=== PATIENT | male | born 1955 | race Caucasian/White ===

== ENCOUNTER → 2018-08-31 14:16 | Outpatient (CLI) | payer OTHER, SELFPAY ==
[2016-07-26 13:10] VITALS: BMI 29.0
--- NOTE | 2018-08-31 14:21 | RAD_ITS ---
STUDY: X-RAY - LUMBAR SPINE REASON FOR EXAM: Male, 62 years old. Pain TECHNIQUE: 5 view(s) of the lumbar spine were obtained. COMPARISON: None FINDINGS: Diffuse degenerative disc and facet disease. No compression deformities. Alignment is normal. Foramina are patent. Arterial calcifications. RAD/L/S Spine Min 4 Views IMPRESSION: Diffuse degenerative disc and facet disease. Foramina are patent. Electronically Signed: Sylvester Schofield MD at 14:46 EST Tel , Service support ,
--- OUTSIDE RECORDS SUMMARY | 2018-12-03 06:42 | XMS RPT_ITS | Continuity of Care Document ---
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 Objective Objective/Function: ALL GOALS MET - Goals Goal 1:: DECREASE C/O LBP Goal Progress: Goal Met Goal 2:: DECREASE C/O LEFT LE SX'S Goal Progres s: Goal Met Goal 3:: IMPROVE BENDING, LIFTING, PUSHING, PULLING, AND WORK FUNCTION Goal Progress: Goal Met Goal 4:: INSTRUCT IN PROPHYLAXIS Goal Progress: Goal Met - Plan Plan: FOCUS ON CORE STRE NGTH AND POSTURE/BODY MECHANICS. MODALITIES NEEDED. PLEASE GIVE STAND BY ASSIST NEEDED FOR BALANCE CHALLENGE EX'S FOR SAFETY. - D/C Information If there are questions or concerns regarding thi s patient's physical therapy, please feel free to call me at [phone]. Thank you for the referral of this patient. Sincerely, Jade Cooney <Electronically signed by Jade Cooney PT, Aubree ert. MDT> 10/24/15 1028 CC: Criss LunaCrispin Betsybrittny Calvert DO DIANA Signed 04-Oct-2015 EKG ([id number]) Comments: ekg showed normal sinus rhythym, normal axis, no acute st/t wave changes Result: [MEASUREMENTS ANALYSIS] Date of Test: 10/04/2015 14:20:52; Heart Rate: 69; SD Interval: 164; QRS: 106; QT Interval: 384; Corrected QT Interval (QTc): 399; P Wave [place]: 41; QRS Wave [place]: 33; T Wave [place] : 22; Blood Pressure: 128/72 [ECG DIAGNOSTIC STATEMENTS] Date of Test: 10/04/2015 14:20:52; Summary: Sinus Rhythm WITHIN NORMAL LIMITS 26-Sep-2015 Inital Evaluation - PT Result: Comments: See Note; NOTES: [facility] [address] [place], [place] [address] Fax REHABILITATION SE [facility] INITIAL EVALUATION MR#: [id number] Acct: [id number] Name: GONZÁLEZ PETTTI Rep #: [id number] : 1955 59 From: Jade Cooney Referring Dr.: Criss Luna Status: REG RCR Insurance: [facility] Date: Patient's Visit Information GONZÁLEZ PETTIT is a 59 year old M, referred to Physical Therapy by Criss Luna,, with a diagnosis of SCIATICA. 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 OFF WORK YESTERDAY AND TODAY FOR THIS. HOPES TO G O BACK TOMORROW. Disability: NO. Present symptoms: LEFT BACK, BUTTOCK, THIGH, AND KNEE. Present since: LAST FRIDAY. Pain Scale: 5-9/10. Currently: WORSENING. Commenced as a result of: NO APPARENT RE ASON. Symptoms at onset: LEFT HIP. Worse: BENDING, SITTING, LIFTING, PUSHING, PULLING, TYING HIS SHOES. Better: STANDING, LYING DOWN, WALKING, PAIN PILLS (MELOXICAM) AND TORODOL SHOT YESTERDAY. HE ALSO STARTED A STEROID DOSE ALONZO TODAY. Disturbed sleep: NO. Previous history: CHRONIC LPP. Previous treatment: CHIROPRACTOR, MASSAGE, SOME PT. Coughing/sneezing/straining: NEGATIVE. Gait: OK NOW BUT UNABL E TO TAKE A FULL STRIDE UNTIL TODAY. LEFT LEG FEELS WEAK AT TIMES. Difficulty initiating urinatin: NO. Accidents: NO. Unexplained weight loss: NO. Imaging: NO. PMH: 2011 TUMOR REMOVED FROM BLADDER CAROLYNE T WAS CANCEROUS. - Objective Sitting Posture: POOR. Standing Posture: POOR. Lordosis: REDUCED. Lateral shift: NO. Active Correction of posture: NO EFFECT. Motor deficit: BILATERAL LE STRENGHT 5/5 W ITH MMT EXCEPT HIP FLEXION 4/5 AND BILATERAL QUADS 4/5. HE HAS BILATERAL KNEE PAIN WITH KNEE ROM AND STRENGHT TESTING. Sensory deficit: NO. ROM deficit: TIGHT BILATERAL HAMSTRINGS AND GASTROC SOLEUS COMPLEX'S. Dural Signs: POSITIVE BILATERAL LE'S LEFT GREATER THAN RIGHT. Lumbar mvmt loss: flex - NIL. ext - MAURO. R SG - MIN. L SG - MIN. Core strength: POOR. Palpation: TENDER AT L45 REGION - Goals Goal 1:: DECREASE C/O LBP Goal Time Frame: 4-6 Weeks Goal 2:: DECREASE C/O LEFT LE SX'S Goal Time Frame: 4-6 Weeks Goal 3:: IMPROVE BENDING, LIFTING, PUSHING, PULLING, AND WORK FUNCTION Goal Time Frame: 4-6 Weeks Goal 4:: INSTRUCT IN PROPHYLAXIS Goal Time Frame: 4-6 Weeks - Rehabilitation Potential Rehabilitation Potential: Good - Anticipated Interventions Patient/Client Instruction: Ed ucate patient on: Condition, Plan of Care, Risk Factors, Benefits of Fitness Program For the Purpose of:: To improve self management Therapeutic Exercise to Include: Strength training, Body mechanics , Postural training, Dynamic Lumbar Stabilization, Scapular Strength/Stabilization For the Purpose of:: To improve ability of physical actions for home/community/work/leisure TENS: Yes Cryotherapy ( ice pack, ice massage): Yes Thermo therapy (hot pack): Yes Ultrasound (thermal/non thermal): Yes For the Purpose of:: To decrease pain, To decrease swelling/inflammation Thank you for the opport unity to evaluate your patient. For Medicare and Medicare HMO plans, please review the plan of care and approve it. It will need to be FAXED BACK to us at [phone] for Medicare purposes. Karine e let me know if there are questions or concerns regarding this plan of care. Physician Signature: Date: <Electronically signed by Jade Cooney > 09/26/15 1149 CC: Criss Calvert DO DIANA Signed For Medicare only, by signing this I certify the plan of care. Physicians Signature Date 27-Jan-2014 Chest without Contrast Result: Comments: See Note; NOTES: [facility] Imaging Services [address] [place] [address] CAT Scan Report MR#: [id number] Acct: [id number] Name: GONZÁLEZ PETTIT Rep #: [id number] : 1955 M 58 From: Dilip Rutledge MD PCP: Betsy Calvert DO Status: REG CLI Study: Chest without Contrast Date of Exam: 01/27/14 Exam# [id number] Ordering Dr: Betsy Calvert DO STUDY: CT CHEST WITHOUT CONTRAST REASON FOR EXAM: Male, 58 years old. Followup for lung nodule. The patient has a history of bladder cancer. RADIATION DOSAGE (If Supplied By Facility): CTDIvol = ( 23.07 ) mG y, DLP = ( 721.24 ) mGycm TECHNIQUE: High resolution transaxial imaging was performed without the administration of intravenous contrast material. Multiplanar coronal and sagittal images were refor matted. COMPARISON: Comparison is made with prior study dated June 16, 2013. FINDINGS: There is evidence of elevation of the right hemidiaphragm. Persistent scarring at the right lung base. Tiny pulmonary nodules are once again seen. There is a stable 8 mm nodule in the peripheral aspect of the left lower lobe. Is also evidence of a persistent 1 cm nodul e in the left lower lobe. Stable left pleural effusion with underlying atelectasis. Normal heart and pericardium. There are multiple small lymph nodes within the mediastinum, which are normal in s ize and morphology most compatible with reactive lymph hyperplasia. Normal hilar regions. Normal unenhanced pulmonary arteries. Normal aorta arch and descending thoracic aorta. There are multi-level degenerative changes of the thoracic spine. Moderate sized hiatal hernia. IMPRESSION: Stable examination. Electronically Signed: Dilip Rutledge MD 201 12/18/14 at 15:16 EDT Tel [phone], Service support [phone], CC: Btesy Calvert DO Tobacco Baler: Signed 16-Jun-2013 Chest without Contrast Result: Comments: See Note; NOTES: [facility] Imaging Services [address] [place] [address] CAT Scan Report MR#: [id number] Acct: [id number] Name: GONZÁLEZ PETTIT Rep #: [id number] : 1955 M 57 From: Dilip Rutledge MD PCP: Betsy Calvert DO Status: REG CLI Study: Chest without Contrast Date of Exam: 06/16/13 Exam# [id number] Ordering Dr: Betsy Calvert DO STUDY: CT CHEST WITHOUT CONTRAST REASON FOR EXAM: Male, 57 years old. Followup for lung nodule. RADIATION DOSAGE (If Supplied By Facility): CTDIvol = ( 20.94 ) mGy, DLP = ( 760.50 ) mGycm TECHNIQUE: High r esolution transaxial imaging was performed without the administration of intravenous contrast material. Multiplanar coronal and sagittal images were reformatted. COMPARISON: Comparison is made with prior examination dated September 01, 2012. FINDINGS: Once again, there is elevation of the right hemidiaphragm. Mild scarring at the right lung base. The previ ously seen tiny pulmonary nodules are once again visualized are these are unchanged. No new abnormality is present. Stable small left pleural effusion with underlying atelectasis. There are calcifi cations of the coronary arteries. There are multiple small lymph nodes within the mediastinum, which are normal in size and morphology most compatible with reactive lymph hyperplasia. The largest me asures 2 cm and is in the aortopulmonary window. Normal hilar regions. Normal unenhanced pulmonary arteries. Normal aorta arch and descending thoracic aorta. Once again, there is evidence of healed bilateral rib fractures. There is no demonstrated abnormality of the visualized upper abdomen. IMPRESSION: Stable examination. Signed: Michaela Alvarez June 16, 2013 at 9:49:54 AM EDT [phone] Electronically Signed GP/GP If you are the referring physician and would like to consult with the radiologist who provided this interpretation, please contact Dilip Rutledge M.D. at [phone]. If this radiologist is unavailable, you will be directed to another radiologist to assist. If you are a patient with a question regarding thi s report, please contact your referring physician directly. Professional Interpretation Provided By: [employer], Phone , These documents contain legally protected an d confidential health information intended only for the use of the individual or entity named above. If you are not the intended recipient, you are hereby notified that any disclosure, copying, distr ibution, or other use of these documents is strictly prohibited. If you have received this information in error, please notify the sender immediately and arrange for the return or destruction of thes e documents. CC: Betsy Calvert DO Tobacco Baler: Signed 16-Jun-2013 Chest without Contrast Result: Comments: See Note; NOTES: [facility] Imaging Services [address] [place] [id number] CAT Scan Report MR#: [id number] Acct: [id number] Name: GONZÁLEZ PETTIT Rep #: [id number] : 1955 M 57 From: Dilip Rutledge MD PCP: Betsy Calvert DO Status: REG CLI Study: Chest without Contrast Date of Exam: 06/16/13 Exam# [id number] Ordering Dr: Betsy Calvert DO STUDY: CT CHEST WITHOUT CONTRAST REASON FOR EXAM: Male, 57 years old. Followup for lung nodule. RADIATION DOSAGE (If Supplied By Facility): CTDIvol = ( 20.94 ) mGy, DLP = ( 760.50 ) mGycm TECHNIQUE: High r esolution transaxial imaging was performed without the administration of intravenous contrast material. Multiplanar coronal and sagittal images were reformatted. COMPARISON: Comparison is made with prior examination dated September 01, 2012. FINDINGS: Once again, there is elevation of the right hemidiaphragm. Mild scarring at the right lung base. The previ ously seen tiny pulmonary nodules are once again visualized are these are unchanged. No new abnormality is present. Stable small left pleural effusion with underlying atelectasis. There are calcifi cations of the coronary arteries. There are multiple small lymph nodes within the mediastinum, which are normal in size and morphology most compatible with reactive lymph hyperplasia. The largest me asures 2 cm and is in the aortopulmonary window. Normal hilar regions. Normal unenhanced pulmonary arteries. Normal aorta arch and descending thoracic aorta. Once again, there is evidence of healed bilateral rib fractures. There is no demonstrated abnormality of the visualized upper abdomen. IMPRESSION: Stable examination. Signed: Michaela Alvarez June 16, 2013 at 9:49:54 AM EDT [phone] Electronically Signed GP/GP If you are the referring physician and would like to consult with the radiologist who provided this interpretation, please contact Dilip Rutledge M.D. at [phone]. If this radiologist is unavailable, you will be directed to another radiologist to assist. If you are a patient with a question regarding thi s report, please contact your referring physician directly. Professional Interpretation Provided By: [employer], Phone , These documents contain legally protected an d confidential health information intended only for the use of the individual or entity named above. If you are not the intended recipient, you are hereby notified that any disclosure, copying, distr ibution, or other use of these documents is strictly prohibited. If you have received this information in error, please notify the sender immediately and arrange for the return or destruction of thes e documents. CC: Betsy Calvert DO Tobacco Baler: Signed Immunization Name Dates Details Influenza (3 years and up) on: 18-Aug-2006 Influenza (3 years and up) on: 22-Aug-2006 Influenza (3 years and up) on: 07-Jul-2007 Comments: given in left deltoid, 0.5cc, lot#[id number], exp. ..08 WF Influenza (3 years and up) on: 15-Jul-2008 Comments: Lot #[id number]-right deltoidDose0.5mlgiven by Aurelia Kraft LPN Influenza (3 years and up) on: 16-Jun-2009 Family History Unknown Family Member Name Dates Details Father Comments: In good health Status: Active Mother Comments: from air embolus during surgery Status: Active Social History Name Dates Details Non Drinker/No Alcohol Use Status: Active Non Smoker/No Tobacco Use Comments: 04/30/11 Status: Active Tobacco use: Never smoker. Comments: 10/09/11 Status: Active Tobacco use: Never smoker. Status: Inactive Tobacco use: Never smoker. Status: Inactive Tobacco use: Never smoker. Status: Inactive Tobacco use: Never smoker. Status: Inactive Smoking Status Name Dates Details Never smoker Vital Signs Date Test Result Details :41 Temperature 98.1 f Comments: Method: Temporal Pulse 91 /min Comments: Pattern: Regular Respiration Rate 17 /min Comments: Pattern: Unlabored O2 SAT 97 % Comments: Room air BP Systolic 158 mm[Hg] Comments: Patient Position: Sitting; Cuff Location: Left Arm; Cuff Size: Standard BP Diastolic 82 mm[Hg] Comments: Patient Position: Sitting; Cuff Location: Left Arm; Cuff Size: Standard Weight 219.125 lb Height 68.75 in Body Mass Index Calculated 32.59 kg/m2 Body Surface Area Calculated 2.14 m2 :05 Temperature 97.6 f Pulse 79 /min Comments: Pattern: Regular Respiration Rate 16 /min Comments: Pattern: Unlabored O2 SAT 94 % Comments: Room air BP Systolic 148 mm[Hg] Comments: Patient Position: Sitting; Cuff Location: Left Arm; Cuff Size: Standard BP Diastolic 86 mm[Hg] Comments: Patient Position: Sitting; Cuff Location: Left Arm; Cuff Size: Standard Weight 219.125 lb Height 68.75 in Body Mass Index Calculated 32.59 kg/m2 Body Surface Area Calculated 2.14 m2 :18 Pulse 70 /min Comments: Pattern: Regular Respiration Rate 18 /min Comments: Pattern: Unlabored O2 SAT 96 % Comments: Room air BP Systolic 132 mm[Hg] Comments: Patient Position: Sitting; Cuff Location: Left Arm; Cuff Size: Standard BP Diastolic 80 mm[Hg] Comments: Patient Position: Sitting; Cuff Location: Left Arm; Cuff Size: Standard Weight 219.125 lb Height 68.75 in Body Mass Index Calculated 32.59 kg/m2 Body Surface Area Calculated 2.14 m2 :58 Pulse 74 /min Comments: Pattern: Regular Respiration Rate 18 /min Comments: Pattern: Unlabored O2 SAT 96 % Comments: Room air BP Systolic 162 mm[Hg] Comments: Patient Position: Sitting; Cuff Location: Left Arm; Cuff Size: Large BP Diastolic 102 mm[Hg] Comments: Patient Position: Sitting; Cuff Location: Left Arm; Cuff Size: Large Weight 219.125 lb Height 68.75 in Body Mass Index Calculated 32.59 kg/m2 Body Surface Area Calculated 2.14 m2 :55 BP Systolic 132 mm[Hg] Comments: Patient Position: Sitting; Cuff Location: Left Arm; Cuff Size: Standard BP Diastolic 84 mm[Hg] Comments: Patient Position: Sitting; Cuff Location: Left Arm; Cuff Size: Standard :59 Pulse 57 /min Comments: Pattern: Regular Respiration Rate 18 /min Comments: Pattern: Unlabored O2 SAT 93 % Comments: Room air BP Systolic 140 mm[Hg] Comments: Patient Position: Sitting; Cuff Location: Left Arm; Cuff Size: Large BP Diastolic 80 mm[Hg] Comments: Patient Position: Sitting; Cuff Location: Left Arm; Cuff Size: Large Weight 218.125 lb Height 68.75 in Body Mass Index Calculated 32.45 kg/m2 Body Surface Area Calculated 2.14 m2 :43 BP Systolic 158 mm[Hg] Comments: Patient Position: Sitting; Cuff Location: Left Arm; Cuff Size: Standard BP Diastolic 80 mm[Hg] Comments: Patient Position: Sitting; Cuff Location: Left Arm; Cuff Size: Standard Weight 208.375 lb Height 68.75 in Body Mass Index Calculated 31 kg/m2 Body Surface Area Calculated 2.1 m2 :13 Pulse 64 /min Comments: Pattern: Regular Respiration Rate 18 /min Comments: Pattern: Unlabored O2 SAT 92 % Comments: Room air BP Systolic 128 mm[Hg] Comments: Patient Position: Sitting; Cuff Location: Left Arm; Cuff Size: Large BP Diastolic 70 mm[Hg] Comments: Patient Position: Sitting; Cuff Location: Left Arm; Cuff Size: Large Weight 208.375 lb Height 68.75 in Body Mass Index Calculated 31 kg/m2 Body Surface Area Calculated 2.1 m2 :40 Pulse 85 /min Comments: Pattern: Regular Respiration Rate 18 /min Comments: Pattern: Unlabored O2 SAT 95 % Comments: Room air BP Systolic 128 mm[Hg] Comments: Patient Position: Sitting; Cuff Location: Left Arm; Cuff Size: Large BP Diastolic 70 mm[Hg] Comments: Patient Position: Sitting; Cuff Location: Left Arm; Cuff Size: Large Weight 210.125 lb Height 68.75 in Body Mass Index Calculated 31.26 kg/m2 Body Surface Area Calculated 2.1 m2 :40 Pulse 84 /min Comments: Pattern: Regular Respiration Rate 18 /min Comments: Pattern: Unlabored O2 SAT 94 % Comments: Room air BP Systolic 144 mm[Hg] Comments: Patient Position: Sitting; Cuff Location: Left Arm; Cuff Size: Large BP Diastolic 82 mm[Hg] Comments: Patient Position: Sitting; Cuff Location: Left Arm; Cuff Size: Large Weight 210.125 lb Height 68.75 in Body Mass Index Calculated 31.26 kg/m2 Body Surface Area Calculated 2.1 m2 :17 Pulse 72 /min Comments: Pattern: Regular Respiration Rate 18 /min Comments: Pattern: Unlabored O2 SAT 93 % Comments: Room air BP Systolic 124 mm[Hg] Comments: Patient Position: Sitting; Cuff Location: Left Arm; Cuff Size: Large BP Diastolic 82 mm[Hg] Comments: Patient Position: Sitting; Cuff Location: Left Arm; Cuff Size: Large Weight 209.375 lb Height 68.75 in Body Mass Index Calculated 31.14 kg/m2 Body Surface Area Calculated 2.1 m2 :38 Pulse 68 /min Comments: Pattern: Regular Respiration Rate 18 /min Comments: Pattern: Unlabored O2 SAT 98 % Comments: Room air BP Systolic 128 mm[Hg] Comments: Patient Position: Sitting; Cuff Location: Left Arm; Cuff Size: Large BP Diastolic 78 mm[Hg] Comments: Patient Position: Sitting; Cuff Location: Left Arm; Cuff Size: Large Weight 210 lb Height 68.75 in Body Mass Index Calculated 31.24 kg/m2 Body Surface Area Calculated 2.1 m2 :27 Temperature 97.4 f Pulse 65 /min Comments: Pattern: Regular Respiration Rate 18 /min Comments: Pattern: Unlabored O2 SAT 95 % Comments: Room air BP Systolic 122 mm[Hg] Comments: Patient Position: Sitting; Cuff Location: Left Arm; Cuff Size: Large BP Diastolic 80 mm[Hg] Comments: Patient Position: Sitting; Cuff Location: Left Arm; Cuff Size: Large Weight 211.25 lb Height 68.75 in Body Mass Index Calculated 31.42 kg/m2 Body Surface Area Calculated 2.11 m2 :27 Temperature 98.1 f Comments: Method: Tympanic Pulse 79 /min Comments: Pattern: Regular Respiration Rate 18 /min Comments: Pattern: Unlabored O2 SAT 96 % Comments: Room air BP Systolic 120 mm[Hg] Comments: Patient Position: Sitting; Cuff Location: Left Arm; Cuff Size: Standard BP Diastolic 78 mm[Hg] Comments: Patient Position: Sitting; Cuff Location: Left Arm; Cuff Size: Standard Weight 211.125 lb Height 68.75 in Body Mass Index Calculated 31.4 kg/m2 Body Surface Area Calculated 2.11 m2 :52 Temperature 98.2 f Pulse 55 /min Comments: Pattern: Regular Respiration Rate 17 /min Comments: Pattern: Unlabored O2 SAT 96 % Comments: Room air BP Systolic 126 mm[Hg] Comments: Patient Position: Sitting; Cuff Location: Left Arm; Cuff Size: Standard BP Diastolic 84 mm[Hg] Comments: Patient Position: Sitting; Cuff Location: Left Arm; Cuff Size: Standard Weight 211.125 lb Height 68.75 in Body Mass Index Calculated 31.4 kg/m2 Body Surface Area Calculated 2.11 m2 :24 Temperature 97.4 f Pulse 71 /min Comments: Pattern: Regular Respiration Rate 16 /min Comments: Pattern: Unlabored O2 SAT 97 % Comments: Room air BP Systolic 120 mm[Hg] Comments: Patient Position: Sitting; Cuff Location: Left Arm; Cuff Size: Standard BP Diastolic 82 mm[Hg] Comments: Patient Position: Sitting; Cuff Location: Left Arm; Cuff Size: Standard Weight 211.125 lb Height 68.75 in Body Mass Index Calculated 31.4 kg/m2 Body Surface Area Calculated 2.11 m2 :33 Temperature 97.1 f Comments: Method: Temporal Pulse 72 /min Comments: Pattern: Regular Respiration Rate 16 /min Comments: Pattern: Unlabored BP Systolic 128 mm[Hg] Comments: Patient Position: Sitting; Cuff Location: Left Arm; Cuff Size: Standard BP Diastolic 72 mm[Hg] Comments: Patient Position: Sitting; Cuff Location: Left Arm; Cuff Size: Standard Weight 211.125 lb Height 68.75 in Body Mass Index Calculated 31.4 kg/m2 Body Surface Area Calculated 2.11 m2 :36 Temperature 98.2 f Comments: Method: Temporal Pulse 71 /min Comments: Pattern: Regular Respiration Rate 17 /min Comments: Pattern: Unlabored O2 SAT 96 % Comments: Room air BP Systolic 140 mm[Hg] Comments: Patient Position: Sitting; Cuff Location: Left Arm; Cuff Size: Standard BP Diastolic 84 mm[Hg] Comments: Patient Position: Sitting; Cuff Location: Left Arm; Cuff Size: Standard Weight 212.125 lb Height 68.75 in Body Mass Index Calculated 31.55 kg/m2 Body Surface Area Calculated 2.11 m2 :17 Temperature 98.2 f Pulse 87 /min Comments: Pattern: Regular Respiration Rate 16 /min Comments: Pattern: Unlabored O2 SAT 97 % Comments: Room air BP Systolic 142 mm[Hg] Comments: Patient Position: Sitting; Cuff Location: Left Arm; Cuff Size: Standard BP Diastolic 82 mm[Hg] Comments: Patient Position: Sitting; Cuff Location: Left Arm; Cuff Size: Standard Weight 212.125 lb Height 68.75 in Body Mass Index Calculated 31.55 kg/m2 Body Surface Area Calculated 2.11 m2 :13 Temperature 97.5 f Pulse 68 /min Comments: Pattern: Regular Respiration Rate 16 /min Comments: Pattern: Unlabored BP Systolic 118 mm[Hg] Comments: Patient Position: Sitting; Cuff Location: Left Arm; Cuff Size: Large BP Diastolic 82 mm[Hg] Comments: Patient Position: Sitting; Cuff Location: Left Arm; Cuff Size: Large Weight 215 lb Height 68.75 in Body Mass Index Calculated 31.98 kg/m2 Body Surface Area Calculated 2.12 m2 :19 Temperature 98.7 f Comments: Method: Oral Pulse 90 /min Comments: Pattern: Regular Respiration Rate 18 /min O2 SAT 96 % Comments: Room air BP Systolic 122 mm[Hg] Comments: Patient Position: Sitting; Cuff Location: Left Arm; Cuff Size: Standard BP Diastolic 80 mm[Hg] Comments: Patient Position: Sitting; Cuff Location: Left Arm; Cuff Size: Standard Weight 212 lb Height 68.75 in Body Mass Index Calculated 31.53 kg/m2 Body Surface Area Calculated 2.11 m2 :19 Temperature 97.7 f Pulse 60 /min Comments: Pattern: Regular Respiration Rate 16 /min Comments: Pattern: Unlabored BP Systolic 114 mm[Hg] Comments: Patient Position: Sitting; Cuff Location: Left Arm; Cuff Size: Large BP Diastolic 82 mm[Hg] Comments: Patient Position: Sitting; Cuff Location: Left Arm; Cuff Size: Large Weight 212 lb Height 68.75 in Body Mass Index Calculated 31.53 kg/m2 Body Surface Area Calculated 2.11 m2 :08 Temperature 98 f Comments: Method: Oral Pulse 84 /min Comments: Pattern: Regular Respiration Rate 17 /min O2 SAT 98 % Comments: Room air BP Systolic 150 mm[Hg] Comments: Patient Position: Sitting; Cuff Location: Left Arm; Cuff Size: Standard BP Diastolic 82 mm[Hg] Comments: Patient Position: Sitting; Cuff Location: Left Arm; Cuff Size: Standard Weight 218.1875 lb Height 68.75 in Body Mass Index Calculated 32.46 kg/m2 Body Surface Area Calculated 2.14 m2 :20 Temperature 97.2 f Comments: Method: Temporal Pulse 80 /min Comments: Pattern: Regular Respiration Rate 17 /min Comments: Pattern: Unlabored O2 SAT 94 % Comments: Room air BP Systolic 118 mm[Hg] Comments: Patient Position: Sitting; Cuff Location: Left Arm; Cuff Size: Standard BP Diastolic 74 mm[Hg] Comments: Patient Position: Sitting; Cuff Location: Left Arm; Cuff Size: Standard Weight 218.1875 lb Height 68.75 in Body Mass Index Calculated 32.46 kg/m2 Body Surface Area Calculated 2.14 m2 :40 Temperature 98.3 f Comments: Method: Oral Pulse 72 /min Comments: Pattern: Regular Respiration Rate 18 /min Comments: Pattern: Unlabored O2 SAT 96 % Comments: Room air BP Systolic 110 mm[Hg] Comments: Patient Position: Sitting; Cuff Location: Left Arm; Cuff Size: Standard BP Diastolic 72 mm[Hg] Comments: Patient Position: Sitting; Cuff Location: Left Arm; Cuff Size: Standard Weight 218.1875 lb Height 68.75 in Body Mass Index Calculated 32.46 kg/m2 Body Surface Area Calculated 2.14 m2 :18 Temperature 96.7 f Comments: Method: Oral Pulse 59 /min Comments: Pattern: Regular Respiration Rate 18 /min Comments: Pattern: Unlabored O2 SAT 98 % Comments: Room air BP Systolic 128 mm[Hg] Comments: Patient Position: Sitting; Cuff Location: Left Arm; Cuff Size: Standard BP Diastolic 72 mm[Hg] Comments: Patient Position: Sitting; Cuff Location: Left Arm; Cuff Size: Standard Weight 213.1875 lb Height 68.75 in Body Mass Index Calculated 31.71 kg/m2 Body Surface Area Calculated 2.12 m2 :05 Temperature 97.9 f Comments: Method: Oral Pulse 60 /min Comments: Pattern: Regular Respiration Rate 18 /min O2 SAT 97 % Comments: Room air BP Systolic 120 mm[Hg] Comments: Patient Position: Sitting; Cuff Location: Left Arm; Cuff Size: Standard BP Diastolic 78 mm[Hg] Comments: Patient Position: Sitting; Cuff Location: Left Arm; Cuff Size: Standard Weight 213 lb Height 68.75 in Body Mass Index Calculated 31.68 kg/m2 Body Surface Area Calculated 2.12 m2 :11 Temperature 97.8 f Comments: Method: Oral Pulse 70 /min Comments: Pattern: Regular Respiration Rate 18 /min Comments: Pattern: Unlabored BP Systolic 116 mm[Hg] Comments: Patient Position: Sitting; Cuff Location: Left Arm; Cuff Size: Standard BP Diastolic 76 mm[Hg] Comments: Patient Position: Sitting; Cuff Location: Left Arm; Cuff Size: Standard Weight 213 lb Height 68.75 in Body Mass Index Calculated 31.68 kg/m2 Body Surface Area Calculated 2.12 m2 :20 Temperature 97.7 f Pulse 64 /min Comments: Pattern: Regular Respiration Rate 16 /min Comments: Pattern: Unlabored BP Systolic 114 mm[Hg] Comments: Patient Position: Sitting; Cuff Location: Left Arm; Cuff Size: Large BP Diastolic 84 mm[Hg] Comments: Patient Position: Sitting; Cuff Location: Left Arm; Cuff Size: Large Weight 213 lb Height 68.75 in Body Mass Index Calculated 31.68 kg/m2 Body Surface Area Calculated 2.12 m2 :17 Temperature 97.4 f Pulse 64 /min Comments: Pattern: Regular Respiration Rate 18 /min Comments: Pattern: Unlabored BP Systolic 126 mm[Hg] Comments: Patient Position: Sitting; Cuff Location: Left Arm; Cuff Size: Large BP Diastolic 74 mm[Hg] Comments: Patient Position: Sitting; Cuff Location: Left Arm; Cuff Size: Large Weight 213 lb Height 68.75 in Body Mass Index Calculated 31.68 kg/m2 Body Surface Area Calculated 2.12 m2 :48 Temperature 97.6 f Comments: Method: Oral Pulse 60 /min Comments: Pattern: Regular Respiration Rate 18 /min BP Systolic 108 mm[Hg] Comments: Patient Position: Sitting; Cuff Location: Left Arm; Cuff Size: Standard BP Diastolic 70 mm[Hg] Comments: Patient Position: Sitting; Cuff Location: Left Arm; Cuff Size: Standard Weight 211 lb Height 68.75 in Body Mass Index Calculated 31.39 kg/m2 Body Surface Area Calculated 2.11 m2 :54 Temperature 97.3 f Pulse 58 /min Comments: Pattern: Regular Respiration Rate 18 /min Comments: Pattern: Unlabored BP Systolic 106 mm[Hg] Comments: Patient Position: Sitting; Cuff Location: Left Arm; Cuff Size: Large BP Diastolic 72 mm[Hg] Comments: Patient Position: Sitting; Cuff Location: Left Arm; Cuff Size: Large Weight 211 lb Height 68.75 in Body Mass Index Calculated 31.39 kg/m2 Body Surface Area Calculated 2.11 m2 :10 Temperature 97.9 f Comments: Method: Oral Pulse 60 /min Comments: Pattern: Regular Respiration Rate 18 /min O2 SAT 97 % Comments: Room air BP Systolic 118 mm[Hg] Comments: Patient Position: Sitting; Cuff Location: Left Arm; Cuff Size: Standard BP Diastolic 80 mm[Hg] Comments: Patient Position: Sitting; Cuff Location: Left Arm; Cuff Size: Standard Weight 209 lb Height 68.75 in Body Mass Index Calculated 31.09 kg/m2 Body Surface Area Calculated 2.1 m2 :14 Temperature 99 f Pulse 64 /min Comments: Pattern: Regular Respiration Rate 16 /min Comments: Pattern: Unlabored BP Systolic 126 mm[Hg] Comments: Patient Position: Sitting; Cuff Location: Left Arm; Cuff Size: Large BP Diastolic 82 mm[Hg] Comments: Patient Position: Sitting; Cuff Location: Left Arm; Cuff Size: Large Weight 209 lb Height 68.75 in Body Mass Index Calculated 31.09 kg/m2 Body Surface Area Calculated 2.1 m2 :23 Comments: no meds yet today Temperature 100.6 f Comments: Method: Oral Pulse 90 /min Comments: Pattern: Regular O2 SAT 96 % Comments: Room air BP Systolic 140 mm[Hg] Comments: Patient Position: Sitting; Cuff Location: Left Arm; Cuff Size: Standard BP Diastolic 84 mm[Hg] Comments: Patient Position: Sitting; Cuff Location: Left Arm; Cuff Size: Standard Weight 210 lb Height 68.75 in Body Mass Index Calculated 31.24 kg/m2 Body Surface Area Calculated 2.1 m2 :09 Temperature 98.1 f Pulse 72 /min Comments: Pattern: Regular Respiration Rate 16 /min Comments: Pattern: Unlabored BP Systolic 120 mm[Hg] Comments: Patient Position: Sitting; Cuff Location: Left Arm; Cuff Size: Large BP Diastolic 72 mm[Hg] Comments: Patient Position: Sitting; Cuff Location: Left Arm; Cuff Size: Large Weight 210 lb Height 68.75 in Body Mass Index Calculated 31.24 kg/m2 Body Surface Area Calculated 2.1 m2 :08 Temperature 98.2 f Comments: Method: Oral Pulse 60 /min Comments: Pattern: Regular Respiration Rate 20 /min Comments: Pattern: Unlabored BP Systolic 120 mm[Hg] Comments: Patient Position: Sitting; Cuff Location: Left Arm; Cuff Size: Large BP Diastolic 80 mm[Hg] Comments: Patient Position: Sitting; Cuff Location: Left Arm; Cuff Size: Large Weight 207 lb Height 68.75 in Body Mass Index Calculated 30.79 kg/m2 Body Surface Area Calculated 2.09 m2 :56 Temperature 98.3 f Comments: Method: Oral Pulse 68 /min Comments: Pattern: Regular Respiration Rate 18 /min Comments: Pattern: Unlabored BP Systolic 110 mm[Hg] Comments: Patient Position: Sitting; Cuff Location: Left Arm; Cuff Size: Large BP Diastolic 72 mm[Hg] Comments: Patient Position: Sitting; Cuff Location: Left Arm; Cuff Size: Large Weight 201 lb Height 68.75 in Body Mass Index Calculated 29.9 kg/m2 Body Surface Area Calculated 2.06 m2 :19 Temperature 96.7 f Pulse 58 /min Comments: Pattern: Regular Respiration Rate 18 /min Comments: Pattern: Unlabored BP Systolic 110 mm[Hg] Comments: Patient Position: Sitting; Cuff Location: Left Arm; Cuff Size: Large BP Diastolic 80 mm[Hg] Comments: Patient Position: Sitting; Cuff Location: Left Arm; Cuff Size: Large Weight 208 lb Height 68.75 in Body Mass Index Calculated 30.94 kg/m2 Body Surface Area Calculated 2.1 m2 :36 Temperature 98.2 f Comments: Method: Oral Pulse 78 /min Comments: Pattern: Regular Respiration Rate 16 /min Comments: Pattern: Unlabored O2 SAT 96 % Comments: Room air BP Systolic 138 mm[Hg] Comments: Patient Position: Sitting; Cuff Location: Left Arm; Cuff Size: Standard BP Diastolic 74 mm[Hg] Comments: Patient Position: Sitting; Cuff Location: Left Arm; Cuff Size: Standard Weight 208 lb Height 68.75 in Body Mass Index Calculated 30.94 kg/m2 Body Surface Area Calculated 2.1 m2 :06 Temperature 98.7 f Comments: Method: Oral Pulse 90 /min Comments: Pattern: Regular Respiration Rate 18 /min Comments: Pattern: Unlabored BP Systolic 128 mm[Hg] Comments: Patient Position: Sitting; Cuff Location: Left Arm; Cuff Size: Large BP Diastolic 62 mm[Hg] Comments: Patient Position: Sitting; Cuff Location: Left Arm; Cuff Size: Large Weight 208 lb Height 68.75 in Body Mass Index Calculated 30.94 kg/m2 Body Surface Area Calculated 2.1 m2 :05 Temperature 97.5 f Comments: Method: Oral Pulse 70 /min Comments: Pattern: Regular Respiration Rate 16 /min Comments: Pattern: Unlabored BP Systolic 132 mm[Hg] Comments: Patient Position: Sitting; Cuff Location: Left Arm; Cuff Size: Standard BP Diastolic 82 mm[Hg] Comments: Patient Position: Sitting; Cuff Location: Left Arm; Cuff Size: Standard Weight 210 lb Height 68.75 in Body Mass Index Calculated 31.24 kg/m2 Body Surface Area Calculated 2.1 m2 :35 Temperature 98 f Pulse 76 /min Comments: Pattern: Regular Respiration Rate 16 /min Comments: Pattern: Unlabored BP Systolic 120 mm[Hg] Comments: Patient Position: Sitting; Cuff Location: Left Arm; Cuff Size: Standard BP Diastolic 86 mm[Hg] Comments: Patient Position: Sitting; Cuff Location: Left Arm; Cuff Size: Standard Weight 210 lb Height 68.75 in Body Mass Index Calculated 31.24 kg/m2 Body Surface Area Calculated 2.1 m2 :30 Temperature 98.1 f Comments: Method: Oral Pulse 70 /min Comments: Pattern: Regular Respiration Rate 16 /min Comments: Pattern: Unlabored BP Systolic 122 mm[Hg] Comments: Patient Position: Sitting; Cuff Location: Left Arm; Cuff Size: Standard BP Diastolic 80 mm[Hg] Comments: Patient Position: Sitting; Cuff Location: Left Arm; Cuff Size: Standard Weight 208 lb Height 68.75 in Body Mass Index Calculated 30.94 kg/m2 Body Surface Area Calculated 2.1 m2 :16 Temperature 97.8 f Comments: Method: Oral Pulse 62 /min Comments: Pattern: Regular Respiration Rate 16 /min Comments: Pattern: Unlabored O2 SAT 96 % Comments: Room air BP Systolic 128 mm[Hg] Comments: Patient Position: Sitting; Cuff Location: Left Arm; Cuff Size: Standard BP Diastolic 80 mm[Hg] Comments: Patient Position: Sitting; Cuff Location: Left Arm; Cuff Size: Standard Weight 208 lb Height 68.75 in Body Mass Index Calculated 30.94 kg/m2 Body Surface Area Calculated 2.1 m2 :02 Temperature 98 f Comments: Method: Oral Pulse 78 /min Comments: Pattern: Regular Respiration Rate 16 /min BP Systolic 124 mm[Hg] Comments: Patient Position: Sitting; Cuff Location: Left Arm; Cuff Size: Standard BP Diastolic 84 mm[Hg] Comments: Patient Position: Sitting; Cuff Location: Left Arm; Cuff Size: Standard Weight 208 lb Height 68.75 in Body Mass Index Calculated 30.94 kg/m2 Body Surface Area Calculated 2.1 m2 :18 Temperature 98.5 f Comments: Method: Oral Pulse 78 /min Comments: Pattern: Regular Respiration Rate 17 /min Comments: Pattern: Unlabored BP Systolic 132 mm[Hg] Comments: Patient Position: Sitting; Cuff Location: Left Arm; Cuff Size: Standard BP Diastolic 82 mm[Hg] Comments: Patient Position: Sitting; Cuff Location: Left Arm; Cuff Size: Standard Weight 208 lb Height 68.75 in Body Mass Index Calculated 30.94 kg/m2 Body Surface Area Calculated 2.1 m2 :04 Temperature 99 f Comments: Method: Oral Pulse 72 /min Comments: Pattern: Regular Respiration Rate 16 /min BP Systolic 136 mm[Hg] Comments: Patient Position: Sitting; Cuff Location: Left Arm; Cuff Size: Standard BP Diastolic 78 mm[Hg] Comments: Patient Position: Sitting; Cuff Location: Left Arm; Cuff Size: Standard Weight 208 lb Height 68.75 in Body Mass Index Calculated 30.94 kg/m2 Body Surface Area Calculated 2.1 m2 :08 Temperature 99 f Pulse 80 /min Comments: Pattern: Regular Respiration Rate 18 /min Comments: Pattern: Unlabored BP Systolic 114 mm[Hg] Comments: Patient Position: Sitting; Cuff Location: Left Arm; Cuff Size: Large BP Diastolic 76 mm[Hg] Comments: Patient Position: Sitting; Cuff Location: Left Arm; Cuff Size: Large Weight 208 lb Height 68.75 in Body Mass Index Calculated 30.94 kg/m2 Body Surface Area Calculated 2.1 m2 :29 Temperature 97.8 f Comments: Method: Oral Pulse 82 /min Comments: Pattern: Regular Respiration Rate 16 /min Comments: Pattern: Unlabored BP Systolic 128 mm[Hg] Comments: Patient Position: Sitting; Cuff Location: Left Arm; Cuff Size: Standard BP Diastolic 84 mm[Hg] Comments: Patient Position: Sitting; Cuff Location: Left Arm; Cuff Size: Standard Weight 214 lb :45 Temperature 97.7 f Comments: Method: Oral Pulse 84 /min Comments: Pattern: Regular Respiration Rate 17 /min Comments: Pattern: Unlabored BP Systolic 136 mm[Hg] Comments: Patient Position: Sitting; Cuff Location: Left Arm; Cuff Size: Standard BP Diastolic 82 mm[Hg] Comments: Patient Position: Sitting; Cuff Location: Left Arm; Cuff Size: Standard Weight 214 lb :14 Temperature 97.8 f Pulse 80 /min Comments: Pattern: Regular Respiration Rate 18 /min Comments: Pattern: Unlabored BP Systolic 118 mm[Hg] Comments: Patient Position: Sitting; Cuff Location: Left Arm; Cuff Size: Standard BP Diastolic 82 mm[Hg] Comments: Patient Position: Sitting; Cuff Location: Left Arm; Cuff Size: Standard Weight 214 lb :15 Temperature 97.2 f Comments: Method: Oral Pulse 78 /min Comments: Pattern: Regular Respiration Rate 16 /min Comments: Pattern: Unlabored BP Systolic 142 mm[Hg] Comments: Patient Position: Sitting; Cuff Location: Left Arm; Cuff Size: Standard BP Diastolic 82 mm[Hg] Comments: Patient Position: Sitting; Cuff Location: Left Arm; Cuff Size: Standard Weight 219 lb :53 Pulse 80 /min Comments: Pattern: Regular Respiration Rate 16 /min Comments: Pattern: Unlabored BP Systolic 110 mm[Hg] Comments: Patient Position: Sitting; Cuff Location: Left Arm; Cuff Size: Large BP Diastolic 58 mm[Hg] Comments: Patient Position: Sitting; Cuff Location: Left Arm; Cuff Size: Large :40 Temperature 96.8 f Comments: Method: Oral Pulse 80 /min Comments: Pattern: Regular Respiration Rate 17 /min Comments: Pattern: Unlabored BP Systolic 140 mm[Hg] Comments: Patient Position: Sitting; Cuff Location: Left Arm; Cuff Size: Large BP Diastolic 76 mm[Hg] Comments: Patient Position: Sitting; Cuff Location: Left Arm; Cuff Size: Large :24 Temperature 96.7 f Pulse 64 /min Comments: Pattern: Regular Respiration Rate 18 /min Comments: Pattern: Unlabored BP Systolic 124 mm[Hg] Comments: Patient Position: Sitting; Cuff Location: Left Arm; Cuff Size: Standard BP Diastolic 80 mm[Hg] Comments: Patient Position: Sitting; Cuff Location: Left Arm; Cuff Size: Standard Weight 219 lb :53 Temperature 98.1 f Pulse 68 /min Comments: Pattern: Regular Respiration Rate 18 /min Comments: Pattern: Unlabored BP Systolic 128 mm[Hg] Comments: Patient Position: Sitting; Cuff Location: Left Arm; Cuff Size: Large BP Diastolic 78 mm[Hg] Comments: Patient Position: Sitting; Cuff Location: Left Arm; Cuff Size: Large Weight 219 lb :43 Temperature 98.8 f Comments: Method: Oral Pulse 72 /min Comments: Pattern: Regular Respiration Rate 16 /min Comments: Pattern: Unlabored BP Systolic 134 mm[Hg] Comments: Patient Position: Supine; Cuff Location: Left Arm; Cuff Size: Standard BP Diastolic 78 mm[Hg] Comments: Patient Position: Supine; Cuff Location: Left Arm; Cuff Size: Standard Weight 219.375 lb Height 71 in Body Mass Index Calculated 30.6 kg/m2 Body Surface Area Calculated 2.19 m2 Head Circumference 0.00 cm :01 Temperature 96.6 f Comments: Method: Oral Pulse 74 /min Comments: Pattern: Regular Respiration Rate 19 /min Comments: Pattern: Unlabored BP Systolic 120 mm[Hg] Comments: Patient Position: Sitting; Cuff Location: Left Arm; Cuff Size: Standard BP Diastolic 72 mm[Hg] Comments: Patient Position: Sitting; Cuff Location: Left Arm; Cuff Size: Standard Weight 221.25 lb Height 0 in Head Circumference 0.00 cm :06 Temperature 99 f Comments: Method: Oral Pulse 74 /min Comments: Pattern: Regular Respiration Rate 18 /min Comments: Pattern: Unlabored BP Systolic 122 mm[Hg] Comments: Patient Position: Sitting; Cuff Location: Left Arm; Cuff Size: Large BP Diastolic 74 mm[Hg] Comments: Patient Position: Sitting; Cuff Location: Left Arm; Cuff Size: Large Weight 221.25 lb Height 0 in Head Circumference 0.00 cm :15 Temperature 98.6 f Comments: Method: Undefined Pulse 72 /min Comments: Pattern: Regular Respiration Rate 18 /min Comments: Pattern: Undefined BP Systolic 138 mm[Hg] Comments: Patient Position: Sitting; Cuff Location: Right Arm; Cuff Size: Large BP Diastolic 84 mm[Hg] Comments: Patient Position: Sitting; Cuff Location: Right Arm; Cuff Size: Large Weight 219 lb Height 0 in Head Circumference 0.00 cm :57 O2 SAT 92 % Comments: 2L O2 Weight 0 lb Height 0 in Head Circumference 0.00 cm :14 Pulse 88 /min Comments: Pattern: Regular Respiration Rate 20 /min Comments: Pattern: Unlabored O2 SAT 87 % Comments: Room air BP Systolic 118 mm[Hg] Comments: Patient Position: Sitting; Cuff Location: Left Arm; Cuff Size: Large BP Diastolic 82 mm[Hg] Comments: Patient Position: Sitting; Cuff Location: Left Arm; Cuff Size: Large Weight 232 lb Height 0 in Head Circumference 0.00 cm :29 Temperature 98.6 f Comments: Method: Undefined Pulse 58 /min Comments: Pattern: Regular Respiration Rate 16 /min Comments: Pattern: Undefined BP Systolic 118 mm[Hg] Comments: Patient Position: Sitting; Cuff Location: Right Arm; Cuff Size: Large BP Diastolic 78 mm[Hg] Comments: Patient Position: Sitting; Cuff Location: Right Arm; Cuff Size: Large Weight 232 lb Height 0 in Head Circumference 0.00 cm :38 Temperature 98.5 f Comments: Method: Undefined Pulse 52 /min Comments: Pattern: Regular Respiration Rate 18 /min Comments: Pattern: Undefined BP Systolic 130 mm[Hg] Comments: Patient Position: Sitting; Cuff Location: Right Arm; Cuff Size: Standard BP Diastolic 90 mm[Hg] Comments: Patient Position: Sitting; Cuff Location: Right Arm; Cuff Size: Standard Weight 232 lb Height 0 in Head Circumference 0.00 cm :43 Temperature 99 f Comments: Method: Undefined Pulse 80 /min Comments: Pattern: Regular Respiration Rate 16 /min Comments: Pattern: Undefined BP Systolic 118 mm[Hg] Comments: Patient Position: Sitting; Cuff Location: Right Arm; Cuff Size: Large BP Diastolic 70 mm[Hg] Comments: Patient Position: Sitting; Cuff Location: Right Arm; Cuff Size: Large Weight 222 lb Height 0 in Head Circumference 0.00 cm :37 Temperature 98.7 f Comments: Method: Oral Pulse 64 /min Comments: Pattern: Regular Respiration Rate 18 /min Comments: Pattern: Unlabored BP Systolic 146 mm[Hg] Comments: Patient Position: Sitting; Cuff Location: Right Arm; Cuff Size: Standard BP Diastolic 90 mm[Hg] Comments: Patient Position: Sitting; Cuff Location: Right Arm; Cuff Size: Standard Weight 223 lb Height 0 in Head Circumference 0.00 cm :49 Temperature 98.1 f Comments: Method: Oral Pulse 76 /min Comments: Pattern: Regular Respiration Rate 16 /min Comments: Pattern: Unlabored BP Systolic 140 mm[Hg] Comments: Patient Position: Sitting; Cuff Location: Right Arm; Cuff Size: Large BP Diastolic 90 mm[Hg] Comments: Patient Position: Sitting; Cuff Location: Right Arm; Cuff Size: Large Weight 222 lb Height 0 in Head Circumference 0.00 cm :53 Temperature 97.9 f Comments: Method: Oral Pulse 76 /min Comments: Pattern: Regular Respiration Rate 16 /min Comments: Pattern: Unlabored BP Systolic 124 mm[Hg] Comments: Patient Position: Sitting; Cuff Location: Right Arm; Cuff Size: Standard BP Diastolic 74 mm[Hg] Comments: Patient Position: Sitting; Cuff Location: Right Arm; Cuff Size: Standard Weight 0 lb Height 0 in Head Circumference 0.00 cm :09 Temperature 99.3 f Comments: Method: Oral Pulse 64 /min Comments: Pattern: Regular Respiration Rate 20 /min Comments: Pattern: Unlabored BP Systolic 140 mm[Hg] Comments: Patient Position: Sitting; Cuff Location: Right Arm; Cuff Size: Standard BP Diastolic 86 mm[Hg] Comments: Patient Position: Sitting; Cuff Location: Right Arm; Cuff Size: Standard Weight 225 lb Height 0 in Head Circumference 0.00 cm :15 Temperature 99 f Comments: Method: Oral Pulse 76 /min Comments: Pattern: Regular Respiration Rate 20 /min Comments: Pattern: Unlabored BP Systolic 116 mm[Hg] Comments: Patient Position: Sitting; Cuff Location: Left Arm; Cuff Size: Large BP Diastolic 86 mm[Hg] Comments: Patient Position: Sitting; Cuff Location: Left Arm; Cuff Size: Large Weight 224 lb Height 70.25 in Body Mass Index Calculated 31.91 kg/m2 Body Surface Area Calculated 2.2 m2 Head Circumference 0.00 cm :41 Temperature 98.8 f Comments: Method: Oral Pulse 68 /min Comments: Pattern: Regular Respiration Rate 16 /min Comments: Pattern: Unlabored BP Systolic 128 mm[Hg] Comments: Patient Position: Sitting; Cuff Location: Left Arm; Cuff Size: Large BP Diastolic 88 mm[Hg] Comments: Patient Position: Sitting; Cuff Location: Left Arm; Cuff Size: Large Weight 223.1875 lb Height 70.25 in Body Mass Index Calculated 31.8 kg/m2 Body Surface Area Calculated 2.19 m2 Head Circumference 0.00 cm Results Date Description Value Details :05 LIPID PANEL ([id number]) Comments: PATIENT WAS FASTINGPERFORMED BY: [facility] [id number] [facility] [id number] LDL/HDL Ratio 1.5 {ratio_units} (Normal) Range: 0.0-3.6 Comments: LDL/HDL Ratio Men Women 1/2 Avg.Risk 1.0 1.5 Av g.Risk 3.6 3.2 2X Avg.Risk 6.2 5.0 3X Avg.Risk 8.0 6.1 LDL Cholesterol Calc 92 mg/dL (Normal) Range: 0-99 VLDL Cholesterol Miguel 22 mg/dL (Normal) Range: 5-40 HDL Cholesterol 60 mg/dL (Normal) Triglycerides 110 mg/dL (Normal) Range: 0-149 Cholesterol, Total 174 mg/dL (Normal) Range: 100-199 [id number] MICROALBUMIN: CREATININE RATIO Comments: PATIENT WAS FASTINGPERFORMED BY: [facility] [id number] ([id number]) AND ([id number]) Microalb/Creat Ratio 12.4 {mg/g_creat} (Normal) Range: 0.0-30.0 Microalbumin, Urine 13.0 ug/mL (Normal) Creatinine, Urine 105.2 mg/dL (Normal) [id number] CBC, PLATELETS & MANUAL DIFF Comments: PATIENT WAS FA[facility]INGPERFORMED BY: [facility] [id number] ([id number]) Immature Grans (Abs) 0.0 {x10E3/uL} (Normal) Range: 0.0-0.1 Immature Granulocytes 0 % (Normal) Baso (Absolute) 0.0 {x10E3/uL} (Normal) Range: 0.0-0.2 Eos (Absolute) 0.2 {x10E3/uL} (Normal) Range: 0.0-0.4 Monocytes(Absolute) 0.5 {x10E3/uL} (Normal) Range: 0.1-0.9 Lymphs (Absolute) 1.7 {x10E3/uL} (Normal) Range: 0.7-3.1 Neutrophils (Absolute) 4.6 {x10E3/uL} (Normal) Range: 1.4-7.0 Basos 0 % (Normal) Eos 3 % (Normal) Monocytes 8 % (Normal) Lymphs 24 % (Normal) Neutrophils 65 % (Normal) Platelets 239 {x10E3/uL} (Normal) Range: 150-379 RDW 14.5 % (Normal) Range: 12.3-15.4 MCHC 33.3 g/dL (Normal) Range: 31.5-35.7 MCH 30.4 pg (Normal) Range: 26.6-33.0 MCV 91 fL (Normal) Range: 79-97 Hematocrit 46.5 % (Normal) Range: 37.5-51.0 Hemoglobin 15.5 g/dL (Normal) Range: 12.6-17.7 RBC 5.10 {x10E6/uL} (Normal) Range: 4.14-5.80 WBC 7.0 {x10E3/uL} (Normal) Range: 3.4-10.8 :05 METABOLIC PANEL, COMPREHENSIVE Comments: PATIENT WAS FASTINGPERFORMED BY: [id number] [facility] [id number] ([id number]) ALT (SGPT) 29 [iU]/L (Normal) Range: 0-44 AST (SGOT) 23 [iU]/L (Normal) Range: 0-40 Alkaline Phosphatase, S 70 [iU]/L (Normal) Range: 39-117 Bilirubin, Total 0.6 mg/dL (Normal) Range: 0.0-1.2 A/G Ratio 1.4 (Normal) Range: 1.2-2.2 Globulin, Total 2.9 g/dL (Normal) Range: 1.5-4.5 Albumin, Serum 4.1 g/dL (Normal) Range: 3.6-4.8 Protein, Total, Serum 7.0 g/dL (Normal) Range: 6.0-8.5 Calcium, Serum 9.3 mg/dL (Normal) Range: 8.6-10.2 Carbon Dioxide, Total 24 mmol/L (Normal) Range: 18-29 Chloride, Serum 99 mmol/L (Normal) Range: 96-106 Potassium, Serum 4.6 mmol/L (Normal) Range: 3.5-5.2 Sodium, Serum 142 mmol/L (Normal) Range: 134-144 BUN/Creatinine Ratio 18 (Normal) Range: 10-24 eGFR If Africn Am 75 mL/min/1.73 (Normal) eGFR If NonAfricn Am 65 mL/min/1.73 (Normal) Creatinine, Serum 1.19 mg/dL (Normal) Range: 0.76-1.27 BUN 21 mg/dL (Normal) Range: 8-27 Glucose, Serum 84 mg/dL (Normal) Range: 65-99 [id number] Cytology, Body Fluid / CSF Comments: Specimen Source: [facility] [id number] [place], [place], [id number] CYTOLOGY,BF/CSF SEE PATHOLOGY REPORT Comments: Specimen submitted to Anatomical Pathology Department [facility]. (Normal) [id number] CYTOSPIN ON FLUID See Note (Normal) Comments: [facility] [id number] [place], [address] Comments: Patient: GONZÁLEZ PETTIT : 1955 (61/M) Acct Num: [id number] Phys: Antwan BALTAZAR,Heath Matta Unit Num: [id number] Loc: LAB[facility] Specimen: [id number] Received: 03/11/17 - 810 Spec Ty pe: CYSPIN FL TISSUES TISSUES: CYTOLOGY GROSS Received is 80 ml of dark gold cloudy fluid labeled with the patient's name and and designated per the requisition as urine. Submi tted for cytology preparation. 03/11/17 TC:5 CPT: 03937 CYTOLOGY STUDY Slides are reviewed. DIAGNOSIS CYTOLOGY Urine for cytology (cytospin): Negative for malignant cells. Cr ystalline debris present. 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 THE SURGICALMARGIN IS INKED BLUE. THE SPECIMEN IS B ISECTED. IT IS SUBMITTEDENTIRELY IN CASSETTE(S) A1. THERE ARE 2 PIECES TOTAL. ALSO RECEIVED IS1 SHAVE BIOPSY OF JOSHI SKIN MEASURING 0.6 X 0.2 X 0.1 CM. THESURGICAL MARGIN IS INKED BLACK. THE SPECIMEN I S SUBMITTED INTACT. ITIS SUBMITTED ENTIRELY IN CASSETTE(S) A2./XJWXJW/XJWPathologist provided ICD-10:C44.310CPT .050931 35-Olo-863704:13 NATO CULTURE-OTHER (84074) Comments: PATIENT NOT FASTINGPERFORMED BY: [facility] Uqroze0863 [facility] [id number] Information: THROAT SRC:TH Result 1 RRF (Normal) Comments: Routine respiratory you Upper Respiratory Culture Final report (Normal) 05-Bke-150643:21 Rapid Strep Test, Office (12516) Rapid Strep Test, Positive (Normal) Office [id number]: CYTOSPIN ON FLUID See Note (Normal) Comments: [facility] Rtydxpvjti4873 [facility]. 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 C ase has been reviewed in consultation with Dr. Wright who concurs with the abovediagnosis. IDC:[id number] CYTOLOGY GROSS Received is 60 ml of clear yellow fluid labeled with the patient's name and and designated per the requisition as urine. Submitted for cytology preparation. 07/09/16 TC:5 CPT: 77830 CYTOLOGY STUDY Slides are reviewed. DIAGNOSIS CYTOLOGY Urine for cytology (cyto spin): Rare atypical cells present. AM:berna 07/10/16 HEADER OPERATION: Not noted PRE-OP DIAGNOSIS: History bladder CA TISSUE SUBMITTED: Urine for cytology Signed Jamaal [facility] 07/12/16 <signature on file> : [facility] Comments: Specimen Source: URINE 15 (Normal) Comments: Specimen submitted to Anatomical Pathology Department fortesting. 88-Hbe-28756:0 CYSPIN (Normal) Comments: Patient: GONZÁLEZ PETTIT : 1955 (58/M)Acct Num: [id number] Phys: Heath Fernandes MD Num: [id number] Loc: LABSPECSpecimen: [id number] Received: 07/26/1441Spec Type: CYSPIN F 0 LTISSUESTISSUES:CULTURE RESULTSNo results available.CYTOLOGY GROSSReceived is 75 ml of yellow clear fluid designated urine. Submitted forcytology preparation. / ERIC:catie 07/26/14 TC:5CPT: 84600RRUSWM GY STUDYThe specimen primarily contains acute inflammatory cells and proteinaceousdebris. Clinical correlation is suggested.DIAGNOSIS CYTOLOGYUrine for cytology (cytospin):Negative for malignant cells. AM:catie 07/27/14HEADEROPERATION: Not notedPRE-OPERATIVE DIAGNOSIS: 188.9 Malignant neoplasm of bladderTISSUE SUBMITTED: Urine cytologySigned Jamaal [facility] 07/27/14<signature on file> 71-Rim-770518:52 Throat Culture (38288) Comments: PATIENT NOT FASTINGPERFORMED BY: [employer] Kibyhe4452 [facility] [id number] Information: SRC:THRT [id number] Result 1 BETAGC (Abnormal) Comments: Beta hemolytic Streptococcus, group CScant growthPenicillin and ampicillin are drugs of choice for treatment ofbeta- hemolytic streptococcal infections. Susceptibility testing ofpenicillins and other bet a-lactam agents approved by the FDA fortreatment of beta-hemolytic streptococcal infections need not beperformed routinely because nonsusceptible isolates are extremelyrare in any beta-hemolytic strepto coccus and have not been reportedfor Streptococcus pyogenes (group A). (CLSI 2011)Routine respiratory floraHeavy growth Upper Respiratory Culture Final report (Abnormal) 71-Qco-651455:52 Influenza A&B Viral Comments: PATIENT NOT FASTINGPERFORMED BY: [employer] Mmvbjm9513 [facility] [id number] Information: SRC:NOS [id number] Culture (22854) Viral Culture,Rapid,Influenza FLUABN (Normal) Comments: Negative:No Influenza A or B detected. :20 Rapid Flu (26673 x 2) Influenza A Ag n (Normal) :20 Rapid Strep Test, Office (67187) Rapid Strep Test, Office Negative (Normal) :42 CBC WITH MANUAL DIFF Comments: PATIENT WAS FASTINGPERFORMED BY: [facility] Awxmne9582 [facility] [id number] Information: [id number] (33648) Immature Grans (Abs) 0.0 {x10E3/uL} (Normal) Range: 0.0-0.1 Immature Granulocytes 0 % (Normal) Baso (Absolute) 0.0 {x10E3/uL} (Normal) Range: 0.0-0.2 Eos (Absolute) 0.3 {x10E3/uL} (Normal) Range: 0.0-0.4 Monocytes(Absolute) 0.7 {x10E3/uL} (Normal) Range: 0.1-0.9 Lymphs (Absolute) 1.3 {x10E3/uL} (Normal) Range: 0.7-3.1 Neutrophils (Absolute) 4.5 {x10E3/uL} (Normal) Range: 1.4-7.0 Basos 0 % (Normal) Eos 4 % (Normal) Monocytes 10 % (Normal) Lymphs 20 % (Normal) Neutrophils 66 % (Normal) Platelets 206 {x10E3/uL} (Normal) Range: 150-379 RDW 14.5 % (Normal) Range: 12.3-15.4 MCHC 33.6 g/dL (Normal) Range: 31.5-35.7 MCH 30.4 pg (Normal) Range: 26.6-33.0 MCV 90 fL (Normal) Range: 79-97 Hematocrit 45.5 % (Normal) Range: 37.5-51.0 Hemoglobin 15.3 g/dL (Normal) Range: 12.6-17.7 RBC 5.04 {x10E6/uL} (Normal) Range: 4.14-5.80 WBC 6.8 {x10E3/uL} (Normal) Range: 3.4-10.8 :42 PSA (PROSTATE SPECIFIC Comments: PATIENT WAS FASTINGPERFORMED BY: [facility] [id number] ANTIGEN) (V76.44) Prostate Specific Ag, 2.6 ng/mL (Normal) Range: 0.0-4.0 Serum Comments: [employer] ECLIA methodology. .According to the [employer], Serum PSA shoulddecrease and remain at undetectable levels after radicalprostatectomy. The AUA defines biochemical recurrence as an initialPSA value 0.2 ng/mL or greater followed by a subsequent confirmatoryPSA value 0.2 ng/mL or greater.Values obtained with d ifferent assay methods or kits cannot be usedinterchangeably. Results cannot be interpreted as absolute evidenceof the presence or absence of malignant disease. :42 METABOLIC PANEL, COMPREHENSIVE Comments: PATIENT WAS FASTINGPERFORMED BY: [employer]6370 [facility] [id number] (85151) ALT (SGPT) 16 [iU]/L (Normal) Range: 0-44 AST (SGOT) 14 [iU]/L (Normal) Range: 0-40 Alkaline Phosphatase, S 86 [iU]/L (Normal) Range: 39-117 Bilirubin, Total 0.7 mg/dL (Normal) Range: 0.0-1.2 A/G Ratio 1.6 (Normal) Range: 1.1-2.5 Globulin, Total 2.7 g/dL (Normal) Range: 1.5-4.5 Albumin, Serum 4.4 g/dL (Normal) Range: 3.5-5.5 Protein, Total, Serum 7.1 g/dL (Normal) Range: 6.0-8.5 Calcium, Serum 9.3 mg/dL (Normal) Range: 8.7-10.2 Carbon Dioxide, Total 26 mmol/L (Normal) Range: 18-29 Chloride, Serum 97 mmol/L (Normal) Range: 97-108 Potassium, Serum 4.7 mmol/L (Normal) Range: 3.5-5.2 Sodium, Serum 138 mmol/L (Normal) Range: 134-144 BUN/Creatinine Ratio 13 (Normal) Range: 9-20 eGFR If Africn Am 75 mL/min/1.73 (Normal) eGFR If NonAfricn Am 64 mL/min/1.73 (Normal) Creatinine, Serum 1.22 mg/dL (Normal) Range: 0.76-1.27 BUN 16 mg/dL (Normal) Range: 6-24 Glucose, Serum 87 mg/dL (Normal) Range: 65-99 16-Aug-20149:42 LIPID PANEL (66551) Comments: PATIENT WAS FASTINGPERFORMED BY: [facility]CoH[facility]stown [facility] CenterBuraqj4607 [facility] [id number]; apt today LDL/HDL Ratio 2.4 {ratio_units} (Normal) Range: 0.0-3.6 Comments: LDL/HDL Ratio Men Women 1/2 Avg.Risk 1.0 1.5 Av g.Risk 3.6 3.2 2X Avg.Risk 6.2 5.0 3X Avg.Risk 8.0 6.1 LDL Cholesterol Calc 114 mg/dL (Abnormal) Range: 0-99 VLDL Cholesterol Miguel 21 mg/dL (Normal) Range: 5-40 HDL Cholesterol 47 mg/dL (Normal) Comments: According to ATP-III Guidelines, HDL-C >59 mg/dL is considered anegative risk factor for CHD. Triglycerides 105 mg/dL (Normal) Range: 0-149 Cholesterol, Total 182 mg/dL (Normal) Range: 100-199 :42 CBC WITH MANUAL DIFF Comments: PATIENT NOT FASTINGPERFORMED BY: [facility]CoHackettstown Medical CenterZijlpi1911 [facility] [id number] Information: [id number] (06579) Immature Grans (Abs) 0.0 {x10E3/uL} (Normal) Range: 0.0-0.1 Immature Granulocytes 0 % (Normal) Range: 0-2 Baso (Absolute) 0.0 {x10E3/uL} (Normal) Range: 0.0-0.2 Eos (Absolute) 0.3 {x10E3/uL} (Normal) Range: 0.0-0.4 Monocytes(Absolute) 0.4 {x10E3/uL} (Normal) Range: 0.1-0.9 Lymphs (Absolute) 1.4 {x10E3/uL} (Normal) Range: 0.7-3.1 Neutrophils (Absolute) 3.9 {x10E3/uL} (Normal) Range: 1.4-7.0 Basos 1 % (Normal) Range: 0-3 Eos 5 % (Normal) Range: 0-5 Monocytes 7 % (Normal) Range: 4-12 Lymphs 24 % (Normal) Range: 14-46 Neutrophils 63 % (Normal) Range: 40-74 Platelets 240 {x10E3/uL} (Normal) Range: 155-379 RDW 14.6 % (Normal) Range: 12.3-15.4 MCHC 33.4 g/dL (Normal) Range: 31.5-35.7 MCH 30.5 pg (Normal) Range: 26.6-33.0 MCV 91 fL (Normal) Range: 79-97 Hematocrit 45.8 % (Normal) Range: 37.5-51.0 Hemoglobin 15.3 g/dL (Normal) Range: 12.6-17.7 RBC 5.01 {x10E6/uL} (Normal) Range: 4.14-5.80 WBC 6.1 {x10E3/uL} (Normal) Range: 3.4-10.8 :42 METABOLIC PANEL, COMPREHENSIVE Comments: PATIENT NOT FASTINGPERFORMED BY: SRIRAM [employer] Pyofyk2765 [facility] [id number] (74303) ALT (SGPT) 24 [iU]/L (Normal) Range: 0-44 AST (SGOT) 22 [iU]/L (Normal) Range: 0-40 Alkaline Phosphatase, S 77 [iU]/L (Normal) Range: 39-117 Bilirubin, Total 0.6 mg/dL (Normal) Range: 0.0-1.2 A/G Ratio 1.5 (Normal) Range: 1.1-2.5 Albumin, Serum 4.3 g/dL (Normal) Range: 3.5-5.5 Globulin, Total 2.9 g/dL (Normal) Range: 1.5-4.5 Protein, Total, Serum 7.2 g/dL (Normal) Range: 6.0-8.5 Calcium, Serum 9.4 mg/dL (Normal) Range: 8.7-10.2 Carbon Dioxide, Total 27 mmol/L (Normal) Range: 19-28 Chloride, Serum 102 mmol/L (Normal) Range: 97-108 Potassium, Serum 4.7 mmol/L (Normal) Range: 3.5-5.2 Sodium, Serum 140 mmol/L (Normal) Range: 134-144 BUN/Creatinine Ratio 16 (Normal) Range: 9-20 eGFR If Africn Am 77 mL/min/1.73 (Normal) eGFR If NonAfricn Am 66 mL/min/1.73 (Normal) Creatinine, Serum 1.19 mg/dL (Normal) Range: 0.76-1.27 BUN 19 mg/dL (Normal) Range: 6-24 Glucose, Serum 83 mg/dL (Normal) Range: 65-99 :42 LIPID PANEL (59813) Comments: PATIENT NOT FASTINGPERFORMED BY: [employer] Raeqfd4922 [facility] [id number]; non- urgent...will review at 04-05-14 appt LDL/HDL Ratio 2.1 {ratio_units} (Normal) Range: 0.0-3.6 LDL Cholesterol Calc 114 mg/dL (Abnormal) Range: 0-99 VLDL Cholesterol Miguel 21 mg/dL (Normal) Range: 5-40 HDL Cholesterol 55 mg/dL (Normal) Comments: According to ATP-III Guidelines, HDL-C >59 mg/dL is considered anegative risk factor for CHD. Cholesterol, Total 190 mg/dL (Normal) Range: 100-199 Triglycerides 104 mg/dL (Normal) Range: 0-149 55-Ujg-743059:38 Prostate-Specific Ag, Serum Comments: PATIENT NOT FASTINGPERFORMED BY: Visualnest70 [facility] [id number] BY: EidoSearch[address] [id number] Prostate Specific Ag, 2.3 ng/mL (Normal) Range: 0.0-4.0 Serum Comments: [employer] ABIA methodology. .According to the [employer], Serum PSA shoulddecrease and remain at undetectable levels after radicalprostatectomy. The AUA defines biochemical recurrence as an initialPSA value 0.2 ng/mL or greater followed by a subsequent confirmatoryPSA value 0.2 ng/mL or greater.Values obtained with d ifferent assay methods or kits cannot be usedinterchangeably. Results cannot be interpreted as absolute evidenceof the presence or absence of malignant disease. :38 Testosterone, Free/Tot Comments: PATIENT NOT FASTINGPERFORMED BY: Visualnest[address] [place] [address] [id number] BY: EidoSearch[address] [id number] Equilib % Free Testosterone 1.66 % (Normal) Range: 1.50-4.20 Testosterone,Free 5.79 ng/dL (Normal) Range: 5.00-21.00 Testosterone, Serum 349 ng/dL (Normal) Range: 348-1197 42-Dnx-952246:13 Urinalysis, Office (17563) UA - BILIRUBIN Negative (Normal) UA - BLOOD Non Hemolyzed Trace (Normal) UA - GLUCOSE Negative (Normal) UA - KETONES Negative mg/dL (Normal) UA - LEUKOCYTE ESTERASE Negative (Normal) UA - NITRITE Negative (Normal) UA - PH 7.0 (Normal) UA - PROTEIN Negative mg/dL (Normal) UA - SPECIFIC GRAVITY 1.020 (Normal) URINE UROBILINGN DONALDO TIMED Normal mg/dL (Normal) :38 CBC WITH MANUAL DIFF Comments: PATIENT WAS FASTINGPERFORMED BY: SRIRAM EidoSearchHackettstown Medical CenterEaoibb2651 [facility] [id number] Information: [id number] (07898) Immature Grans (Abs) 0.0 {x10E3/uL} (Normal) Range: 0.0-0.1 Immature Granulocytes 0 % (Normal) Range: 0-2 Baso (Absolute) 0.0 {x10E3/uL} (Normal) Range: 0.0-0.2 Eos (Absolute) 0.3 {x10E3/uL} (Normal) Range: 0.0-0.4 Lymphs (Absolute) 1.3 {x10E3/uL} (Normal) Range: 0.7-3.1 Monocytes(Absolute) 0.6 {x10E3/uL} (Normal) Range: 0.1-0.9 Neutrophils (Absolute) 4.2 {x10E3/uL} (Normal) Range: 1.4-7.0 Basos 1 % (Normal) Range: 0-3 Eos 4 % (Normal) Range: 0-5 Monocytes 10 % (Normal) Range: 4-12 Lymphs 20 % (Normal) Range: 14-46 Neutrophils 65 % (Normal) Range: 40-74 Platelets 237 {x10E3/uL} (Normal) Range: 155-379 RDW 14.2 % (Normal) Range: 12.3-15.4 MCHC 34.1 g/dL (Normal) Range: 31.5-35.7 MCH 30.3 pg (Normal) Range: 26.6-33.0 MCV 89 fL (Normal) Range: 79-97 Hematocrit 46.0 % (Normal) Range: 37.5-51.0 Hemoglobin 15.7 g/dL (Normal) Range: 12.6-17.7 RBC 5.18 {x10E6/uL} (Normal) Range: 4.14-5.80 WBC 6.5 {x10E3/uL} (Normal) Range: 3.4-10.8 :38 METABOLIC PANEL, COMPREHENSIVE Comments: PATIENT WAS FASTINGPERFORMED BY: EidoSearchHackettstown Medical CenterCxbyud2754 [facility] [id number] (47608) ALT (SGPT) 21 [iU]/L (Normal) Range: 0-44 AST (SGOT) 23 [iU]/L (Normal) Range: 0-40 Alkaline Phosphatase, S 73 [iU]/L (Normal) Range: 39-117 Bilirubin, Total 0.7 mg/dL (Normal) Range: 0.0-1.2 A/G Ratio 1.5 (Normal) Range: 1.1-2.5 Globulin, Total 2.8 g/dL (Normal) Range: 1.5-4.5 Albumin, Serum 4.2 g/dL (Normal) Range: 3.5-5.5 Protein, Total, Serum 7.0 g/dL (Normal) Range: 6.0-8.5 Calcium, Serum 9.2 mg/dL (Normal) Range: 8.7-10.2 Carbon Dioxide, Total 25 mmol/L (Normal) Range: 19-28 Chloride, Serum 104 mmol/L (Normal) Range: 97-108 Potassium, Serum 4.3 mmol/L (Normal) Range: 3.5-5.2 Sodium, Serum 141 mmol/L (Normal) Range: 134-144 BUN/Creatinine Ratio 16 (Normal) Range: 9-20 eGFR If Africn Am 78 mL/min/1.73 (Normal) eGFR If NonAfricn Am 68 mL/min/1.73 (Normal) Creatinine, Serum 1.18 mg/dL (Normal) Range: 0.76-1.27 BUN 19 mg/dL (Normal) Range: 6-24 Glucose, Serum 90 mg/dL (Normal) Range: 65-99 20-Aug-20138:38 LIPID PANEL (03910) Comments: PATIENT WAS FASTINGPERFORMED BY: SRIRAM [facility] Sdtaef6392 [facility] [id number] LDL/HDL Ratio 2.2 {ratio_units} (Normal) Range: 0.0-3.6 LDL Cholesterol Calc 123 mg/dL (Abnormal) Range: 0-99 HDL Cholesterol 55 mg/dL (Normal) Comments: According to ATP-III Guidelines, HDL-C >59 mg/dL is considered anegative risk factor for CHD. VLDL Cholesterol Miguel 15 mg/dL (Normal) Range: 5-40 Cholesterol, Total 193 mg/dL (Normal) Range: 100-199 Triglycerides 75 mg/dL (Normal) Range: 0-149 :55 Lipid Panel (25175) Comments: PATIENT WAS FASTINGPERFORMED BY: [employer] Spinelin6370 [facility] [id number] BY: EidoSearch[address] [id number] LDL/HDL Ratio 2.7 {ratio_units} (Normal) Range: 0.0-3.6 HDL Cholesterol 52 mg/dL (Normal) Comments: According to ATP-III Guidelines, HDL-C >59 mg/dL is considered anegative risk factor for CHD. LDL Cholesterol Calc 139 mg/dL (Abnormal) Range: 0-99 Triglycerides 100 mg/dL (Normal) Range: 0-149 VLDL Cholesterol Miguel 20 mg/dL (Normal) Range: 5-40 Cholesterol, Total 211 mg/dL (Abnormal) Range: 100-199 :55 Metabolic Panel, Comments: PATIENT WAS FASTINGPERFORMED BY: Coworks6370 [facility] [id number] BY: EidoSearch[address] [id number] Comprehensive (89631) Alkaline Phosphatase, S 75 [iU]/L (Normal) Range: 44-102 ALT (SGPT) 17 [iU]/L (Normal) Range: 0-44 AST (SGOT) 17 [iU]/L (Normal) Range: 0-40 Bilirubin, Total 0.6 mg/dL (Normal) Range: 0.0-1.2 A/G Ratio 1.7 (Normal) Range: 1.1-2.5 Globulin, Total 2.6 g/dL (Normal) Range: 1.5-4.5 Albumin, Serum 4.3 g/dL (Normal) Range: 3.5-5.5 Protein, Total, Serum 6.9 g/dL (Normal) Range: 6.0-8.5 Calcium, Serum 8.9 mg/dL (Normal) Range: 8.7-10.2 Carbon Dioxide, Total 23 mmol/L (Normal) Range: 19-28 Chloride, Serum 103 mmol/L (Normal) Range: 97-108 Potassium, Serum 4.2 mmol/L (Normal) Range: 3.5-5.2 Sodium, Serum 138 mmol/L (Normal) Range: 134-144 BUN/Creatinine Ratio 18 (Normal) Range: 9-20 eGFR If Africn Am 77 mL/min/1.73 (Normal) Creatinine, Serum 1.19 mg/dL (Normal) Range: 0.76-1.27 eGFR If NonAfricn Am 67 mL/min/1.73 (Normal) BUN 21 mg/dL (Normal) Range: 6-24 Glucose, Serum 97 mg/dL (Normal) Range: 65-99 83-Zqu-93947:55 CBC with manual diff Comments: PATIENT WAS FASTINGPERFORMED BY: CB [facility] Asvfav0521 [facility] [id number] BY: BN [facility] Upwjxkfsto6495 [facility] [id number] Inf ormation: ADD [id number] AND DRAW FEE 99 8284 (66415) Immature Grans (Abs) 0.0 {x10E3/uL} (Normal) Range: 0.0-0.1 Immature Granulocytes 0 % (Normal) Range: 0-2 Baso (Absolute) 0.1 {x10E3/uL} (Normal) Range: 0.0-0.2 Eos (Absolute) 0.2 {x10E3/uL} (Normal) Range: 0.0-0.4 Monocytes(Absolute) 0.5 {x10E3/uL} (Normal) Range: 0.1-0.9 Lymphs (Absolute) 1.3 {x10E3/uL} (Normal) Range: 0.7-3.1 Neutrophils (Absolute) 4.1 {x10E3/uL} (Normal) Range: 1.4-7.0 Basos 1 % (Normal) Range: 0-3 Eos 4 % (Normal) Range: 0-5 Monocytes 8 % (Normal) Range: 4-12 Lymphs 21 % (Normal) Range: 14-46 Neutrophils 66 % (Normal) Range: 40-74 Platelets 227 {x10E3/uL} (Normal) Range: 155-379 RDW 14.6 % (Normal) Range: 12.3-15.4 MCHC 34.1 g/dL (Normal) Range: 31.5-35.7 MCH 31.0 pg (Normal) Range: 26.6-33.0 MCV 91 fL (Normal) Range: 79-97 Hematocrit 45.5 % (Normal) Range: 37.5-51.0 Hemoglobin 15.5 g/dL (Normal) Range: 12.6-17.7 RBC 5.00 {x10E6/uL} (Normal) Range: 4.14-5.80 WBC 6.1 {x10E3/uL} (Normal) Range: 3.4-10.8 :55 TESTOSTERONE FREE (31304) Comments: PATIENT WAS FASTINGPERFORMED BY: CB [facility] Clznwm9506 [facility] [id number] BY: BN [facility] Ueohpkcqac6897 [facility] [id number] Free Testosterone(Direct) 8.4 pg/mL (Normal) Range: 7.2-24.0 :27 CBCMD ANC 4.8 3/uL (Normal) Range: 2.0-7.7 IG# 0.010 3/ul (Abnormal) Range: 0.0-0.0 IG% 0.10 % (Abnormal) Range: 0.0-0.0 B% 0.3 % (Normal) Range: 0-1 E% 2.6 % (Normal) Range: 0-5 M% 8.8 % (Normal) Range: 0-10 L% 18.8 % (Abnormal) Range: 19-41 N% 69.4 % (Normal) Range: 47-70 MPV 9.3 fL (Normal) Range: 6.2-12.0 PLT 201 K/mm3 (Normal) Range: 150-450 RDWSD 47.0 fL (Abnormal) Range: 35.1-43.9 RDWCV 13.9 % (Normal) Range: 11.6-14.6 MCHC 33.1 g/dL (Normal) Range: 32-36 MCH 30.5 pg (Normal) Range: 27.0-32.0 MCV 92.3 fL (Normal) Range: 80-94 HCT 44.1 % (Normal) Range: 40-54 HGB 14.6 g/dL (Normal) Range: 13.0-16.5 RBC 4.78 {M/mm3} (Normal) Range: 4.6-6.2 WBC 6.9 {k/mm3} (Normal) Range: 4.4-11.0 :27 CMP GAP 5 (Normal) Range: 5-15 CO2 30.0 mmol/L (Normal) Range: 21.0-32.0 CL 104 mmol/L (Normal) Range: 98-107 K 4.2 mmol/L (Normal) Range: 3.5-5.1 NA 139 mmol/L (Normal) Range: 136-145 BIT 0.50 mg/dL (Normal) Range: 0.00-1.00 ALT 23 U/L (Normal) Range: 12-78 ALK 63 U/L (Normal) Range: 50-136 AST 15 U/L (Normal) Range: 15-37 CA 9.2 mg/dL (Normal) Range: 8.5-10.1 AG 0.9 {RATIO} (Normal) Range: 0.9-2.4 GLOB 3.9 g/dL (Normal) Range: 2.7-4.2 ALB 3.6 g/dL (Normal) Range: 3.4-5.0 TPROT 7.5 g/dL (Normal) Range: 6.4-8.2 BC 15.5 {RATIO} (Normal) Range: 10-20 GFRAA 88 mL/min (Normal) GFR 73 mL/min (Normal) CREAT 1.1 mg/dL (Normal) Range: 0.8-1.3 BUN 17 mg/dL (Normal) Range: 7-18 GLU 88 mg/dL (Normal) Range: 70-110 :27 LIPID VLDL 14 mg/dL (Normal) Range: 5-40 LDL 100 mg/dL (Normal) Range: 0-130 HDL 46 mg/dL (Normal) Comments: Reference Range HDL <40 mg/dL Low HDL Cholesterol HDL >or= 60 mg/dL High HDL Cholesterol TRIG 71 mg/dL (Normal) Comments: Serum Triglycerides Reference Interval Normal <150 mg/dL Borderline high 150 - 199 mg/dL High 200 - 499 mg/dL Very High > or = 500 mg/dL CHOL 160 mg/dL (Normal) Comments: <200 mg/dL Desirable 200-240 mg/dL Borderline >240 mg/dL High Risk :27 PSA 2.75 ng/mL (Normal) Range: 0.00-4.00 : TSH 1.89 {uIU/mL} (Normal) Range: 0.358-3.74 :27 [facility] UMUC 0 SEEN {/hpf} (Normal) UBAC 1+ {/hpf} (Normal) UEPIS 0-5 SEEN {/hpf} (Normal) Range: 0-5 URBC 0 SEEN {/hpf} (Normal) Range: 0-5 UWBC 0-5 SEEN {/hpf} (Normal) Range: 0-5 LEXII Negative /ul (Normal) UOB Negative /ul (Normal) ALPHONSO Negative (Normal) UROBU Normal mg/dL (Normal) uPROTU Negative mg/dL (Normal) TOM 7 (Normal) Range: 5.0 - 8.0 SGU 1.015 (Normal) Range: 1.002-1.030 KETU Negative mg/dL (Normal) BILIU Negative mg/dL (Normal) GLUR Normal mg/dL (Normal) UCLAR Clear (Normal) UCOL Yellow (Normal) :52 CHEST WITHOUT CONTRAST Radiology Report See Note (Normal) Comments: PROCEDURE: CT CHEST WITHOUT CONTRAST REASON FOR EXAM: Male, 56 years old. Follow-up of pulmonary nodule. RADIATION DOSAGE (If Supplied By Facility): CTDIvol = ( 20 ) mGy, DLP =(779 ) m Gycm TECHNIQ UE: High resolution transaxial imaging was performed without theadministration of intravenous contrast material. Multiplanar coronal andsagittal images were reformatted. COMPARISON: Comparison is m gabino with prior study dated October 18, 2011. FINDINGS: There is elevation of the right hemidiaphragm. The previously seen rightlower lobe infiltrate has cleared. There is there is evidence of a smalll eft pleural effusion although this has improved since prior study.Thereis a mild degree of scarring and possible compressive atelectasis at theleft lung base. There is a stable 8mm nodule in the periph eral aspect ofthe left lower lobe on image number 75. Is also evidence of a [id number] nodule in the left lower lobe on image number 82. Normal heart and pericardium. Normal mediastinum. Normal hil ar regions. Normal unenhanced pulmonaryarteries. 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 Note is once again mad e of bilateral healed rib fractures. Moderate-sized hiatal hernia. IMPRESSION:Stable noncalcified nodules in the left lower lobe.The right pleural effusion in the right basilar infiltrate have cleared.A small left pleural effusion persist with underlying atelectasis. Signed:Dilip Rutledge M.D.September 01, 2012 at 2:59:05 PM [id number] Signed GP/GP If you are the referring physic adela and would like to consult with theradiologist who provided this interpretation, please contact Chuck Yo at [phone]. If this radiologist is unavailable, youwill be directed to [facility] ther radiologist to assist. If you are a patient with a question regarding this report, pleasecontactyour referring physician directly. Professional Interpretation Provided By: [employer], Phone , These documents contain legally protected and confidential healthinformation intended only for the use of the individual or entity namedabove. If you are not the intended recip ient, you are hereby notifiedthatany disclosure, copying, distribution, or other use of these documents isstrictly prohibited. If you have received this information in error,pleasenotify the sender imme diately and arrange for the return or destructionofthese documents. Dictated on 09/01/12 0758 by Arthur Rutledge MDranscribed on 09/01/12 151 by ITS IMPORTSign by Dilip Rutledge MD on 09/01 1512 Sign by: Dilip Rutledge MD [id number]:55 Rapid Flu (16760 x 2) Influenza A Ag negative (Normal) [id number] CBCMD RBCM NORM C+C {NORMAL} (Normal) PE ADEQUATE (Normal) BAS 1 % (Normal) Range: 0-1 EOS 4 % (Normal) Range: 0-5 MON 9 % (Normal) Range: 0-10 LYMPH 19 % (Normal) Range: 19-41 PMN 67 % (Normal) Range: 47-70 TISHA 100 (Normal) ANC 3.6 3/uL (Normal) Range: 2.0-7.7 PLT 232 K/mm3 (Normal) Range: 150-450 RDW 14.8 % (Abnormal) Range: 11.6-14.6 MCHC 34.1 g/dL (Normal) Range: 32-36 MCH 31.1 pg (Normal) Range: 27.0-32.0 MCV 91.3 fL (Normal) Range: 80-94 HCT 43.2 % (Normal) Range: 40-54 HGB 14.7 g/dL (Normal) Range: 14.0-18.0 RBC 4.73 {M/mm3} (Normal) Range: 4.6-6.2 WBC 5.6 K/mm3 (Normal) Range: 4.4-11.0 :11 CMP GAP 4 (Abnormal) Range: 5-15 CO2 32.0 mmol/L (Normal) Range: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 0-5 Comments: Result: 0-5 SEEN UROBILI 0.2 EU/dl (Normal) Range: 0.2 - 1.0 WBC 0 SEEN {/hpf} (Normal) Range: 0-5 :22 PFLIP CHOL 182 mg/dL (Normal) Comments: <200 mg/dL Desirable 200-240 mg/dL Borderline >240 mg/dL High Risk HDL 41 mg/dL (Normal) Comments: Reference Range HDL <40 mg/dL Low HDL Cholesterol HDL >or= 60 mg/dL High HDL Cholesterol LDL 115 mg/dL (Normal) Range: 0-130 TRIG 132 mg/dL (Normal) Comments: Serum Triglycerides Reference Interval Normal <150 mg/dL Borderline high 150 - 199 mg/dL High 200 - 499 mg/dL Very High > or = 500 mg/dL VLDL 26 mg/dL (Normal) Range: 5-40 :22 TSH 2.27 {uIU/mL} (Normal) Range: 0.34-4.82 Plan of Care Name Dates Details Instructions Elevated blood pressure reading : Follow up if no improvement or if symptoms worsen Indication: Elevated blood pressure reading Low back pain : Low Back Pain Exercises *: low back Indication: Low back pain Low back pain : Low Back Pain: Brief Version *: low back pain Indication: Low back pain Nonsmoker : Eprescribed prescriptions (G8553) Indication: Nonsmoker Tick bite : Follow up if no improvement or if symptoms worsen Indication: Tick bite Tick bite : Insect Bites and Stings: tick bite Indication: Tick bite Tick bite : Eprescribed prescriptions (G8553) Indication: Tick bite Nonsmoker : Follow up if no improvement or if symptoms worsen Indication: Nonsmoker Acute conjunctivitis (Renamed from Conjunctivitis, acute) : *Conjunctivitis Education Indication: Acute conjunctivitis (Renamed from Conjunctivitis, acute) Itchy, watery, and red eye : Eprescribed prescriptions (G8553) Indication: Itchy, watery, and red eye Dysthymic disorder : Continue Current Prescription(s) Indication: Dysthymic disorder Dysthymic disorder : Reviewed Form Carpenter Letter Indication: Dysthymic disorder Nonsmoker : Eprescribed prescriptions (G8553) Indication: Nonsmoker Essential hypertension : BP MONITORING - SELF Indication: Essential hypertension Essential hypertension : Diet, Exercise, and Wt loss Indication: Essential hypertension Essential hypertension : HTN/CAD Red Flags Indication: Essential hypertension Coronary artery disease, non-occlusive : Reviewed Lab Indication: Coronary artery disease, non-occlusive Inflamed skin tag : Skin Tags Indication: Inflamed skin tag Skin lesion : Shave Biopsy with Epi Indication: Skin lesion Nonsmoker : Eprescribed prescriptions (G8553) Indication: Nonsmoker Pharyngitis, unspecified etiology : Follow up - Make appt after diagnostic tests Indication: Pharyngitis, unspecified etiology Pharyngitis, unspecified etiology : Sore throat: diagnosis and treatment Indication: Pharyngitis, unspecified etiology Wheeze : *URI Symptoms Indication: Wheeze Wheeze : *Antibiotic Usage Education - Male Indication: Wheeze Essential hypertension : Follow up in 6 months Indication: Essential hypertension Other hyperlipidemia : Cholesterol mgmt Indication: Other hyperlipidemia Essential hypertension : Diet, Exercise, and Wt loss Indication: Essential hypertension Essential hypertension : HTN/CAD Red Flags Indication: Essential hypertension Bladder cancer : Reviewed Form Carpenter Letter Indication: Bladder cancer Nonsmoker : Eprescribed prescriptions (G8553) Indication: Nonsmoker Nonsmoker : *URI Treatment Indication: Nonsmoker Nonsmoker : *URI Symptoms Indication: Nonsmoker Nonsmoker : *Antibiotic Usage Education - Male Indication: Nonsmoker Cough : Eprescribed prescriptions (G8553) Indication: Cough Allergic rhinitis due to other allergen : Follow up if no improvement or if symptoms worsen Indication: Allergic rhinitis due to other allergen Allergic rhinitis due to other allergen : Eprescribed prescriptions (G8553) Indication: Allergic rhinitis due to other allergen Allergic rhinitis due to other allergen : Follow up if no improvement or if symptoms worsen Indication: Allergic rhinitis due to other allergen Allergic rhinitis due to other allergen : Allergy proofing Indication: Allergic rhinitis due to other allergen Allergic rhinitis due to other allergen : Allergy control Indication: Allergic rhinitis due to other allergen Allergic rhinitis due to other allergen : *URI Symptoms Indication: Allergic rhinitis due to other allergen Cough : Eprescribed prescriptions (G8553) Indication: Cough Essential hypertension : Flu (Influenza) *: flu Indication: Essential hypertension Essential hypertension : Eprescribed prescriptions (G8553) Indication: Essential hypertension SCIATICA : Eprescribed prescriptions (G8553) Indication: SCIATICA Congestion of nasal sinus : Follow up if no improvement or if symptoms worsen Indication: Congestion of nasal sinus Other hyperlipidemia : Eprescribed prescriptions (G8553) Indication: Other hyperlipidemia Wheeze : Follow up if no improvement or if symptoms worsen Indication: Wheeze Cough : Eprescribed prescriptions (G8553) Indication: Cough Cough : Cough Medicines, Nonprescription: drug Indication: Cough Viral infection, unspecified : Eprescribed prescriptions (G8553) Indication: Viral infection, unspecified Essential hypertension : Blood Pressure: hypertension Indication: Essential hypertension Essential hypertension : Eprescribed prescriptions (G8553) Indication: Essential hypertension Cough : Follow up if no improvement or if symptoms worsen Indication: Cough Sinusitis : Sinusitis *: sinus infection Indication: Sinusitis Other hyperlipidemia : High Cholesterol (Hypercholesterolemia) *: blood Indication: Other hyperlipidemia Combined arterial insufficiency and corporo-venous occlusive erectile dysfunction : Follow up if no improvement or if symptoms worsen Indication: Combined arterial insufficiency and corporo-venous occlusive erectile dysfunction ALLERGIC RHINITIS DUE TO OTHER ALLERGEN : Allergy proofing Indication: ALLERGIC RHINITIS DUE TO OTHER ALLERGEN ALLERGIC RHINITIS DUE TO OTHER ALLERGEN : Allergy control Indication: ALLERGIC RHINITIS DUE TO OTHER ALLERGEN ALLERGIC RHINITIS DUE TO OTHER ALLERGEN : *URI Symptoms Indication: ALLERGIC RHINITIS DUE TO OTHER ALLERGEN Combined arterial insufficiency and corporo-venous occlusive erectile dysfunction : Erectile Dysfunction: erectile dysfunction Indication: Combined arterial insufficiency and corporo-venous occlusive erectile dysfunction Essential hypertension : High Blood Pressure (Essential Hypertension) *: blood pressure Indication: Essential hypertension Cough : *Antibiotic Usage Education - Male Indication: Cough Cough : Cough: coughing Indication: Cough Acute sinusitis : *Antibiotic Usage Education - Male Indication: Acute sinusitis Knee pain : Follow up in 2 weeks Indication: Knee pain Bronchitis : *URI Treatment Indication: Bronchitis Bronchitis : *URI Symptoms Indication: Bronchitis Bronchitis : *Antibiotic Usage Education - Female Indication: Bronchitis Need for prophylactic vaccination and inoculation against influenza : Follow up in 2 weeks Indication: Need for prophylactic vaccination and inoculation against influenza Viral infection, unspecified : *URI Symptoms Indication: Viral infection, unspecified Viral infection, unspecified : *URI Treatment Indication: Viral infection, unspecified Anxiety : depression/anxiety treatment Indication: Anxiety Anxiety : *Antidepressant Usage Indication: Anxiety Anxiety : FOLLOW UP IN 1 WEEK Indication: Anxiety Anxiety : depression/anxiety treatment Indication: Anxiety Anxiety : *Antidepressant Usage Indication: Anxiety Diarrhea : *Abd Pain Red Flags Indication: Diarrhea Diarrhea : Diarrhea Education Indication: Diarrhea Viral infection, unspecified : *URI Symptoms Indication: Viral infection, unspecified Viral infection, unspecified : *URI Treatment Indication: Viral infection, unspecified Low back pain : FOLLOW UP IN 1 MONTH Indication: Low back pain Combined arterial insufficiency and corporo-venous occlusive erectile dysfunction : erection medication education Indication: Combined arterial insufficiency and corporo-venous occlusive erectile dysfunction Essential hypertension : Diet and Exercise Indication: Essential hypertension Other hyperlipidemia : Diet and Exercise Indication: Other hyperlipidemia Depression : FOLLOW UP IN 6 WEEKS Indication: Depression Depression : Antidepressant Usage Indication: Depression FOLLOW UP IN 6 WEEKS Other hyperlipidemia : FOLLOW UP IN 6 WEEKS Indication: Other hyperlipidemia Planned Observations PSA (PROSTATE SPECIFIC ANTIGEN) (V76.44)Indication: Screening for prostate cancer On: 0-Zsa-304576:03 Request TSH (97178)Indication: Other hyperlipidemia On: :58 Request URINALYSIS, W/ MICRO (91144)Indication: Essential hypertension On: 8-Wls-485947:58 Request MICROALBUMIN: CREATININE RATIO (30391) AND (24122)Indication: Essential hypertension On: :58 Request METABOLIC PANEL, COMPREHENSIVE (91032)Indication: Essential hypertension On: :58 Request CBC W/AUTO DIFF WBC (18184)Indication: Essential hypertension On: :58 Request LIPID PANEL (84602)Indication: Other hyperlipidemia On: :58 Request URINALYSIS, W/ MICRO (02799)Indication: Essential hypertension On: :56 Request CBC W/AUTO DIFF WBC (22992)Indication: Essential hypertension On: :56 Request METABOLIC PANEL, COMPREHENSIVE (92377)Indication: Other hyperlipidemia On: :56 Request LIPID PANEL (39994)Indication: Other hyperlipidemia On: :56 Request PSA (PROSTATE SPECIFIC ANTIGEN) (V76.44)Indication: Screening for prostate cancer On: :56 Request METABOLIC PANEL, COMPREHENSIVE (45458)Indication: Essential hypertension On: :56 Request LIPID PANEL (29800)Indication: Other hyperlipidemia On: :56 Request CBC WITH MANUAL DIFF ([id number])Indication: Essential hypertension On: : Request METABOLIC PANEL, COMPREHENSIVE (63119)Indication: Essential hypertension On: : Request LIPID PANEL (90005)Indication: Other hyperlipidemia On: : Request TESTOSTERONE ,TOT/FREE 92402 (52785)Indication: Combined arterial insufficiency and corporo-venous occlusive erectile dysfunction On: :13 Request PSA, TOTAL - DIAGNOSTIC (37998)Indication: Combined arterial insufficiency and corporo- venous occlusive erectile dysfunction On: 07-Abr-470998:13 Request LIPID PANEL (00555)Indication: Other hyperlipidemia On: :31 Request METABOLIC PANEL, COMPREHENSIVE (03543)Indication: Essential hypertension On: :31 Request TESTOSTERONE FREE (49389)Indication: Combined arterial insufficiency and corporo- venous occlusive erectile dysfunction On: :29 Request PSA (PROSTATE SPECIFIC ANTIGEN) (V76.44)Indication: Screening for prostate cancer On: 1-Vcv-798339:31 Request TSH ([id number])Indication: Dysthymic disorder On: :31 Request URINALYSIS, W/ MICRO (84536)Indication: Essential hypertension On: 3-Qde-986659:30 Request CBC WITH MANUAL DIFF (46514)Indication: Essential hypertension On: 5-Fwn-136506:30 Request METABOLIC PANEL, COMPREHENSIVE (58162)Indication: Essential hypertension On: 7-Ikn-804175:30 Request LIPID PANEL (15106)Indication: Other hyperlipidemia On: :27 Request PSA (PROSTATE SPECIFIC ANTIGEN) (V76.44)Indication: Screening for prostate cancer On: 3-Ebz-271884:54 Request CBC WITH MANUAL DIFF ([id number])Indication: Essential hypertension On: 3-Rkf-699632:52 Request METABOLIC PANEL, COMPREHENSIVE (71355)Indication: Essential hypertension On: 2-Aac-621179:52 Request LIPID PANEL (04756)Indication: Other hyperlipidemia On: 1-Wvv-361823:52 Request URINALYSIS, W/ MICRO (78515)Indication: Essential hypertension On: 83-Kfh-283283:04 Request CBC WITH MANUAL DIFF (56011)Indication: Essential hypertension On: :58 Request METABOLIC PANEL, COMPREHENSIVE (06585)Indication: Essential hypertension On: :58 Request LIPID PANEL (09388)Indication: Other hyperlipidemia On: :58 Request METABOLIC PANEL, COMPREHENSIVE (37180)Indication: Essential hypertension On: :45 Request LIPID PANEL (06151)Indication: Other hyperlipidemia On: :45 Request PSA (PROSTATE SPECIFIC ANTIGEN) (71930)Indication: Essential hypertension On: :33 Request URINE NATO CULTURE-IDENTIFICATN (08141)Indication: Essential hypertension On: :33 Request CBC with manual diff (94405)Indication: Essential hypertension On: :33 Request Metabolic Panel, Comprehensive (62397)Indication: Essential hypertension On: :32 Request Lipid Panel (95913)Indication: Essential hypertension On: 2-Snq-879893:32 Request URINALYSIS, W/ MICRO (54828)Indication: Essential hypertension On: 40-Wpk-272425:46 Request LIPID PANEL (11184)Indication: Hyperglyceridemia On: :45 Request CBC WITH MANUAL DIFF (27395)Indication: Essential hypertension On: 86-Qfi-208126:45 Request METABOLIC PANEL, COMPREHENSIVE (35491)Indication: Essential hypertension On: 17-Kfy-731731:45 Request OVA & PARASITE DIR SMEAR ([id number])Indication: Diarrhea On: :35 Request OCCULT BLOOD FECES SCREEN (32340)Indication: Diarrhea On: :35 Request LEUKOCYTE COUNT, FECAL (48656)Indication: Diarrhea On: :35 Request C-DIFFICILE, STOOL (48808)Indication: Diarrhea On: :35 Request NATO CULTURE-STOOL (63686)Indication: Diarrhea On: 4-Oct-14929:35 Request METABOLIC PANEL, COMPREHENSIVE (55654)Indication: Essential hypertension On: :44 Request HEPATIC FUNCTION PANEL (68675)Indication: Other hyperlipidemia On: :44 Request LIPID PANEL (74160)Indication: Other hyperlipidemia On: :44 Request LIPID PANEL (69341)Indication: Other hyperlipidemia On: :39 Request TSH (65954)Indication: Depression On: :39 Request CBC WITH MANUAL DIFF (19974)Indication: Renal insufficiency syndrome On: :39 Request TESTOSTERONE FREE ([id number])Indication: Combined arterial insufficiency and corporo- venous occlusive erectile dysfunction On: 75-Bxk-258795:33 Request PSA (PROSTATE SPECIFIC ANTIGEN) (V76.44)Indication: Screening for prostate cancer On: 96-Sau-517353:33 Request METABOLIC PANEL, COMPREHENSIVE (90581)Indication: Renal insufficiency syndrome On: 12-Uun-919696:31 Request HEPATIC FUNCTION PANEL (45958)Indication: Other hyperlipidemia On: 4-Dib-503480:33 Request PSA (PROSTATE SPECIFIC ANTIGEN) (V76.44)Indication: Screening for prostate cancer On: 2-Dqq-229794:35 Request URINALYSIS W/O MICRO (59605)Indication: Essential hypertension On: 2-Xdk-570295:33 Request TSH (48713)Indication: Essential hypertension On: 9-Tes-419963:33 Request CBC WITH MANUAL DIFF ([id number])Indication: Essential hypertension On: 9-Ngc-100244:33 Request METABOLIC PANEL, COMPREHENSIVE (63340)Indication: Essential hypertension On: 6-Uoy-265988:33 Request LIPID PANEL (50102)Indication: Other hyperlipidemia On: 0-Vgu-760490:32 Request HEPATIC FUNCTION PANEL (48453)Indication: Other hyperlipidemia On: 3-Nht-888796:06 Request LIPID PANEL ([id number])Indication: Other hyperlipidemia On: 1-Cui-835558:06 Request LIPID PANEL ([id number])Indication: Hyperglyceridemia On: 57-Eus-248269:16 Request URINALYSIS W/O MICRO (11735)Indication: Essential hypertension On: 17-Pxo-993678:15 Request TSH (08587)Indication: Essential hypertension On: 92-Auq-482585:15 Request METABOLIC PANEL, COMPREHENSIVE (71970)Indication: Essential hypertension On: 74-Lqi-916861:15 Request CBC WITH MANUAL DIFF (87948)Indication: Essential hypertension On: 89-Htg-299438:15 Request HEPATIC FUNCTION PANEL (07487)Indication: Other hyperlipidemia On: 90-Bes-527940:15 Request LIPID PANEL (65352)Indication: Other hyperlipidemia On: 57-Uiq-868223:15 Request PSA (PROSTATE SPECIFIC ANTIGEN) (78807)Indication: Shoulder pain On: :56 Request LIPID PANEL (48377)Indication: Other hyperlipidemia On: :55 Request URINALYSIS W/O MICRO (79990)Indication: Essential hypertension On: :55 Request TSH (56040)Indication: Essential hypertension On: :55 Request METABOLIC PANEL, COMPREHENSIVE (39452)Indication: Essential hypertension On: :55 Request CBC WITH MANUAL DIFF (04646)Indication: Essential hypertension On: :55 Request METABOLIC PANEL, COMPREHENSIVE (87447) On: 5-Mda-688534:30 Request Planned Procedures Flu Vaccine (Quadrivalent) 29041Qj: On: 31-Aug-2018 Intent Shiela Trejo Comments: Flulaval Quad [id number] 22261.5mlL dltd, IMMLIBBY Tavares signed Toradol Injection, 30 mg On: 31-Aug-2018 Intent (J1885)By: Shiela Trejo Comments: toradol 30mg injection lot:[id number]:03/2020L GMpt tolerated wellMSNATY CHAU Radiology - Lumbar SpineBy: On: 31-Aug-2018 Intent Shiela Trejo COMP EYE EXAMINATION, ESTAB PATIENT On: 03-Nov-2017 Intent (34814)By: Criss Luna CNP Flu Vaccine (Quadrivalent) 83314In: On: 03-Sep-2017 Intent Eladia Corley DO, DO, Comments: Lot:[id number]:12/2017Dose:0.5mLRoute:IMSite:L DltdGiven By:RUSS signed Eladia CT SINUS W CON (35040)By: Barney On: 27-Nov-2016 Intent Eladia PAZ DO, Eladia SPECIMEN HNDLNG/TRNSPRT, OFFC > LAB On: 27-Nov-2016 Intent (62387)By: Eladia Corley DO, DO, Kathleen Aerosol Treatment (45643)By: Barney On: 31-Oct-2016 Eladia Garza DO, DO, Kathleen Comments: albulterol 0.83%more a/e- feels better Flu Vaccine (Quadrivalent) 17522Tf: On: 15-Aug-2016 Intent Eladia Corley DO, DO, Comments: FLUlot: [id number]:01/29site:Lt deltoidroute:IMdose:.5mlDEMICK, MA Eladia ELECTROCARDIOGRAM, COMPLETE (ECG) On: 15-Aug-2016 Intent (46221)By: Eladia Corley DO Comments: nsr no acute chg Eladia Corley DO Aerosol Treatment (01495)By: Cheryl On: 01-Mar-2016 Intent Criss HUTCHINS Aerosol Treatment (26735)By: Elinor On: 23-Feb-2016 Intent Stormy ALFONSO Flu Vaccine (Quadrivalent) 18813Sx: On: 04-Oct-2015 Intent Betsy Calvert DO Comments: Lot:[id number]:03/14/16Dose:0.5mLRoute:IMSite:L DltdGiven By:RUSS signed Toradol Injection, 30 mg On: 25-Sep-2015 Intent (J1885)By: Criss Luna CNP Comments: lot: [id number]: 11/13/16site/route: RGM/IMamt: 1mLVIS signed when applicableUnion [place], [facility] On: 18-Jul-2014 Intent VACCINE (G0008)By: Criss Luna CNP Flu Vaccine (Quadrivalent) 74005Wa: On: 18-Jul-2014 Intent Criss Luna CNP Comments: lot:[id number]:dose:0.5mLRoute: IMlocation: L armgiven by: roland Aerosol Treatment (60363)By: Cheryl On: 18-Jul-2014 Intent Criss HUTCHINS Spirometry (94667)By: Enrike PAZ, On: 07-Dec-2013 Intent Betsy Joseph Comments: attempted effort 3 times not great test but looks like small airway slight down CT - ChestBy: Betsy Calvert DO A On: 07-Dec-2013 Intent Nuclear Stress Test/Stress On: 20-Aug-2013 Intent SPECT/TreadmillBy: Angie Calvert DOa A EKG (92788)By: Claudette Ley On: 20-Aug-2013 Intent Comments: ekg showed normal sinus rhythym, normal axis, no acute st/t wave changes FLU VAC, SPLIT, >3 YEARS, INTRAMUSC On: 20-Aug-2013 Intent (47520)By: Claudette Ley Comments: Lot #:[id number] date:mount given:0.5mlRoute: IMSite given: L dltdVIS and ABN signedGiven by: cristiano Eprescribed prescriptions On: 20-Aug-2013 Intent (G8553)By: Claudette LeyIZ ADMNIN, 1 VAC, SNGL/COMBO On: 20-Aug-2013 Intent ([id number])By: Claudette Ley CT - ChestBy: Betsy Calvert DO On: 04-Jun-2013 Intent Eprescribed prescriptions On: 04-Jun-2013 Intent (G8553)By: Claudette Ley Eprescribed prescriptions On: 13-Jan-2013 Intent (G8553)By: Criss Luna CNP EKG (88539)By: Claudette Ley On: 22-Dec-2012 Intent Comments: ekg showed normal sinus rhythym, normal axis, no acute st/t wave changes CT - ChestBy: Angie Calvert DOa A On: 22-Dec-2012 Intent Comments: february Eprescribed prescriptions On: 22-Dec-2012 Intent (G8553)By: Claudette Ley IMMUNIZ ADMNIN, 1 VAC, SNGL/COMBO On: 17-Aug-2012 Intent (11605)By: Betsy Calvert DO Comments: Lot #[id number]/5/14Site-left deltoidDose- 0.5mlgiven by: Lane Jones LPN PNEUM VAC ADLT/IMUMNOSPR, SBC/INTRM On: 17-Aug-2012 Intent (24803)By: Betsy Calvert DO CT - ChestBy: Betsy Calvert DO On: 17-Aug-2012 Intent Eprescribed prescriptions On: 17-Aug-2012 Intent (G8553)By: Claudette Ley Eprescribed prescriptions On: 06-Jul-2012 Intent (G8553)By: Shiela Campos LPN Eprescribed prescriptions On: 04-Dec-2011 Intent (G8553)By: Betsy Calvert DO Toradol Injection, 30 mg On: 27-Nov-2011 Intent (J1885)By: Criss Luna CNP Comments: Lot #[id number]-right hipDose- 30mg/mlgiven by: Lane Jones LPN Radiology - Knee - RightBy: Cheryl On: 27-Nov-2011 Criss Garza CNP Radiology - Knee - Right - Weight On: 27-Nov-2011 Intent BearingBy: Criss Luna CNP Pulse Oximetry (54065)By: Enrike PAZ, On: 21-Oct-2011 Intent Betsy Joseph Comments: 95 EKG (04853)By: Betsy Calvert DO On: 21-Oct-2011 Intent Comments: ekg showed normal sinus rhythym, normal axis, no acute st/t wave changes poor r wave progression Echo CompleteBy: Betsy Calvert DO A On: 21-Oct-[address] - Chest (IV Contrast Needed)By: On: 17-Oct-2011 Intent Eladia Corley DO Barney Eladia PAZ Toradol Injection, 30 mg On: 11-Jun-2011 Intent (J1885)By: Criss Luna CNP Comments: Lot #[id number] hip, IMDose prefilledgiven by:Cristiano FLU VAC, SPLIT, >3 YEARS, INTRAMUSC On: 11-Jun-2011 Intent (46974)By: Criss Luna CNP Comments: Lot #[id number]/12Site-L arm, IMDose prefilledgiven by:Cristiano IMMUNIZ ADMNIN, 1 VAC, SNGL/COMBO On: 11-Jun-2011 Intent (72063)By: Cheryl HUTCHINSCriss EKG (26766)By: Claudette Ley On: 30-Apr-2011 Intent Comments: ekg showed normal sinus rhythym, normal axis, no acute st/t wave changes TDAP VACCINE >7 IM (69790)By: Cheryl On: 27-Jul-2010 Intent LISETCriss FLU VAC, SPLIT, >3 YEARS, INTRAMUSC On: 13-Jul-2010 Intent (04934)By: Claudette Ley Comments: Lot #:[id number] date:mount given:0.5mlRoute: IMSite given:left deltGiven by: MICHOACANO Sheehan IMMUNIZ ADMNIN, 1 VAC, SNGL/COMBO On: 13-Jul-2010 Intent (71290)By: Claudette Ley Aerosol Treatment (95412)By: Cheryl On: 18-Jun-2010 Intent Criss HUTCHINS Bio Z (93073)By: Cheryl HUTCHINS Criss Francisco On: 18-Jul-2009 Intent EKGBy: Cheryl Criss HUTCHINS On: 18-Jul-2009 Intent FLU VAC, SPLIT, >3 YEARS, INTRAMUSC On: 16-Jun-2009 Intent ([id number])By: Kiesha Garcia RN IMMUNIZ ADMNIN, 1 VAC, SNGL/COMBO On: 16-Jun-2009 Intent (59512)By: Kiesha Garcia RN Radiology - ChestBy: Fast DO, Betsy On: 18-Nov-2008 Intent A Comments: mati and lat Holter Monitor 24 hrsBy: Fast DO, On: 15-Jul-2008 Intent Betsy A Comments: 1 month Nuclear Stress Test/Stress On: 15-Jul-2008 Intent SPECT/TreadmillBy: Fast DO, Betsy A FLU VAC, SPLIT, >3 YEARS, INTRAMUSC On: 15-Jul-2008 Intent (36838)By: Claudette Ley Comments: Lot #[id number]-right deltoidDose0.5mlgiven by Aurelia Kraft LPN IMMUNIZ ADMNIN, 1 VAC, SNGL/COMBO On: 15-Jul-2008 Intent ([id number])By: Claudette Ley Holter Monitor 24 hrsBy: Fast DO, On: 17-Nov-2007 Intent Betsy A Holter Monitor 24 hrsBy: Fast DO, On: 26-Oct-2007 Intent Betsy A Echo CompleteBy: Fast DO, Betsy A On: 26-Oct-2007 Intent EKG (77301)By: Claudette Ley On: 26-Oct-2007 Intent Comments: ekg showed normal sinus rhythym, normal axis, no acute st/t wave changes with premature ventricular contraction FLU VAC, SPLIT, >3 YEARS, INTRAMUSC On: 07-Jul-2007 Intent (85791)By: Criss Luna CNP Comments: given in left deltoid, 0.5cc, lot#[id number], exp. 6.30.08 WF FLU VAC, SPLIT, >3 YEARS, INTRAMUSC On: 22-Aug-2006 Intent ([id number])By: SHABBIR Mendoza IMMUNIZ ADMNIN, 1 VAC, SNGL/COMBO On: 22-Aug-2006 Intent (47611)By: SHABBIR Mendoza Flu Vaccine, Split IM (99698)By: On: 18-Aug-2006 Intent Fast DO, Betsy A EKG (08961)By: Claudette Ley On: 18-Aug-2006 Intent Comments: ekg showed normal sinus rhythym, normal axis, no acute st/t wave changes Planned Medications INJECTION, KETOROLAC TROMETHAMINE, PER 15 MG Ordered: 11-Jun-2011 Pending Criss Luna CNP INJECTION, KETOROLAC TROMETHAMINE, PER 15 MG Ordered: 27-Nov-2011 Pending Criss Luna CNP INJECTION, KETOROLAC TROMETHAMINE, PER 15 MG Ordered: 25-Sep-2015 Pending Ciesa LISET Genoveva INJECTION, KETOROLAC TROMETHAMINE, PER 15 MG Ordered: 31-Aug-2018 Pending Shiela Trejo Instructions Name Dates Details Nonsmoker : How to access health information online Indication: Nonsmoker Nonsmoker : How to access health information online - Detail Indication: Nonsmoker Elevated blood pressure reading : Patient Instructions Indication: Elevated blood pressure reading Tick bite : How to access health information online Indication: Tick bite Tick bite : How to access health information online - Detail Indication: Tick bite Tick bite : Patient Instructions Indication: Tick bite Itchy, watery, and red eye : How to access health information online Indication: Itchy, watery, and red eye Itchy, watery, and red eye : How to access health information online - Detail Indication: Itchy, watery, and red eye Itchy, watery, and red eye : Patient Instructions Indication: Itchy, watery, and red eye Nonsmoker : How to access health information online Indication: Nonsmoker Nonsmoker : How to access health information online - Detail Indication: Nonsmoker Nonsmoker : Patient Instructions Indication: Nonsmoker Nonsmoker : How to access health information online Indication: Nonsmoker Nonsmoker : How to access health information online - Detail Indication: Nonsmoker Nonsmoker : Patient Instructions Indication: Nonsmoker Nonsmoker : How to access health information online Indication: Nonsmoker Nonsmoker : How to access health information online - Detail Indication: Nonsmoker Nonsmoker : Patient Instructions Indication: Nonsmoker Nonsmoker : How to access health information online Indication: Nonsmoker Nonsmoker : How to access health information online - Detail Indication: Nonsmoker Nonsmoker : Patient Instructions Indication: Nonsmoker Nonsmoker : How to access health information online Indication: Nonsmoker Nonsmoker : How to access health information online - Detail Indication: Nonsmoker Nonsmoker : Patient Instructions Indication: Nonsmoker Nonsmoker : How to access health information online Indication: Nonsmoker Nonsmoker : How to access health information online - Detail Indication: Nonsmoker Nonsmoker : Patient Instructions Indication: Nonsmoker Nonsmoker : How to access health information online Indication: Nonsmoker Nonsmoker : How to access health information online - Detail Indication: Nonsmoker Nonsmoker : Patient Instructions Indication: Nonsmoker Nonsmoker : How to access health information online Indication: Nonsmoker Nonsmoker : How to access health information online - Detail Indication: Nonsmoker Nonsmoker : Patient Instructions Indication: Nonsmoker Cough : How to access health information online - Detail Indication: Cough Cough : How to access health information online - Detail Indication: Cough Cough : How to access health information online - Detail Indication: Cough Cough : Patient Instructions Indication: Cough Allergic rhinitis due to other allergen : How to access health information online Indication: Allergic rhinitis due to other allergen Allergic rhinitis due to other allergen : How to access health information online - Detail Indication: Allergic rhinitis due to other allergen Allergic rhinitis due to other allergen : Patient Instructions Indication: Allergic rhinitis due to other allergen Cough : How to access health information online Indication: Cough Cough : How to access health information online - Detail Indication: Cough Cough : Patient Instructions Indication: Cough Essential hypertension : How to access health information online Indication: Essential hypertension Essential hypertension : How to access health information online - Detail Indication: Essential hypertension Essential hypertension : Patient Instructions Indication: Essential hypertension SCIATICA : How to access health information online Indication: SCIATICA SCIATICA : How to access health information online - Detail Indication: SCIATICA SCIATICA : Patient Instructions Indication: SCIATICA Ganglion of wrist : Patient Instructions Indication: Ganglion of wrist Other hyperlipidemia : Patient Instructions Indication: Other hyperlipidemia Cough : Patient Instructions Indication: Cough Cough : How to access health information online Indication: Cough Viral infection, unspecified : How to access health information online Indication: Viral infection, unspecified Viral infection, unspecified : How to access health information online Indication: Viral infection, unspecified Viral infection, unspecified : How to access health information online - Detail Indication: Viral infection, unspecified Viral infection, unspecified : Patient Instructions Indication: Viral infection, unspecified Essential hypertension : How to access health information online Indication: Essential hypertension Essential hypertension : How to access health information online - Detail Indication: Essential hypertension Essential hypertension : Patient Instructions Indication: Essential hypertension Other hyperlipidemia : Patient Instructions Indication: Other hyperlipidemia Sinusitis : Patient Instructions Indication: Sinusitis Other hyperlipidemia : Patient Instructions Indication: Other hyperlipidemia Need for prophylactic vaccination and inoculation against influenza : Patient Instructions Indication: Need for prophylactic vaccination and inoculation against influenza Essential hypertension : Patient Instructions Indication: Essential hypertension ALLERGIC RHINITIS DUE TO OTHER ALLERGEN : Patient Instructions Indication: ALLERGIC RHINITIS DUE TO OTHER ALLERGEN Essential hypertension : Patient Instructions Indication: Essential hypertension Essential hypertension : Patient Instructions Indication: Essential hypertension Cough : Patient Instructions Indication: Cough Encounters Office Visit On: 31-Aug-2018 13:39 Encounter Reason: Back Pain - The injury involved the lower back (right side/ hip). The activity began 4 day(s) ago. Symptoms include back pain. Symptoms are located in the right lower back. Previous presentation include End: 31-Aug-2018 14:59 d lower back pain. Note for Back pain: Symptoms started about 5 days ago with right lower back/hip pain. No radiation down leg. No urine frequency, burning, blood in urine. Has been taking ibuprofen 600mg. Has tried heat therapy. Encounter Diagnosis: BMI 32.0-32.9,adult, Nonsmoker, Low back pain, Need for prophylactic vaccination and inoculation against influenza (Renamed from Need for immunization against influenza), Elevated blood pressure reading [facility] Office Visit On: 02-Feb-2018 9:01 Encounter Reason: Insect Bite/Sting - The insect causing the bite/sting is thought to be a tick. The patient sustained an insect bite/sting to the right leg. This occurred 1 day(s) ago. Presenting symptoms included insec End: 02-Feb-2018 10:29 t bite/sting. Symptoms include single bite or sting (possible more but not sure). Symptoms are located on the right leg. Onset was 1 day(s) ago. The patient describes this as unchanged. Note for Insect bite/sting: Was bit by a tick last night-did not lucia into skin. When found the tick-scraped it off. Was out in the [place], and also cleaning a roof off. There was more than one tick on me-but only one that had bitten. No fever or chills, rash. Encounter Diagnosis: Nonsmoker, BMI 32.0-32.9,adult, Tick bite [facility] Office Visit On: 03-Nov-2017 9:15 Encounter Reason: Eye Itching - Symptoms include eye itching, eye redness and eye burning, while symptoms do not include eye dryness. Symptoms are located in the left eye and the right eye. Onset was sudden 2 day(s) ago. End: 03-Nov-2017 9:47 The patient describes this as mild and unchanged. Note for Eye itching: Tried visine but not workingEncounter Diagnosis: BMI 32.0-32.9,adult, Nonsmoker, Itchy, watery, and red eye, Acute conjunctivitis (Renamed from Conjunctivitis, acute) [facility] Office Visit On: 03-Sep-2017 10:51 Encounter Reason: Injections - The medication the patient is here to receive is other (flu).Encounter Diagnosis: Need for prophylactic vaccination and inoculation against influenza (V04.81) End: 03-Sep-2017 11:58 [facility] Phone Encounter On: 11-Aug-2017 11:19 Encounter Diagnosis: Anxiety (300.00) End: 11-Aug-2017 11:21 [facility] Office Visit On: 19-Jun-2017 10:58 Encounter Reason: Sinusitis - No changes in management were made at the last visit. Symptoms include nasal congestion, upper tooth pain, forehead pain and forehead pressure. Onset was sudden 2 week(s) ago. The patient de End: 19-Jun-2017 11:37 scribes this as moderate in severity and worsening. Current treatment includes non- prescription analgesics, oral antihistamine and oral decongestant.Encounter Diagnosis: BMI 32.0-32.9,adult, Nonsmoker, Sinusitis, bacterial, Dysthymic disorder (300.4) [facility] Office Visit On: 25-Apr-2017 7:54 Encounter Reason: Follow up Hypertension - blood pressure range :., [ADDITIONAL REASON] Follow up tests - Date: (04/23/17 labs). Encounter Diagnosis: BMI 32.0- 32.9,adult, Nonsmoker, Essential hypertension, Coronary artery disease, non-occlusive, End: 25-Apr-2017 9:13 Depression with anxiety [facility] Phone Encounter On: 09-Apr-2017 16:08 Encounter Diagnosis: Essential hypertension End: 09-Apr-2017 16:10 [facility] Office Visit On: 08-Apr-2017 13:37 Encounter Reason: Nurse procedure visit - Reason for visit: other (bp check).[facility] End: 09-Apr-2017 8:08 Office Visit On: 01-Jan-2017 9:12 Encounter Reason: Skin Lesions - No changes in management were made at the last visit. Symptoms include single skin lesion. Lesion(s) are located on the right leg.Encounter Diagnosis: BMI 31.0-31.9,adult, Nonsmoker, Inflamed skin tag End: 01-Jan-2017 17:30 [facility] Office Visit On: 17-Dec-2016 9:38 Encounter Reason: Skin Lesion, Facial - No changes in management were made at the last visit. Symptoms include non-healing lesion. The condition involves a single lesion. Lesion(s) are located on the left cheek. Onset wa End: 17-Dec-2016 14:08 s gradual month(s) ago. The symptoms occur constantly.Encounter Diagnosis: BMI 31.0- 31.9,adult, Nonsmoker, Skin lesion, Plantar wart, left foot, Inflamed skin tag [facility] Office Visit On: 27-Nov-2016 9:37 Encounter Reason: Follow up acute care visit - The patient feels the same. Patient has been compliant with instructions. Current medication use: no side effects and compliant with dosing regimen.Encounter Diagnosis: BMI 31.0-31.9,adult, Nonsmoker, End: 27-Nov-2016 13:13 Sinusitis, bacterial, Pharyngitis, unspecified etiology [facility] Phone Encounter On: 18-Nov-2016 10:51 Encounter Diagnosis: Unspecified Diagnosis End: 18-Nov-2016 10:53 [facility] Office Visit On: 31-Oct-2016 7:13 Encounter Reason: Sinusitis - No changes in management were made at the last visit. Symptoms include nasal congestion, clear rhinorrhea, cough and headache. Onset was sudden 2 week(s) ago. The patient describes this as m End: 31-Oct-2016 11:25 oderate in severity and worsening. Associated symptoms do not include chills or fever. Current treatment includes non-prescription analgesics.Encounter Diagnosis: BMI 31.0-31.9,adult, Nonsmoker, Wheeze, Cough, Sinusitis, bacterial [facility] Office Visit On: 28-Aug-2016 11:21 Encounter Reason: Skin Lesion, Facial - No changes in management were made at the last visit. Symptoms include growing lesion, non-healing lesion and redness around lesion. The condition involves a single lesion. Lesion( End: 28-Aug-2016 12:48 s) are located on the left cheek. The symptoms occur constantly. The patient describes this as moderate in severity and worsening.Encounter Diagnosis: BMI 31.0- 31.9,adult, Nonsmoker, Skin lesion [facility] Office Visit On: 15-Aug-2016 11:23 Encounter Reason: Follow up for chronic medical issues - The patient feels well with minor complaints, has decreased energy level and is sleeping poorly. Patient has been compliant with instructions. Current medication u End: 15-Aug-2016 12:38 se: no side effects and compliant with dosing regimen. Patient sleeps 6 hours per night. Nutrition: balanced diet and no supplemental vitamins & iron. The medical issues the patient is following up for include All identified problems below, high blood pressure and high cholesterol. weight :.Encounter Diagnosis: BMI 31.0-31.9,adult, Nonsmoker, Irritable bowel syndrome (564.1), Cough, URI, acute, Bladder cancer, Other hyperlipidemia, Essential hypertension, Hearing loss, unspecified laterality, Anxiety (300.00), Coronary artery disease, non-occlusive, Sciatica, unspecified laterality, Screening for prostate cancer, Need for prophylactic vaccination and inoculation against influenza (V04.81) [facility] Office Visit On: 08-Apr-2016 10:24 Encounter Reason: Cold Symptoms - Symptoms include nasal congestion, runny nose and productive cough (yellowish). Onset was gradual 2 week(s) ago.Encounter Diagnosis: Cough, Nonsmoker, Acute sinusitis (461.9), Allergic sinusitis End: 08-Apr-2016 11:01 [facility] Office Visit On: 01-Mar-2016 7:45 Encounter Reason: Follow up acute care visit - The patient does not feel well (Cough won't go away). Patient has been compliant with instructions. Current medication use: no side effects. Patient sleeps 5 hours per night End: 01-Mar-2016 8:15 . Nutrition: balanced diet. The medical issues the patient is following up for include URI.Encounter Diagnosis: Allergic rhinitis due to other allergen, Cough [facility] Office Visit On: 23-Feb-2016 8:19 Encounter Reason: Cough - Symptoms include cough. The cough is described as productive. Cough onset was gradual 1 week(s) ago. The cough occurs constantly. Symptoms are described as unchanged. Symptoms are exacerbated by End: 23-Feb-2016 9:19 lying down. Associated symptoms include postnasal drainage and headache (pressure). Current treatment includes antihistamines (zyrtec). By report there is good compliance with treatment and poor sympto m control. Previous presentation included a cough.Encounter Diagnosis: Cough, Allergic rhinitis due to other allergen [facility] Phone Encounter On: 17-Oct-2015 15:58 Encounter Diagnosis: Erectile dysfunction End: 17-Oct-2015 16:05 [facility] Office Visit On: 04-Oct-2015 13:24 Encounter Reason: Follow up for chronic medical issues - The patient feels well with minor complaints (Was seen on 09/25 for sciatica pain. Was tx with medrol alonzo and meloxicam and is doing PT, is feeling much better.), h End: 05-Oct-2015 16:59 as good energy level (comes and goes) and is sleeping well. Patient has been compliant with instructions. Current medication use: no side effects and compliant with dosing regimen. Patient sleeps 6 (wor ks second shift so hours are broken up) hours per night. Impact of disease: no overall impact. Nutrition: balanced diet. The medical issues the patient is following up for include All identified problem s below, cardiac issues, high blood pressure, high cholesterol, osteoarthritis and other. Note for Follow up for chronic medical issues: he started pt for sciatic and seems to be improving- bp is good and saw urology-- results good and had prostate exam told little enlarged- and bladder cancer doing well- bp is good- toleratingmeds without side effectsEncounter Diagnosis: Other hyperlipidemia, Essential hypertension, Combined arterial insufficiency and corporo-venous occlusive erectile dysfunction, Screening for prostate cancer, Need for prophylactic vaccination and inoculation against influenza (V04.81), SCIATICA (724.4), Bladder cancer, Aneurysm of iliac artery (442.2) [facility] Annotation/Addendum On: 26-Sep-2015 16:50 Encounter Diagnosis: Sciatica, unspecified laterality End: 26-Sep-2015 16:54 [facility] Office Visit On: 25-Sep-2015 9:35 Encounter Reason: Back Pain - The injury occurred 1 week(s) ago.Encounter Diagnosis: SCIATICA (724.4) End: 26-Sep-2015 12:14 [facility] Office Visit On: 06-Dec-2014 8:10 Encounter Reason: Groin Sprain/Strain - The patient sustained an injury to the groin bilaterally. This occurred 1 week(s) ago at home. Previous presentation included groin pain. This problem has not been previously evalu End: 06-Dec-2014 8:43 ated. This problem has not been previously treated. Symptoms include pain. The pain is located in the left groin (bilateral, it seems to move). The pain radiates to the left thigh. The patient describes the pain as dull and aching. Onset was sudden 1 week(s) ago. The symptoms occur intermittently. The patient describes symptoms as moderate in severity and worsening. The patient is not currently being treated for this problem. By report there is good compliance with treatment. Pertinent medical history includes previous groin strain. The patient is currently able to do activities of daily living without limitations.Encounter Diagnosis: Groin strain, initial encounter [facility] Office Visit On: 10-Oct-2014 15:13 Encounter Reason: Wrist Pain - Symptoms include wrist pain and decreased range of motion, while symptoms do not include swelling, redness, warmth or stiffness. Symptoms are located in the right wrist. The pain radiates t End: 10-Oct-2014 23:35 o the right forearm. The patient describes the pain as burning. Onset was sudden 5 day(s) ago. The symptoms occur intermittently. The patient describes symptoms as unchanged. Associated symptoms include pain in other joints (right shoulder), while associated symptoms do not include numbness in the hand, weakness in the hand, pain in the hand, fever or chills. Note for Wrist pain: his work requires h im to do alot of work with hands and no trauma but hurting- he tried advil /aleve and amssotherapy- no neck pain Encounter Diagnosis: Ganglion of wrist [facility] Office Visit On: 13-Sep-2014 8:14 Encounter Reason: Cough - The onset of the cough has been sudden. The cough is characterized as dry. The cough occurs all the time. The symptoms have been associated with hoarseness, while the symptoms have not been ass End: 13-Sep-2014 9:01 ociated with fever, headache, runny nose or sore throat.Encounter Diagnosis: Cough (786.2), Congestion of nasal sinus [facility] Office Visit On: 17-Aug-2014 12:15 Encounter Reason: Follow up for chronic medical issues - The patient feels well with no complaints, has good energy level and is sleeping well. Patient has been compliant with instructions. Current medication use: no agustin End: 18-Aug-2014 12:37 e effects and compliant with dosing regimen. Patient sleeps 8 hours per night. Impact of disease: no overall impact. Nutrition: balanced diet. The medical issues the patient is following up for include All identified problems below. Note for Follow up for chronic medical issues: Pt has cold sx but doesnt feel it needs addressed. Just stuffy allergies., [ADDITIONAL REASON] Follow up, Laboratory Test Results - Date: (08/16/14). Encounter Diagnosis: Hyperlipidemia, Unspecified (272.4), Hypertension (401.0) [facility] Office Visit On: 18-Jul-2014 8:04 Encounter Reason: Cough - The onset of the cough has been sudden. The cough is characterized as dry. The cough occurs all the time. The symptoms have been associated with headache, while the symptoms have not been assoc End: 18-Jul-2014 8:54 iated with fever, runny nose or wheezing.Encounter Diagnosis: Cough, Wheeze, Need for prophylactic vaccination and inoculation against influenza (V04.81) [facility] Phone Encounter On: 13-Jun-2014 14:06 Encounter Diagnosis: Unspecified Diagnosis End: 13-Jun-2014 14:08 [facility] Office Visit On: 08-Jun-2014 8:17 Encounter Reason: Flu Like Symptoms - Onset was 3 day(s) ago.Encounter Diagnosis: Hypertension (401.0), Viral infection, unspecified (079.99) End: 08-Jun-2014 8:46 [facility] Office Visit On: 27-Apr-2014 11:34 Encounter Reason: Follow up for chronic medical issues - The patient feels well with minor complaints, has good energy level and is sleeping well. Patient has been compliant with instructions. Current medication use: no End: 28-Apr-2014 20:24 side effects and compliant with dosing regimen. Patient sleeps 8 hours per night. Impact of disease: no overall impact. Nutrition: balanced diet. Note for Follow up for chronic medical issues: feeling pretty good - weight up - bit - his bp is good - he is trying to keep active riding bike and walking dog-seeing Antw[facility] for bladder cancer had surgery chemo and freq cystocscopy- has followup in jul Encounter Diagnosis: Hypertension (401.0), Hyperlipidemia, Unspecified (272.4), Bladder cancer, Lung nodule (518.89), SCREENING FOR CANCER OF THE PROSTATE (V76.44) [facility] Office Visit On: 07-Dec-2013 8:11 Encounter Reason: Follow up for chronic medical issues - The patient feels well with minor complaints, has good energy level and is sleeping well. Patient has been compliant with instructions. Current medication use: no End: 07-Dec-2013 9:12 side effects and compliant with dosing regimen. Patient sleeps 7 hours per night. Nutrition: balanced diet. blood pressure range :. Note for Follow up for chronic medical issues: he was diagnosed with bladder cancer and had removed done in hospital- he was told followup january -no other therapy now- had stress test was good no chest pain now- and his cough finally better in house but cold still issue and still some wheeze Encounter Diagnosis: Hyperlipidemia, Unspecified (272.4), Lung nodule (518.89), Hypertension (401.0), Bladder cancer, Cough (786.2) [facility] Office Visit On: 27-Oct-2013 8:01 Encounter Reason: Follow up acute care visit - The patient does not feel well. Patient has been compliant with instructions. The medical issues the patient is following up for include All identified problems below and other (sinusitis). End: 27-Oct-2013 8:24 Encounter Diagnosis: Sinusitis, Cough (786.2) [facility] Office Visit On: 11-Oct-2013 9:08 Encounter Reason: Sinusitis/ - The duration of the symptoms are 4 days The course has been constant. The sinusitis/ has no relieving factors. Associated features include The symptoms have been associated with cough, ear End: 11-Oct-2013 9:43 pain, nasal discharge/stuffy nose and sinus pain. Note for Sinusitis/: no fevers. some ache. had few days. taking mucinex DM. not blowing or coughing up anythingEncounter Diagnosis: Sinusitis [facility] Office Visit On: 24-Aug-2013 14:20 Encounter Reason: Follow up, Laboratory Test Results - Date: (08/20/13). Note for Follow up to discuss laboratory test results: Pt wants to talk about what the Urologist suggested and see what df's opinion is or guidanc End: 24-Aug-2013 22:45 e on it.- he started taking lipitor 40 now -antwan called him and said urine cytology abnornal and wants to do cystoscopy and he wanted my opinionEncounter Diagnosis: Hyperlipidemia, Unspecified (272.4), Abnormal urine cytology [facility] Office Visit On: 20-Aug-2013 13:03 Encounter Reason: Follow up for chronic medical issues - The patient feels well with no complaints, has good energy level and is sleeping well. Patient has been compliant with instructions. Current medication use: no agustin End: 22-Aug-2013 21:28 e effects and compliant with dosing regimen. Patient sleeps 7 (broken up) hours per night. Nutrition: inappropriate diet, no supplemental vitamins & iron and low salt diet. The medical issues the mati murphy is following up for include All identified problems below, depression, high blood pressure, high cholesterol and other (RI). Note for Follow up for chronic medical issues: Pt had bloodwork done this am but not back yet.- he saw Antwan for prostate and his symptoms got better and did prostateexam and psa- Encounter Diagnosis: Need for prophylactic vaccination and inoculation against influenza (V04.81), Hypertension (401.0), Hyperlipidemia, Unspecified (272.4), Lung nodule (518.89), Prostatitis (601.9), Coronary Artery Disease (414.00) [facility] Office Visit On: 02-Aug-2013 10:39 Encounter Reason: Sexual dysfunction - The onset of the sexual dysfunction has been sudden and has been occurring in a persistent pattern for 1 week. The course has been constant. The sexual dysfunction is characterized End: 02-Aug-2013 11:33 as a failure of ejaculation. The patient's libido is normal. There have been no spontaneous erections. There has been associated use of antihypertensives, while there has been no anxiety, diabetes mellitus, fatigue or smoking.Encounter Diagnosis: ERECTILE DYSFUNCTION (607.84), Prostatitis (601.9) [facility] Office Visit On: 04-Jun-2013 11:43 Encounter Reason: Follow up for chronic medical issues - The patient feels well with no complaints, has good energy level and is sleeping well (for the most part- works till midnight then cant fall asleep right away then End: 06-Jun-2013 20:39 gets up to see in am). Patient has been compliant with instructions. Current medication use: no side effects and compliant with dosing regimen. Patient sleeps 7 (broken up) hours per night. Nutrit ion: inappropriate diet, no supplemental vitamins & iron and low salt diet. The medical issues the patient is following up for include All identified problems below, depression, high blood pressure, high cholesterol and other (RI). Note for Follow up for chronic medical issues: bp is good and weight is stable - he saw Dr Barry about groin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
--- OUTSIDE RECORDS SUMMARY | 2018-12-03 06:42 | XMS RPT_ITS ---
:1955 Author Organization [facility] Care Team Providers Name Role Phone Shiela Trejo OCCUPATIONAL HEALTH NURSE-C Attending Unavailable Shiela TrejoC Referring Unavailable Eladia Corley Primary Care Unavailable Eladia Corley Attending Unavailable Eladia Corley Referring Unavailable Eladia Corley Primary Care Unavailable PROBLEMS PROBLEMS DATE TYPE CONDITION / CODE ATTENDING STATUS SOURCE 10/06/2018 Unknown M50.30 - Other [place], Active [place] cervical disc [facility] degeneration, [facility] unspecified Repository cervical region / M50.30(ICD-10) 10/06/2018 Unknown M53.82 - Other [place], Active [place] specified [facility] dorsopathies, [facility] cervical region / Repository M53.82(ICD-10) PROCEDURES PROCEDURES No Procedure Records FoundRESULTS RESULTS INITAL EVALUATION (1) Observed: 09/17/2018 Status: F Source: [place] - PT 9:49 AM [facility] REPOSITORY [facility]. [address] [place] [address] / REHABILITATION SERVICES INITIAL EVALUATION MR#: [id number] Acct: [id number] Name: GONZÁLEZ LOCK Rep #: [id number] : 1955 62 From: Winston Sanders PT, Cert. MDT, OCS Referring Dr.: Eladia Corley DO Status: REG RCR Insurance: [facility] SELF PAY INSURANCE Patient's Visit Information GONZÁLEZ LOCK is a 62 year old M referred to Physical Therapy by Eladia Corley DO with a diagnosis of DDD /FACET. Date of Evaluation: 09/16/18 Physical Therapist: Winston Sanders, PT, Cert MDT, OCS - Visit Plan Frequency: 2x /Week Duration: 4 Weeks Plan: POSTURAL ,GRADED MOTION LUMBAR,DLS ABD/BACK ,LE FLEXABLITY - Subjective Findings: This 62 y/o male presents to physical therapy with lumbar pain with DDD. Patient has had intermittant lumbar pain for several year. Patient pain located L-S left buttuck occassioally symptoms left thigh. Pain symptoms worse with AM ,lifting. Symptoms better with walking ,moving . Denies parathesia/tingling. Bowel/bladder -. Coughing /sneezing -. Patient has had prior PT . Seen chiropractor. Massage 1x/month . Patient has no h/o trauma. Patient symptoms affect QOL and ADL'S. SOCAIL: . 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 GAIT: normal oscar. NEURO: denies parathesia/tingling ,reflexes L3-4,L4-5,L5-S1 2/3. SYMMTRIES: align. PALAPTION: unremarkable. MMT: quads/hams 4/5,hip 45/,ankle 4/5. LUMBAR ROM: flexion min loss,extension mod loss,side glides min/mod loss with decrease segmental motion. FLEXABLITY: hams mod tight ,piriformis mod tight - Special Tests L/S Slump test left side: Negative L/S Slump test right side: Negative L/S Left Straight Leg Raise: Negative L/S Right Straight Leg Raise: Negative Lumbar Standing: Flexion - Mechanical Response: No effect Lumbar Standing: Flexion - Symptoms During Testing: Increases Lumbar Standing: Flexion - Symptoms After Testing: Worse Lumbar Standing: Extension - Mechanical Response: No effect Lumbar Standing: Extension - Symptoms During Testing: Increases Lumbar Standing: Extension - Symptoms After Testing: No worse Lumbar Standing: Right Side Glides - Mechanical Response: No effect Lumbar Standing: Right Side [place] - Symptoms During Testing: No effect Lumbar Standing: Right Side [place] - Symptoms After Testing: Better Lumbar Standing: Left Side [place] - Mechanical Response: No effect Lumbar Standing: Left Side [place] - Symptoms During Testing: No effect Lumbar Standing: Left Side [place] - Symptoms After Testing: No effect - Goals Goal 1:: Independant with HEP Goal Time Frame: 4-6 Weeks Goal 2:: Independant with posture /body mechanics Goal Time Frame: 4-6 Weeks Goal 3:: Decrease lumbar pain by 60% or greater to improve function Goal Time Frame: 4-6 Weeks Goal 4:: Patient to improve lumbar ROM for function of recovery Goal Time Frame: 4-6 Weeks Goal 5:: Patient to be d/c to prophalaxis Goal Time Frame: 4-6 Weeks Goal 6:: Patient to improve BACK JANNET score by 5 points or greater to QOL Goal Time Frame: 4-6 Weeks - Rehabilitation Potential Physical Therapy Diagnosis: This 62 y/o with lumbar pain with decrease ROM ,strength thus impairs function thus benifit from skilled PT Rehabilitation Potential: Good - Anticipated Interventions Patient/Client Instruction: Educate patient on: Condition, Plan of Care For the Purpose of:: To decrease pain, To decrease swelling/inflammation, To improve muscle performance and motor function, To increase tolerance to activity/condition/position, To improve performance and independence with ADL's, To improve ability of physical actions for home/community/work/leisure, To improve health of tissue, To decrease soft tissue restriction, To increase flexibility/ROM, To improve ability to perform tasks related to life management Therapeutic Exercise to Include: Strength training, Postural training, Flexibilty training, Active ROM, Dynamic Lumbar Stabilization, [place] Exercises For the Purpose of:: To decrease pain, To increase ROM, To improve muscle performance and motor function, To increase tolerance to activity/condition/position, To improve ability of physical actions for home/community/work/leisure, To improve health of tissue, To decrease soft tissue restriction, To increase flexibility/ROM, To improve ability to perform tasks related to life management TENS: Yes IF ES: Yes Cryotherapy (ice pack, ice massage): Yes Thermo therapy (hot pack): Yes Ultrasound (thermal/non thermal): Yes For the Purpose of:: To decrease pain, To increase ROM, To improve muscle performance and motor function, To improve health of tissue, To decrease soft tissue restriction Thank you for the opportunity to evaluate your patient. For Medicare and Medicare HMO plans, please review the plan of care and approve it. It will need to be FAXED BACK to us at [phone] for Medicare purposes. For Medicare only, by signing this I certify the plan of care. Please let me know if there are questions or concerns regarding this plan of care. Physician Signature: Date: <Electronically signed by Winston Sanders PT, Cert. MDT, OCS> 09/17/18 0949 CC: Eladia Corley DO LUIS Signed L/S SPINE MIN 4 Observed: 08/31/2018 Status: F Source: VETERAN VIEWS 2:21 PM [facility] REPOSITORY [facility] Imaging Services [address] [place] [id number] L/S Spine Min 4 Views MR#: [id number] Acct: [id number] Name: GONZÁLEZ LOCK Rep #: [id number] : 1955 M 62 From: Sylvester Schofield MD PCP: Eladia Corley DO Status: REG CLI Study: L/S Spine Min 4 Views Date of Exam: 08/31/18 Exam# [id number] Ordering Dr: Shiela Trejo OCCUPATIONAL HEALTH NURSEElizbaeth STUDY: X-RAY - LUMBAR SPINE REASON FOR EXAM: Male, 62 years old. Pain TECHNIQUE: 5 view(s) of the lumbar spine were obtained. COMPARISON: None FINDINGS: Diffuse degenerative disc and facet disease. No compression deformities. Alignment is normal. Foramina are patent. Arterial calcifications. RAD/L/S Spine Min 4 Views IMPRESSION: Diffuse degenerative disc and facet disease. Foramina are patent. Electronically Signed: Sylvester Schofield MD at 14:46 EST Tel , Service support , CC: GIOVANA Trejo; Eladia Corley DO Toilet Attendant: Signed ALLERGIES ALLERGIES DATE TYPE / CODE NAME / CODE REACTION SEVERITY SOURCE 07/26/2016 Drug No Known Unknown [place] [facility] Allergy/4160 Allergies/F00 Hospital 33254(SNOMED [id number](RXNOR Repository CT) M) ENCOUNTERS ENCOUNTERS ADMIT/DISCHARGE ACCOUNT ADMITTING ENCOUNTER LOCATION SOURCE NUMBER CLASS 10/06/2018 [id number] Ambulatory [place] [facility] ing:PT Repository 08/31/2018 [id number] Ambulatory [place] [facility] ing:HPRAD Repository PAYERS PAYERS ENCOUNTER GUARANTOR PAYER SUBSCRIBER SOURCE 10/06/2018 GONZÁLEZ Joseph Primary ROMA HIDERDOB: [place] [id number] Insurance[id number] Number: Repository [id number]: 330 [id number] [phone] (HP) Date:[id number] [address] [address]KL: 10/06/2018 Secondary NOT GIVENUNK [place] Insurance:SELF PAY [facility] Number: Effective Repository Date:2018-09-04 08/31/2018 GONZÁLEZ Joseph Primary JAMES Daly HIDERDOB: [place] [id number] Insurance[place]MEDICAL [id number] Number: Repository [id number]: 330 [id number] [phone] (HP) Date:[id number] [address] [address]MS: 08/31/2018 Secondary NOT GIVENUNK [place] Insurance:SELF PAY [facility] Number: Effective Repository Date:2018-08-31
== END ==
PROVIDERS: Family Provider Internal Medicine; PCP Internal Medicine; Referring Provider Nurse Practitioner Gerontology; Visit Provider Nurse Practitioner Gerontology
DX: M54.5 Low back pain (principal)
CPT/HCPCS: 72110

== ENCOUNTER 2018-10-15 14:00 | Outpatient (RCR) | payer OTHER, SELFPAY ==
--- NOTE | 2018-09-16 17:08 | HP.PTEVAL_ITS ---
Patient's Visit Information GONZÁLEZ LOCK is a 62 year old M referred to Physical Therapy by Eladia Corley DO with a diagnosis of DDD /FACET. Date of Evaluation: 09/16/18 Physical Therapist: Winston Sanders PT, Cert MDT, OCS - Visit Plan Frequency: 2x /Week Duration: 4 Weeks Plan: POSTURAL ,GRADED MOTION LUMBAR,DLS ABD/BACK ,LE FLEXABLITY - Subjective Findings: This 62 y/o male presents to physical therapy with lumbar pain with DDD. Patient has had intermittant lumbar pain for several year. Patient pain located L-S left buttuck occassioally symptoms left thigh. Pain symptoms worse with AM ,lifting. Symptoms better with walking ,moving . Denies parathesia/tingling. Bowel/bladder -. Coughing /sneezing -. Patient has had prior PT . Seen chiropractor. Massage 1x/month . Patient has no h/o trauma. Patient symptoms affect QOL and ADL'S. SOCAIL: . VOCATION: [employer] - Pain Left Back Pain Intensity (Out of 10): 2 Pain Intensity Range: 10 - Objective POSTURE: mild foward posture. GAIT: normal oscar. NEURO: denies parathesia/tingling ,reflexes L3-4,L4-5,L5-S1 2/3. SYMMTRIES: align. PALAPTION: unremarkable. MMT: quads/hams 4/5,hip 45/,ankle 4/5. LUMBAR ROM: flexion min loss,extension mod loss,side glides min/mod loss with decrease segmental motion. FLEXABLITY: hams mod tight ,piriformis mod tight - Special Tests L/S Slump test left side: Negative L/S Slump test right side: Negative L/S Left Straight Leg Raise: Negative L/S Right Straight Leg Raise: Negative Lumbar Standing: Flexion - Mechanical Response: No effect Lumbar Standing: Flexion - Symptoms During Testing: Increases Lumbar Standing: Flexion - Symptoms After Testing: Worse Lumbar Standing: Extension - Mechanical Response: No effect Lumbar Standing: Extension - Symptoms During Testing: Increases Lumbar Standing: Extension - Symptoms After Testing: No worse Lumbar Standing: Right Side Glides - Mechanical Response: No effect Lumbar Standing: Right Side [place] - Symptoms During Testing: No effect Lumbar Standing: Right Side [place] - Symptoms After Testing: Better Lumbar Standing: Left Side [place] - Mechanical Response: No effect Lumbar Standing: Left Side [place] - Symptoms During Testing: No effect Lumbar Standing: Left Side [place] - Symptoms After Testing: No effect - Goals Goal 1:: Independant with HEP Goal Time Frame: 4-6 Weeks Goal 2:: Independant with posture /body mechanics Goal Time Frame: 4-6 Weeks Goal 3:: Decrease lumbar pain by 60% or greater to improve function Goal Time Frame: 4-6 Weeks Goal 4:: Patient to improve lumbar ROM for function of recovery Goal Time Frame: 4-6 Weeks Goal 5:: Patient to be d/c to prophalaxis Goal Time Frame: 4-6 Weeks Goal 6:: Patient to improve BACK JANNET score by 5 points or greater to QOL Goal Time Frame: 4-6 Weeks - Rehabilitation Potential Physical Therapy Diagnosis: This 62 y/o with lumbar pain with decrease ROM ,strength thus impairs function thus benifit from skilled PT Rehabilitation Potential: Good - Anticipated Interventions Patient/Client Instruction: Educate patient on: Condition, Plan of Care For the Purpose of:: To decrease pain, To decrease swelling/inflammation, To improve muscle performance and motor function, To increase tolerance to activity/condition/position, To improve performance and independence with ADL's, To improve ability of physical actions for home/community/work/leisure, To improve health of tissue, To decrease soft tissue restriction, To increase flexibility/ROM, To improve ability to perform tasks related to life management Therapeutic Exercise to Include: Strength training, Postural training, Flexibilty training, Active ROM, Dynamic Lumbar Stabilization, [place] Exercises For the Purpose of:: To decrease pain, To increase ROM, To improve muscle performance and motor function, To increase tolerance to activity/condition/position, To improve ability of physical actions for home/community/work/leisure, To improve health of tissue, To decrease soft tissue restriction, To increase flexibility/ROM, To improve ability to perform tasks related to life management TENS: Yes IF ES: Yes Cryotherapy (ice pack, ice massage): Yes Thermo therapy (hot pack): Yes Ultrasound (thermal/non thermal): Yes For the Purpose of:: To decrease pain, To increase ROM, To improve muscle performance and motor function, To improve health of tissue, To decrease soft tissue restriction Thank you for the opportunity to evaluate your patient. For Medicare and Medicare HMO plans, please review the plan of care and approve it. It will need to be FAXED BACK to us at [phone] for Medicare purposes. For Medicare only, by signing this I certify the plan of care. Please let me know if there are questions or concerns regarding this plan of care. Physician Signature: Date :
--- NOTE | 2018-10-15 14:50 | HP.PTDCSUM ---
HP - PT D/C Summary It has been my pleasure to treat GONZÁLEZ LOCK under orders from Eladia Corley DO, for the diagnosis of DDD /FACET for a total of 7 visit(s). Discharge Date: 10/15/18 Please see the following information for a summary of their discharge status. - Subjective Subjective: Doing good no pain.. Exercises helped alot - Pain Left Back Pain Intensity (Out of 10): 0 - Overall Improvement % Improvement: 90 - Objective Objective/Function: POSTURE: mild foward posture,thoracic kyphosis. GAIT: reciprocal pattern. NEURO: intact. PALPATION: unremarkable. LUMBAR ROM: min loss,extension mod loss,. SLR-. MMT: 4/5 - Goals Goal 1:: Independant with HEP Goal Progress: Goal Met Goal 2:: Independant with posture /body mechanics Goal Progress: Goal Met Goal 3:: Decrease lumbar pain by 60% or greater to improve function Goal Progress: Goal Met Goal 4:: Patient to improve lumbar ROM for function of recovery Goal Progress: Goal Met Goal 5:: Patient to be d/c to prophalaxis Goal Progress: Goal Met Goal 6:: Patient to improve BACK JANNET score by 5 points or greater to QOL Goal Progress: Goal Met - Plan Plan: D/C - D/C Information Discharge Comments: HEP If there are questions or concerns regarding this patient's physical therapy, please feel free to call me at [phone]. Thank you for the referral of this patient. Sincerely, Winston Sanders, PT, Cert MDT, OCS
== END 2018-10-15 19:00 | disposition home or self-care (01) ==
LOC: PT 14:00
PROVIDERS: Family Provider Internal Medicine; PCP Internal Medicine; Referring Provider Internal Medicine; Visit Provider Internal Medicine
DX: M50.30 Other cervical disc degeneration, unspecified cervical region (principal); M53.82 Other specified dorsopathies, cervical region
CPT/HCPCS: 97110; 97162

== ENCOUNTER 2021-09-05 13:30 | Outpatient (RCR) | payer MEDICARE, BC, SELFPAY ==
--- NOTE | 2021-08-27 13:41 | HP.PTEVAL_ITS ---
Patient's Visit Information GONZÁLEZ LOCK is a 65 year old M referred to Physical Therapy by Dr. Eladia Corley DO with a diagnosis of hip pain and tightness.. Date of Evaluation: 08/27/21 Physical Therapist: Edwin Miller, DPT, OCS, CSCS - Visit Plan Frequency: 1x/Week Duration: 4 Weeks Plan: weekly x 3-4 for. hip flexor stretching and rollouyt as needed. hip strength. next session: if good with hip stretches, show hip stabs and give as HEP:bridge, clamshells, SLR, may rollout and stretch hip flexors if sore. - Subjective Two weeks ago saw dr. Corley and thought PT would be beneficial for his tight adductors. Feels tight in the groin which is what took him to Dr. Corley. He was worried about a hernia. Gets this feeling described as tight pain often. Feels better as he walks. It is made worse by if sitting alot. Feels this tightness R>L but B and is 25% of time. Takes ibuprofen as needed whcih helps. Lying in bed is no problem, sleeping is not interrupted. 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 Basic ADLs are getting done at home. Exercise none. Enjoys hiking and walking which make it feel better. - Pain Groin Pain Intensity (Out of 10): 2 Pain Intensity Range: 0, 4 - Objective Walks normal gait into PT with out antalgia. Trasnfers bed and chair I. Tender to palpation in hip flexor area B hips R>L. Steps reciprocal with one rail and some adduction at femur descending. AROM and PROM at hips WNL except hip flexor tightness is obvious and limiting into extension especially with knees bent. Abduction and rotations are WNL and painfree. strength B hips rotations 3+, abd 3+, ext 3+ and flexion 4- and knee flex/ext 4 B. ankle strength 4+ B. reflexes 2/3 patella and achilles. Sensation LE WNL to gross light touch. - DOMINIQUE, - FADDIR, - hip scour. LB AROM without pain and only slightly limited ext. - Balance/Special Test Scores Lower Extremity Functional Score: 60 - Goals Goal 1:: Tight pain in hips abolioshed. Goal Time Frame: 4-6 Weeks Goal 2:: Pt I appropriate stretches and strengthen for hips Goal Time Frame: 4-6 Weeks Goal 3:: Pt feel 90% better in overallcondition. Goal Time Frame: 4-6 Weeks - Rehabilitation Potential Physical Therapy Diagnosis: Hip pain and tightness causing functional problems with discomfort. Rehabilitation Potential: Fair - Anticipated Interventions Patient/Client Instruction: Educate patient on: Condition, Plan of Care For the Purpose of:: To decrease pain, To increase ROM, To improve muscle performance and motor function Therapeutic Exercise to Include: Strength training, Flexibilty training For the Purpose of:: To decrease pain, To increase ROM, To improve muscle performance and motor function, To increase tolerance to activity/condition/position, To improve ability of physical actions for home/community/work/leisure Thank you for the opportunity to evaluate your patient. For Medicare and Medicare HMO plans, please review the plan of care and approve it. It will need to be FAXED BACK to us at [phone] for Medicare purposes. For Medicare only, by signing this I certify the plan of care. Please let me know if there are questions or concerns regarding this plan of care. Physician Signature: Date:
--- NOTE | 2021-11-30 10:16 | HP.PT.NRP ---
GONZÁLEZ LOCK was seen in my office for initial evaluation on 08/27/21. The following Plan of Care was established for this patient: Initial Frequency: 1x/Week Initial Duration: 4 Weeks Patient/Client Instruction: Educate patient on: Condition, Plan of Care For the Purpose of:: To decrease pain, To increase ROM, To improve muscle performance and motor function Therapeutic Exercise to Include: Strength training, Flexibilty training For the Purpose of:: To decrease pain, To increase ROM, To improve muscle performance and motor function, To increase tolerance to activity/condition/position, To improve ability of physical actions for home/community/work/leisure This patient was last seen in our office 09/05/21. Pertinent comments regarding their Physical therapy will appear below: Pt seen 2 visits of POC and cancelled the last due to the weather. At this point, it has been over 2 months and I will discontinue due to nonattendance. At this point I will be discontinuing this patient from physical therapy. I would be happy to see this patient again in the future if found appropriate by the physician. Thank you! Edwin Miller, DPT, OCS, CSCS Balance/Gait/Functional tests - Balance/Special Test Scores Lower Extremity Functional Score: 60
== END 2021-09-05 19:00 | disposition home or self-care (01) ==
LOC: PT 13:30
PROVIDERS: PCP Internal Medicine; Referring Provider Internal Medicine; Visit Provider Internal Medicine
DX: M25.559 Pain in unspecified hip (principal); M25.659 Stiffness of unspecified hip, not elsewhere classified
CPT/HCPCS: 97110; 97161

== ENCOUNTER 2021-10-31 10:25 | Outpatient (CLI) | payer MEDICARE, BC, SELFPAY ==
--- NOTE | 2021-10-31 10:32 | RAD_ITS ---
STUDY: X-RAY - THORACIC SPINE REASON FOR EXAM: Male, 66 years old. BACK PAIN TECHNIQUE: 4 view(s) of the thoracic spine were obtained. COMPARISON: October 31, 2021 CT angiogram chest FINDINGS: Normal kyphosis of the thoracic spine. There is no substantial scoliosis. There is multilevel endplate spondylosis of the thoracic vertebrae. There is multilevel disc space narrowing of the thoracic spine. The soft tissue structures are unremarkable. RAD/Thoracic Spine 3 Views IMPRESSION: Multilevel degenerative change in the thoracic spine without evidence of acute loss of height or alignment. Electronically Signed: Helen Felipe MD at 5:44 EST Reading Location ID and State: [facility] / [place] Tel , Service support ,
--- NOTE | 2021-10-31 10:32 | RAD_ITS ---
STUDY: X-RAY CHEST REASON FOR EXAM: Male, 66 years old. SHORTNESS OF BREATH TECHNIQUE: PA and lateral views of the chest. COMPARISON: November 06, 2011 chest x-ray FINDINGS: There is persistent elevation of the right hemidiaphragm. There is persistent density within the right lower lobe suggesting probable chronic atelectasis. There is no demonstrated pleural abnormality. There is mild cardiac enlargement. Normal mediastinum and liana. Normal visualized pulmonary arteries. Normal visualized aortic arch and descending thoracic aorta. Normal visualized thoracic spine. Normal visualized ribs, clavicles, and shoulders. There is no demonstrated abnormality of the visualized soft tissue structures of the upper abdomen. RAD/Chest PA and Lateral IMPRESSION: Right lower lobe atelectasis. Cardiomegaly. Chronic elevation of the right hemidiaphragm. Electronically Signed: Helen Felipe MD at 5:45 EST ,
[2021-10-31 11:13] LABS: Absolute Lymphocyte Count 1.17 X10^3/uL (0.83-4.51); Absolute Neutrophil Count 6.1 X10^3/uL (2.0-7.7); Basophil# 0.05 X10^3/uL; Basophil% 0.6 % (0-1); Eosinophil# 0.17 X10^3/uL; Eosinophils% 2.1 % (0-5); Hematocrit 48.7 % (40-54); Hemoglobin 16.4 g/dL (13.0-16.5); Lymphocyte # 1.17 X10^3/ul (0.83-4.51); Lymphocyte % 14.2 % (19-41); Mean Corp Hgb Conc 33.7 g/dL (32-36); Mean Corpuscular Hgb 31.5 pg (27.0-32.0); Mean Corpuscular Volume 93.5 fL (80-94); Mean Platelet Vol. 9.8 fl (6.2-12.0); Monocyte# 0.71 X10^3/uL; Monocyte% 8.6 % (0-10); NRBC Flagged by Analyzer 0 % (0-5); Neutrophil % 74.3 % (47-70); Platelet Count 202 K/mm3 (150-450); RBC Distribution Width CV 13.5 % (11.6-14.6); RBC Distribution Width SD 46.4 fl (35.1-43.9); Red Blood Count 5.21 M/mm3 (4.6-6.2); White Blood Count 8.2 K/mm3 (4.4-11.0)
[2021-10-31 11:35] LABS: D-Dimer Quantitative (DVT/PE) 5.35 FEU/ug/m (0.27-0.49)
[2021-10-31 11:48] LABS: ALB/GLOB Ratio 0.9 RATIO (0.9-2.4); AST(SGOT) 19 U/L (15-37); Alanine Aminotransfer ALT/SGPT 25 U/L (16-61); Albumin, Serum 3.8 g/dL (3.2-5.0); Alkaline Phosphatase 125 U/L (45-117); Anion Gap 7 (5-15); BUN 19 mg/dL (7-18); BUN/Creat Ratio 15.1 RATIO (10-20); Calcium,Total 9.3 mg/dL (8.5-10.1); Chloride 106 mmol/L (98-107); Creatinine, Serum 1.26 mg/dL (0.70-1.30); EST Glomerular Filtration Rate 61 mL/min (>60); Est Glom Filt Rate - Afr Amer 73 mL/min (>60); Globulin 4.2 g/dL (2.2-4.2); Glucose 139 mg/dL (74-106); Potassium 4.1 mmol/L (3.5-5.1); Sodium Level 140 mmol/L (136-145); Troponin-I HS 6 pg/mL (3.0-78.0)
[2021-10-31 11:53] LABS: BNP,B-Type NATRIURETIC PEPTIDE 14.3 pg/mL (0-100)
== END 2021-10-31 23:59 | disposition home or self-care (01) ==
PROVIDERS: PCP Internal Medicine; Referring Provider Internal Medicine; Visit Provider Internal Medicine
DX: R06.02 Shortness of breath (principal); M54.6 Pain in thoracic spine
CPT/HCPCS: 71046; 72072; 80053; 83880; 84484; 85025; 85379

== ENCOUNTER 2021-10-31 12:15 | Outpatient (CLI) | payer MEDICARE, BC, SELFPAY ==
--- NOTE | 2021-10-31 12:21 | CT_ITS ---
STUDY: CTA CHEST REASON FOR EXAM: Male, 66 years old. ELEVATED D DIMER RADIATION DOSAGE (If Supplied By Facility): CTDIvol = ( 13.68 ) mGy, DLP = ( 503.74 ) mGycm TECHNIQUE: The examination was performed with the intravenous administration of IV 100mL Isovue-370. Post-processing of the angiographic images was performed, with multiplanar reformation and 3D reconstruction. Individualized dose optimization techniques were used for this CT. COMPARISON: None. FINDINGS: There are multiple bilateral intraluminal filling defects within the right and left pulmonary arteries and their branches. This is worse in the right hemithorax. There is atherosclerotic calcification of the aortic arch with tortuosity. There is no demonstrated aortic dissection. There are mild calcifications of the coronary arteries. Normal mediastinum. Normal hilar regions. Normal visualized trachea and bronchi. There is elevation of the right hemidiaphragm. Increased markings are seen at the right lung base. This may represent atelectatic changes. Pleural plaque calcification in the left hemithorax with a small left pleural effusion. Normal chest wall structures. There are degenerative changes of thoracic spine. Moderate sized hiatal hernia. The patient is status post cholecystectomy. There is elevation of the right hemidiaphragm. CT/CTA Chest W/WO Contrast IMPRESSION: Multiple bilateral pulmonary emboli worse in the right hemithorax. Elevation of the right hemidiaphragm. Calcified left pleural plaques with a small left pleural effusion. Electronically Signed: Dilip Rutledge MD at 12:53 EST ,
== END 2021-10-31 23:59 | disposition home or self-care (01) ==
PROVIDERS: PCP Internal Medicine; Visit Provider Internal Medicine
DX: R79.89 Other specified abnormal findings of blood chemistry (principal)
CPT/HCPCS: 71275; Q9967; A4216

== ENCOUNTER 2021-10-31 13:04 | Inpatient (IN) | payer MEDICARE, BC, SELFPAY ==
[2021-10-31] VITALS (12 sets, daily range): BP systolic 146–183; BP diastolic 81–93; PULSE 68–95; RESP 18–25; TEMP 36.1–36.8; O2SAT 87–95; BMI 31.5; BMI 31.1
--- NOTE | 2021-10-31 14:04 | EDS_ITS ---
HPI History of Present Illness Chief Complaint: Shortness of Breath Informant: patient Narrative Narrative: Patient sent here from radiology department with positive CAT scan findings of bilateral pulmonary embolism. This is ordered by his PCP. 2 weeks of exertional dyspnea. Denies cough. States that congestion due to seasonal allergies. No fevers or headache. He states that to home Covid testing that were negative. History of hypertension hypercholesterolemia. Denies tobacco history. Denies recent travel, surgeries, or immobilizations. No history of PE or DVT in the past. Presented from triage pulse ox was 87% on room air. He is placed on 2 L of oxygen. Evaluation of CAT scan study noted bilateral pulmonary embolism right greater than left, no saddle embolism noted. No heart strain noted. PE Risk Factors: Negative for Cancer, OCP + Smoking + > 35, Prior DVT or PE, Recent immobilization, Recent surgery, Recent travel and - Prior similar symptoms: No PFSH PFSH Medical History Acid reflux Anxiety Bladder cancer Depression Heart murmur High cholesterol HTN (hypertension) Subcutaneous mass Home Medications amlodipine 5 mg PO DAILY 10/15/13 [History Last Taken 10/31/21] metoprolol succinate 25 mg PO DAILY 10/15/13 [History Last Taken 10/31/21] atorvastatin 80 mg PO DAILY 10/31/21 [History Last Taken 10/31/21] Allergy/AdvReac Type Severity Reaction Status Date / Time No Known Allergies Allergy Verified 10/31/21 13:07 Family History Father Heart disease Grandfather Hypertension Surgical History History of surgical procedure on eye proper using laser S/P bladder tumor excision with fulguration S/P nasal polypectomy S/P tonsillectomy Social History Smoking Status: Never smoker alcohol intake: never ROS ROS ED Constitutional Constitutional ED: Denies chills, fever(s) or sweats Eyes Eyes: Denies change in vision ENT ENT ED: Denies dysphagia or sore throat Cardiovascular Cardiovascular: Denies chest pain, leg edema, palpitations or racing heartbeat Respiratory/Chest Respiratory/Chest: Reports dyspnea and dyspnea on exertion; Denies cough Gastrointestinal Gastrointestinal: Denies abdominal pain, diarrhea, nausea or vomiting Genitourinary Genitourinary ED: Denies dysuria, hematuria or urinary frequency Musculoskeletal Musculoskeletal: Denies back pain, extremity pain or neck pain Integumentary Denies rash or wounds Neurologic Neurologic: Denies headache(s), paresthesias or weakness EXAM Physical Exam Const Vital Signs: 10/31/21 13:05 10/31/21 13:14 10/31/21 13:17 Temperature 98.3 F Temperature Source Temporal Pulse Rate 95 91 Respiratory Rate 18 24 H Respiratory Effort Short of Breath Labored Respiratory Depth Shallow Respiratory Pattern Tachypnea Blood Pressure 183/93 H 147/81 H Blood Pressure Mean 123 103 Pulse Ox 87 94 Oxygen Delivery Method Room Air Nasal Cannula Nasal Cannula Oxygen Flow Rate (L/min) 2 2 10/31/21 13:47 Temperature Temperature Source Pulse Rate Respiratory Rate Respiratory Effort Respiratory Depth Respiratory Pattern Blood Pressure Blood Pressure Mean Pulse Ox Oxygen Delivery Method Nasal Cannula Oxygen Flow Rate (L/min) 2 Positive well nourished and well developed Constitutional Narrative: 2 L nasal cannula no respiratory distress. General Appearance ED: well developed and NAD HEENT Reports moist mucous membranes normocephalic and atraumatic Eyes PERRL, EOMs intact bilaterally and conjunctivae normal General Eye ED: Yes normal appearance of both eyes Neck no lymphadenopathy and supple General: Negative for tenderness Chest Wall Chest: Negative for tenderness Resp normal respiratory effort and normal air movement Effort and Inspection: symmetric chest movement; Negative for respiratory distress Cardio regular rate, regular rhythm and no murmurs Peripheral Pulses: pulses 2+ throughout GI normal to inspection, nondistended, normoactive bowel sounds and non-tender Palpation: Negative for guarding or rebound tenderness present Back/Spine no CVA tenderness and no thoracic nor lumbar tenderness Extremity normal to inspection General Extremety ED: Negative for edema or tenderness General Extremity: Negative for edema Neuro oriented x3 and no sensory deficits noted Sensorium / Orientation: awake and alert Skin no rashes or lesions noted and no wounds MDM MDM MDM Narrative Medical decision making narrative: Patient had laboratory studies with normal white count hemoglobin platelets. D-dimer was 5. Renal functions normal. Added coagulation studies, will check Covid testing and EKG. Will discuss with hospitalist for admission and anticoagulation choice. I discussed with Dr. Spain will do the Lovenox. Patient EKG with new right bundle and left anterior fascicular block. Has no chest pains. This was new compared to an EKG back in 2014. He had a troponin that was negative earlier along with a BNP at 14. He is admitted to PCU. Lab Data Labs: Laboratory Results - last 24 hr 10/31/21 10/31/21 11:09 11:09 PT 13.2 INR 1.1 APTT 31.6 Magnesium 2.1 EKG Initial EKG: Attestation: I personally reviewed and interpreted this EKG as follows: Comments: Sinus rate of 83, no ST changes. T wave versions inferior leads II and aVF. New right bundle branch block, left anterior fascicular block, this is in comparison to EKG in 2014. Discharge Plan Dx/Rx/DC Orders Clinical Impression: Pulmonary embolism, bilateral, Hypoxia, Abnormal EKG Disposition Disposition: Acute Care Hospital [facility] Discharge Date/Time: 10/31/21 15:12
--- NOTE | 2021-10-31 14:07 | EKG12_ITS ---
Test Reason : SOB Blood Pressure : / mmHG Vent. Rate : 083 BPM Atrial Rate : 083 BPM P-R Int : 178 ms QRS Dur : 136 ms QT Int : 404 ms P-R-T Axes : 025 -70 003 degrees QTc Int : 474 ms Normal sinus rhythm Right bundle branch block Left anterior fascicular block Bifascicular block Abnormal ECG Confirmed by KARSTEN BALTAZAR, JOY ([id number]), loan expeditor FARIDA HESS ([id number]) on 11/01/2021 10:21:09 A M Referred By: MENA Confirmed By:HELDER SHELLEY MD
[2021-10-31 14:13] LABS: International Normalized Ratio 1.1; Partial Thromboplast Time 31.6 Seconds (24.1-36.2); Prothrombin Time (Protime)PT. 13.2 SECONDS (11.7-14.9)
--- NOTE | 2021-10-31 14:35 | NURSING ---
DR IRMA HANNA
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
--- NOTE | 2021-10-31 14:44 | NURSING ---
PCU OBS IRMA RICHARD PE, HYPOXIA
[2021-10-31] MEDS: Enoxaparin 120 MG/0.8 ML Syringe SC (15:00)
--- NOTE | 2021-10-31 15:23 | ECHOD_ITS ---
Reason For Study: Pulmonary Embolism Procedure This was a 2D Doppler, Color Flow transthoracic echocardiogram. Exam performed portable in patient room. Left Ventricle Normal LV size. Left ventricular systolic function is hyperdynamic. The estimated ejection fraction is 75 %. Diastolic function is indeterminate. Right Ventricle Normal RV size. Normal systolic function. Atria Normal left atrium. Normal right atrium. No doppler evidence for ASD. Mitral Valve There is no mitral annular calcification. Normal mitral valve. Trivial mitral valve insufficiency. Tricuspid Valve Normal tricuspid valve. Trivial tricuspid valve insufficiency. Right ventricular systolic pressure estimated to be 59 mmHg. Aortic Valve Trisinus/trileaflet aortic valve. Mild diffuse aortic valve thickening. Mild focal aortic valve calcification. Pulmonic Valve The pulmonic valve is not well visualized. Trivial pulmonic valve insufficiency. Great Vessels Normal sized aortic root. Pericardium/Pleural No pericardial effusion. MMode/2D Measurements & Calculations LVIDd: 4.5 cm IVSd: 1.0 cm Ao root diam: 3.5 cm LVIDs: 2.6 cm LVPWd: 1.0 cm RVDd: 4.7 cm FS: 43.2 % LAV(MOD-bp): 46.5 ml LVAd ap4: 28.7 cm2 SV(MOD-sp4): 51.4 ml LAV(MOD-bp) Indexed: 20.9 ml/m2 LVLd ap4: 8.4 cm LAV(MOD-sp2): 46.0 ml EDV(MOD-sp4): 80.3 ml LAV(MOD-sp4): 40.9 ml EDV(sp4-el): 83.0 ml LVAs ap4: 15.0 cm2 LVLs ap4: 7.0 cm ESV(MOD-sp4): 28.9 ml ESV(sp4-el): 27.3 ml EF(MOD-sp4): 64.0 % EF(sp4-el): 67.1 % SV(sp4-el): 55.7 ml LA A4 area: 16.7 cm2 LA dimension(2D): 4.2 cm RA A4 area: 15.8 cm2 Doppler Measurements & Calculations MV E max linwood: 49.4 cm/sec Lat Peak E' Linwood: 12.6 cm/sec Med Peak E' Linwood: 4.4 cm/sec MV A max linwood: 87.9 cm/sec E/E' lat: 3.9 E/E' med: 11.3 MV E/A: 0.56 Ao V2 max: 143.4 cm/sec LV V1 max: 124.9 cm/sec PA V2 max: 107.0 cm/sec Ao max P.2 mmHg LV V1 max P.2 mmHg Ao V2 mean: 102.7 cm/sec Ao mean P.5 mmHg Ao V2 VTI: 28.2 cm TR max linwood: 375.3 cm/sec TR max P.3 mmHg ECHO/Echo Complete Interpretation Summary Left ventricular systolic function is hyperdynamic. The estimated ejection fraction is 75 %. Trivial mitral valve insufficiency. Trivial tricuspid valve insufficiency. Mild diffuse aortic valve thickening. Mild focal aortic valve calcification. Trivial pulmonic valve insufficiency. Right ventricular systolic pressure estimated to be 59 mmHg c/w pulmonary hyper tension. Diastolic function is indeterminate. Ordering Physician: Marcus Spain Referring Physician: Eladia Corley Performed By: Romina Wei, JONAH, RVT
[2021-10-31 16:14] LABS: Magnesium 2.1 mg/dL (1.6-2.6)
[2021-10-31] MEDS: LORazepam 0.5 MG Tablet PO (21:47)
[2021-10-31 22:13] LABS: Bacteria 0 SEEN /hpf (None Seen); Mucous, Urine 0 SEEN /hpf (<or=2+); Red Blood Cells-Urine 0 SEEN /hpf (0-5); Squamous Epithelial Cells - UA 0 SEEN /hpf (0-5); White Blood Cells 0 SEEN /hpf (0-5)
[2021-10-31 22:26] LABS: Color, Urine Yellow (Yellow); Glucose, Dipstick Normal (Normal); Ketone-Dipstick 5 mg/dl (Negative); Leukocyte Esterase-Dipstick Negative /ul (Negative); Nitrite-Dipstick Negative (Negative); Occult Blood-Urine Negative /ul (Negative); Protein-Dipstick 15 mg/dl (Negative); Specific Gravity, Urine 1.015 (1.002-1.030); Urine Bilirubin Dipstick Negative (Negative); Urine Clarity Clear (Clear); Urine Urobilinogen Normal (Normal); Urine pH 6.5 (5.0 - 8.0)
[2021-11-01] VITALS (11 sets, daily range): BP systolic 127–137; BP diastolic 73–82; PULSE 60–81; RESP 18–20; TEMP 36.1–36.9; O2SAT 86–95
[2021-11-01] MEDS: Enoxaparin 100 MG/ML Syringe SC (01:45)
[2021-11-01 06:43] LABS: Absolute Lymphocyte Count 1.16 X10^3/uL (0.83-4.51); Absolute Neutrophil Count 6.2 X10^3/uL (2.0-7.7); Basophil# 0.04 X10^3/uL; Basophil% 0.5 % (0-1); Eosinophil# 0.17 X10^3/uL; Hematocrit 44.9 % (40-54); Hemoglobin 15.4 g/dL (13.0-16.5); Lymphocyte # 1.16 X10^3/ul (0.83-4.51); Lymphocyte % 13.7 % (19-41); Mean Corp Hgb Conc 34.3 g/dL (32-36); Mean Corpuscular Volume 93.2 fL (80-94); Mean Platelet Vol. 9.9 fl (6.2-12.0); Monocyte# 0.86 X10^3/uL; Monocyte% 10.2 % (0-10); NRBC Flagged by Analyzer 0 % (0-5); Neutrophil # 6.21 X10^3/uL (2.7-7.7); Neutrophil % 73.2 % (47-70); Platelet Count 178 K/mm3 (150-450); RBC Distribution Width CV 13.5 % (11.6-14.6); RBC Distribution Width SD 45.8 fl (35.1-43.9); Red Blood Count 4.82 M/mm3 (4.6-6.2); White Blood Count 8.5 K/mm3 (4.4-11.0)
[2021-11-01 07:58] LABS: Anion Gap 6 (5-15); BUN 19 mg/dL (7-18); BUN/Creat Ratio 16.7 RATIO (10-20); Calcium,Total 8.6 mg/dL (8.5-10.1); Chloride 105 mmol/L (98-107); Creatinine, Serum 1.14 mg/dL (0.70-1.30); EST Glomerular Filtration Rate 68 mL/min (>60); Est Glom Filt Rate - Afr Amer 82 mL/min (>60); Estimated Creatinine Clearance 66.97 ml/min; Glucose 96 mg/dL (74-106); Potassium 4.2 mmol/L (3.5-5.1); Sodium Level 138 mmol/L (136-145); Thyroid Stim Hormone (TSH) 1.58 uIU/mL (0.358-3.74)
[2021-11-01] MEDS: APIXABAN 5 MG TABLET 10 MG PO (09:25)
[2021-11-01] MEDS: Metoprolol(XL)Succ 25 MG Tablet PO (09:26)
[2021-11-01] MEDS: amLODIPine 5 MG Tablet PO (09:26)
--- NOTE | 2021-11-01 09:46 | PCM.DC ---
Discharge Instructions Diet Discharge Diet: Low fat / Low cholesterol Activity Discharge Activity: Return to Normal Activity Dressing / Incision Call your doctor if you observe: Fever of 101 or Higher, Shortness of breath, Dizziness, Fainting spells, Swelling in the ankles, Chest pain and Increased palpitations (irregular heartbeat) Follow Up Care Test Results: Test results from this visit will be discussed in further detail at your follow-up appointment, if applicable. Discharge Plan Admission Admit Date/Time: 10/31/21 16:54 Attending Provider: Bubba Cunningham Primary Care Provider: Eladia Corley Discharge Orders/Prescriptions Prescriptions: New Eliquis 5 mg Tablet 10 mg PO BID Qty: 90 RF: 0 Continued amlodipine 5 MG tablet 5 mg PO DAILY RF: 0 metoprolol succinate 25 MG tablet 25 mg PO DAILY RF: 0 atorvastatin 80 mg tablet 80 mg PO DAILY RF: 0 Referrals / Follow Up: Eladia Corley DO [Primary Care Provider] - Within 1 Week Christiano Mccoy MD [STAFF PHYSICIAN] - Within 3 Months Disposition Disposition (needs filled in before D/C Order can be placed): Home, Self Care
--- NOTE | 2021-11-01 10:10 | CASEMGMT ---
AMARA HAWTHORNE assessment: Face to Face with patient for initial transition planning/care coordination assessment. RN MARINE introduced self and role at [facility], pt voices understanding and consents to assessment. Pt is sitting up in bed in no distress on 2L nc. Pt is A/Ox4 and answers all questions appropriately. Pt's is at bedside during assessment and pt/ state pt has a lot of anxiety. This RN MARINE answered multiple questions for pt/ and offered emotional support. Care providers, pharmacy, and demographics verified. Presentation: Pt had OP CTA showing bilat PE's, c/o intermittent SOB, fall 1 week ago Admitting dx: PE w/ hypoxia PCP: Barney Specialists: venu Fernandes Preferred Pharmacy: [facility] Insurance: [facility] A/B, [place] Prescription Benefit: [employer] Living Will/HPOA: Pt does not have LW/HPOA on file at [facility]. LNOK: Criss Pettit, Living Arrangements: Pt lives with in 1 story home with basement and states no concerns at home. Pt is independent w/ ADL's. Transportation: Pt drives self and states no transportation concerns. DME/HHC: Pt has a pulse oximeter at home and states no need for any further DME. Pt does qualify for 2L w/ exertion and after provided list of local DME companies, pt's picked [employer]. Pt has not hx of HHC or SNF in past. Pt/ state no concerns with going home at time of discharge. 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 Pt states does not smoke cigarettes or drink ETOH. Pt voices multiple questions and this AMARA HAWTHORNE answered. CM to follow for Eliquis co-pay and any further discharge planning/needs. Advised pt to ask for CM if any further questions/concerns/needs arise, voices understanding. Pt Goal: Home Plan: Home w/ home [place]2 [place] AMARA HAWTHORNE
--- NOTE | 2021-11-01 10:45 | CASEMGMT ---
Addendum entered by Emmie Moon 11/01/21 14:01: Call back to [facility] and per tech, pt's co-pay for 90 day supply is $564. Pt/ updated and already provided Eliquis 30 day free trial card previously. Per , they have $450 deductible. Pt/ aware that they may only be able to get a months worth of tabs(74) with coupon card, voice understanding. Pt/ voice no further questions/concerns/needs. Scott MALONEY CM Addendum entered by Emmie Moon 11/01/21 12:07: Call to Laura at [facility] to notify of order and pt discharge/need for e-tank, voices understanding. This RN CM back to room to go over all with pt, voices understanding and questions answered. Scott MALONEY CM Addendum entered by Emmie Moon 11/01/21 11:39: Call to [facility] to check on co-pay and per pharmacist, 'We are busy, call back later.' CM to follow. Scott MALONEY CM Original Note: Pt qualifies for 2L w/ exertion home oxygen and script faxed to [facility] at this time. CM to follow for Eliquis co-pay. Scott MALONEY CM
--- NOTE | 2021-11-01 11:27 | DS.PCM_ITS ---
Providers Date of Admission: 10/31/21 Primary Care Physician: Dr. Eladia Corley, DO Reason For Visit: PE WITH HYPOXIA Medications at Discharge Home Medications amlodipine 5 mg PO DAILY 10/15/13 metoprolol succinate 25 mg PO DAILY 10/15/13 atorvastatin 80 mg PO DAILY 10/31/21 apixaban [Eliquis] 10 mg PO BID #90 tab 11/01/21 Hospital Course Operations None Procedures 2-D Echocardiogram Summary of Care Provided Minutes Spent on Discharge: 41 Hospital Course: Per HPI: GONZÁLEZ LOCK, is a 66 M who saw his PCP today with 2 weeks of exertional dyspnea. He gets winded very dyspneic on climbing a flight of stairs change from his baseline last 2 weeks. No fever or chills. No cough. Denies chest pain tightness/pressure. The patient went to see his PCP and had CTPA done with reported multiple bilateral pulmonary embolism, right more than left, elevated right hemidiaphragm, calcified left pleural plaque with small left pleural effusion.. Patient found hypoxic in ED ED vitals shows elevated blood pressure 183/93, respiratory rate 24, pulse ox 94% on 2 L of oxygen. He does not have history of smoking or COPD or other chronic lung disease. No fever or headache. Twelve-lead EKG shows normal sinus rhythm, RBBB, LAFB 83 beats per 1, QTC 474 ms, QRS 136 ms. This is changed from the previous old EKG October 15, 2013 which shows sinus bradycardia at 53 beats per. No RBBB or LAFB at that time. Patient is started on Lovenox 1 mg/kg body weight every 12 hourly in ED and further admitted. Hospital Course: 1. Acute hypoxic respiratory failure secondary to bilateral pulmonary embolisms and pulmonary hypertension?66-year-old male presented to the hospital with several weeks of shortness of breath. His PCP had sent him up with an outpatient stress test as well as a CTA of the chest. The CTA was done first which demonstrated bilateral pulmonary embolism so he was admitted to the hospital. He had an echo which demonstrated an elevated RVSP of 59 mmHg consistent with pulmonary hypertension likely result of his pulmonary embolisms. He denies any shortness of breath today and denies any chest pain. He did ambulate and needed about 2 L of oxygen with ambulation but is doing fine at rest. He was transitioned to Eliquis this morning and has tolerated this just fine. I discussed with him the possibility of either staying for another day or 2 to see if we can get him off of oxygen completely with ambulation versus going home today. He decided that he would like to go home today while on oxygen. I discussed the discharge plan with both him and his and they both expressed understanding of the risk benefits of going home today and he would still like to go home. I discussed with him that he needs to follow-up with his PCP in 3 to 5 days and also recommend he follow-up with hematology as an outpa tient. 2. Hypertension, hyperlipidemia chronic medical conditions which complicate his care. His home medications were continued where appropriate Physical Exam Const alert, oriented x3 and no apparent distress General Appearance: cooperative HEENT normocephalic and moist oral mucous membranes Eyes PERRL, EOMs intact bilaterally and conjunctivae normal Neck supple and no JVD Resp normal respiratory effort, no retractions, no use of accessory muscles and clear to auscultation bilaterally Auscultation: Negative for crackles, rales, rhonchi or wheezes Cardio regular rate, regular rhythm, S1 normal heart sound, S2 normal heart sound and no murmurs GI soft to palpation, non-tender and non-distended; Negative for hepatosplenomegaly Extremity no clubbing, cyanosis or edema Skin no rashes or lesions noted Neuro no focal motor deficits and no sensory deficits noted Psych affect normal Appearance: appropriate Weight / BMI Weight Weight: 221 lb 5.506 oz Body Mass Index (BMI) 31.1 ABG / Lab / Microbiology Data Result Diagrams: 11/01/21 05:51 11/01/21 05:51 Laboratory: Laboratory Results - last 24 hr 10/31/21 11:09: PT 13.2, INR 1.1, APTT 31.6 10/31/21 11:09: Magnesium 2.1 10/31/21 22:03: Urine Color Yellow, Urine Clarity Clear, Urine pH 6.5, Ur Specific [place] 1.015, Urine Protein 15 H, Urine Glucose (UA) Normal, Urine Ketones 5 H, Urine Occult Blood Negative, Urine Nitrite Negative, Urine Bilirubin Negative, Urine Urobilinogen Normal, Ur Leukocyte Esterase Negative, Urine RBC 0 SEEN, Urine WBC 0 SEEN, Ur Squamous Epith Cells 0 SEEN, Urine Bacteria 0 SEEN, Urine Mucus 0 SEEN 11/01/21 05:51: WBC 8.5, RBC 4.82, Hgb 15.4, Hct 44.9, MCV 93.2, MCH 32.0, MCHC 34.3, RDW Std Deviation 45.8 H, RDW Coeff of Marianela 13.5, Plt Count 178, MPV 9.9, Immature Gran % (Auto) 0.400, Neut % (Auto) 73.2 H, Lymph % (Auto) 13.7 L, [place] % (Auto) 10.2 H, Eos % (Auto) 2.0, Baso % (Auto) 0.5, Absolute Neuts (auto) 6.2, Absolute Lymphs (auto) 1.16, Nucleated RBC % 0 11/01/21 05:51: Sodium 138, Potassium 4.2, Chloride 105, Carbon Dioxide 27.0, Anion Gap 6, BUN 19 H, Creatinine 1.14, Estim Creat Clear Calc 66.97, Est GFR (MDRD) Af Amer 82, Est GFR (MDRD) Non-Af 68, BUN/Creatinine Ratio 16.7, Glucose 96, Calcium 8.6, TSH 1.58 Microbiology: Microbiology 10/31/21 13:55 Nasal Secretion SARS-CoV-2 Antigen (Rapid) - Final Radiography Diagnostic Testing: Radiology Impression Echocardiogram 10/31/21 15:23 Interpretation Summary Left ventricular systolic function is hyperdynamic. The estimated ejection fraction is 75 %. Trivial mitral valve insufficiency. Trivial tricuspid valve insufficiency. Mild diffuse aortic valve thickening. Mild focal aortic valve calcification. Trivial pulmonic valve insufficiency. Right ventricular systolic pressure estimated to be 59 mmHg c/w pulmonary hypertension. Diastolic function is indeterminate. Ordering Physician: Marcus Spain Referring Physician: Eladia Corley Performed By: Romina Wei, JONAH, RVT D/C Instructions Discharge Diet: Low fat / Low cholesterol Call your doctor if you observe: Fever of 101 or Higher, Shortness of breath, Dizziness, Fainting spells, Swelling in the ankles, Chest pain and Increased palpitations (irregular heartbeat) Meaningful Use Info Meaningful Use Diagnoses (Choose all that apply): None applicable Discharge Plan Admission Admit Date/Time: 10/31/21 16:54 Attending Provider: Bubba Cunningham Primary Care Provider: Eladia Corley Discharge Orders/Prescriptions Prescriptions: New Eliquis 5 mg Tablet 10 mg PO BID Qty: 90 RF: 0 Continued amlodipine 5 MG tablet 5 mg PO DAILY RF: 0 metoprolol succinate 25 MG tablet 25 mg PO DAILY RF: 0 atorvastatin 80 mg tablet 80 mg PO DAILY RF: 0 Referrals / Follow Up: Eladia Corley DO [Primary Care Provider] - Within 1 Week Christiano Mccoy MD [STAFF PHYSICIAN] - Within 3 Months Disposition Disposition (needs filled in before D/C Order can be placed): Home, Self Care Charges/Coding Visit Charges Inpatient E&M: 78736 Disch Hosp
--- NOTE | 2021-11-01 13:54 | NURSING ---
STUDENT NURSE Holly LOPEZ CHARTING REVIEWED BY THIS RN.
== END 2021-11-01 15:04 | disposition home or self-care (01) | DRG 175 ==
LOC: ED 14:44 → PCU 14:58
PROVIDERS: Admitting Provider Internal Medicine; Emergency Provider Emergency Medicine; PCP Internal Medicine; Visit Provider Family Medicine
DX: I26.99 Other pulmonary embolism without acute cor pulmonale (principal); J96.01 Acute respiratory failure with hypoxia; I45.2 Bifascicular block; I27.20 Pulmonary hypertension, unspecified; E78.5 Hyperlipidemia, unspecified; I10 Essential (primary) hypertension; K21.9 Gastro-esophageal reflux disease without esophagitis; M54.6 Pain in thoracic spine; Z79.899 Other long term (current) drug therapy; R22.2 Localized swelling, mass and lump, trunk; R06.02 Shortness of breath; R79.89 Other specified abnormal findings of blood chemistry
CPT/HCPCS: 36415; 71046; 71275; 72072; 80048; 80053; 81001; 83735; 83880; 84443; 84484; 85025; 85379; 85610; 85730; 87426; 93005; 93306; 99251; 99284; Q9967; A4216; G0463

== ENCOUNTER 2021-11-20 16:30 | Outpatient (CLI) | payer MEDICARE, BC, SELFPAY ==
--- NOTE | 2021-11-20 | CYSPIN_PTH ---
PATIENT: GONZÁLEZ LOCK LOC: [facility] U#:[id number] AGE/SX: 66/M ROOM: RE11/20/[address]: Dr. Heath Fernandes MD : [id number] BED: DIS: 11/20/2021 SPEC #: [id number] RECD: 11/21/21 09:24 STATUS: RAFA REKari #: [id number] JUAN: 11/20/21 00:[address]: Heath Fernandes DEPT: CYTOLOGY RECD BY: James Daniel ENTERED: 11/21/21 09:24 SP TYPE: CYSPIN FL OTHR DR: Dr. 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 AM:berna 11/21/2021 COMMENT Reference is made to the patient's previous urinary bladder, TUR from 2013 ([id number]) in which low-grade urothelial carcinoma was identified. Case has been reviewed in consultation with Dr. Wright who concurs with the above diagnosis. IDC:SJ CYTOLOGY STUDY Slides are reviewed. CYTOLOGY GROSS Received is 50 ml of light yellow cloudy fluid labeled with the patient's name and and designated per the requisition as urine. Submitted for cytology preparation. / berna 11/20/2021 TC:0 CPT: 32491
[2021-11-20 17:26] LABS: Cytology, Body Fluid / CSF SEE PATHOLOGY REPORT
== END 2021-11-20 23:59 | disposition home or self-care (01) ==
LOC: LABSPEC 16:32
PROVIDERS: PCP Internal Medicine; Referring Provider Urology; Visit Provider Urology
DX: C67.4 Malignant neoplasm of posterior wall of bladder (principal)
CPT/HCPCS: 88108; 88313

== ENCOUNTER 2021-12-06 14:21 | Emergency (ER) | payer MEDICARE, BC, SELFPAY ==
[2021-12-06 14:22] VITALS: BP 171/89; PULSE 76; RESP 16; TEMP 36.6; O2SAT 97; BMI 30.9
[2021-12-06 16:01] LABS: Absolute Lymphocyte Count 1.16 X10^3/uL (0.83-4.51); Absolute Neutrophil Count 5.5 X10^3/uL (2.0-7.7); Basophil# 0.06 X10^3/uL; Basophil% 0.8 % (0-1); Eosinophil# 0.35 X10^3/uL; Eosinophils% 4.5 % (0-5); Hematocrit 49.9 % (40-54); Hemoglobin 17.1 g/dL (13.0-16.5); Lymphocyte # 1.16 X10^3/ul (0.83-4.51); Lymphocyte % 14.8 % (19-41); Mean Corp Hgb Conc 34.3 g/dL (32-36); Mean Corpuscular Hgb 31.9 pg (27.0-32.0); Mean Corpuscular Volume 93.1 fL (80-94); Mean Platelet Vol. 9.5 fl (6.2-12.0); Monocyte# 0.76 X10^3/uL; Monocyte% 9.7 % (0-10); NRBC Flagged by Analyzer 0 % (0-5); Neutrophil # 5.49 X10^3/uL (2.7-7.7); Neutrophil % 69.9 % (47-70); Platelet Count 225 K/mm3 (150-450); RBC Distribution Width CV 13.2 % (11.6-14.6); RBC Distribution Width SD 44.7 fl (35.1-43.9); Red Blood Count 5.36 M/mm3 (4.6-6.2); White Blood Count 7.8 K/mm3 (4.4-11.0)
[2021-12-06 16:25] LABS: Anion Gap 4 (5-15); BUN 23 mg/dL (7-18); BUN/Creat Ratio 17.2 RATIO (10-20); Calcium,Total 9.4 mg/dL (8.5-10.1); Chloride 105 mmol/L (98-107); Creatinine, Serum 1.34 mg/dL (0.70-1.30); EST Glomerular Filtration Rate 57 mL/min (>60); Est Glom Filt Rate - Afr Amer 68 mL/min (>60); Estimated Creatinine Clearance 56.97 ml/min; Glucose 115 mg/dL (74-106); Potassium 4.4 mmol/L (3.5-5.1); Sodium Level 139 mmol/L (136-145)
--- NOTE | 2021-12-06 17:29 | EKG12_ITS ---
Test Reason : EDEMA Blood Pressure : / mmHG Vent. Rate : 063 BPM Atrial Rate : 063 BPM P-R Int : 180 ms QRS Dur : 144 ms QT Int : 448 ms P-R-T Axes : 032 -26 018 degrees QTc Int : 458 ms Sinus rhythm with occasional Premature ventricular complexes Right bundle branch block Abnormal ECG Confirmed by MEL BALTAZAR, AMADOU ([id number]), editorial project manager FARIDA HESS ([id number]) on 12/10/2021 10:34:23 AM Referred By: LORIN Confirmed By:AMADOU LEAL MD
--- NOTE | 2021-12-06 17:30 | EDS_ITS ---
HPI History of Present Illness Chief Complaint: Edema Informant: patient Onset/Context/Timing Onset: Days Context: Gradual Onset Timing: Continuous Current Severity: Mild Maximum Severity: Mild Narrative Narrative: 59-year-old male history of recent pulmonary emboli on October 31. Also history of hypertension. In October was admitted to hospital for day discharged home with the anticoagulant Eliquis. Has been doing well. Says he noticed swelling in his feet in the last 1 to 2 days. Denies any chest pain, shortness of breath or difficulty urinating. Prior similar symptoms: No Recent Illness/Hospitalization: [facility] Medical History (Updated 12/06/21 @ 17:[address] Ming Barry MD) Acid reflux Anxiety Bladder cancer Depression Heart murmur High cholesterol HTN (hypertension) Subcutaneous mass Home Medications amlodipine 10 mg PO DAILY 10/15/13 [History Last Taken 10/31/21] metoprolol succinate 25 mg PO DAILY 10/15/13 [History Last Taken 10/31/21] atorvastatin 80 mg PO DAILY 10/31/21 [History Last Taken 10/31/21] apixaban [Eliquis] 5 mg PO BID 12/06/21 [History Last Taken Unknown] Allergy/AdvReac Type Severity Reaction Status Date / Time No Known Allergies Allergy Verified 12/06/21 14:24 Family History Father Heart disease Grandfather Hypertension Surgical History History of surgical procedure on eye proper using laser S/P bladder tumor excision with fulguration S/P nasal polypectomy S/P tonsillectomy Social History Smoking Status: Never smoker alcohol intake: never ROS ROS ED ROS Narrative Denies. Review of Systems ROS Unobtainable: Denies due to encephalopathy Constitutional Constitutional ED: Denies fever(s) Eyes Eyes: Denies change in vision ENT ENT ED: Denies ear pain Cardiovascular Cardiovascular: Denies chest pain Respiratory/Chest Respiratory/Chest: Denies dyspnea Gastrointestinal Gastrointestinal: Denies abdominal pain Genitourinary Genitourinary ED: Denies dysuria Musculoskeletal Musculoskeletal: Denies myalgias Integumentary Denies rash Neurologic Neurologic: Denies headache(s) Psychiatric Psychiatric: Denies depression Endocrine Endocrinology: Denies polyuria Allergic/Immunologic Allergic/Immunologic ED: Denies urticaria EXAM Physical Exam Narrative Exam Narrative: 66-year-old male no acute distress vital signs stable afebrile. Pulse 76. Pulse oximeter 97% on room air no signs hypoxia. H EENT exam unremarkable. Neck nontender no JVD. Lungs are clear equal symmetrical bilaterally. Heart regular rate and rhythm rate about 80 no murmur. Abdomen soft nontender. Moving all 4 extremities. Trace edema both ankles and feet. Calves are nontender without cords. Neurologically is awake and alert with no focal motor deficits. Const Vital Signs: 12/06/21 14:22 Temperature 97.8 F Temperature Source Temporal Pulse Rate 76 Respiratory Rate 16 Blood Pressure 171/89 H Blood Pressure Mean 116 Pulse Ox 97 Oxygen Delivery Method Room Air Positive well nourished and well developed; Negative for cachectic, contractures or unkempt General Appearance ED: well developed and NAD; Negative for unkempt, cachectic, contractures, cyanotic or diaphoretic Nutritional Appearance: Negative for cachectic HEENT Reports moist mucous membranes Negative for trauma or tenderness Eyes PERRL and EOMs intact bilaterally Neck no lymphadenopathy, supple and no JVD General: Negative for tenderness Chest Wall inspection of chest normal and palpation of chest normal Resp normal respiratory effort and clear to auscultation bilaterally Auscultation: Negative for rales or rhonchi Cardio regular rate, regular rhythm, S1 normal heart sound, S2 normal heart sound and no murmurs GI normal to inspection, nondistended, normoactive bowel sounds, non-tender and non-distended Palpation: soft Back/Spine no CVA tenderness General Back: Negative for CVA tenderness Cervical Spine: Negative for cervical spine tenderness Extremity normal to inspection Extremity Narrative: Trace bilateral lower extremity edema equal symmetrical. Calves are nontender without cords. General Extremety ED: Yes edema; Negative for tenderness General Extremity: edema Neuro oriented x3 Sensorium / Orientation: alert; Negative for orientation impaired, lethargic or stuporous Motor Exam: strength 5/5 throughout Psych mental status grossly normal Appearance: Negative for unkempt Skin no rashes or lesions noted and no wounds MDM MDM MDM Narrative Medical decision making narrative: 66-year-old male sent in for bilateral lower extremity edema. Very mild. Exam benign. Patient doing well at 5:45 PM will be discharged home. Outpatient follow-up with his primary care physician. Lab Data Attestation: I reviewed the patient's lab results. Lab results narrative: White count 7 H&H 17 and 49. Electrolytes unremarkable gap of 4 BUN of 23 creatinine 1.34. Glucose 115. Patient has mild renal insufficiency compared to prior. EKG was unremarkable. Labs: Laboratory Results - last 24 hr 12/06/21 12/06/21 15:55 15:55 WBC 7.8 RBC 5.36 Hgb 17.1 H Hct 49.9 MCV 93.1 MCH 31.9 MCHC 34.3 RDW Std Deviation 44.7 H RDW Coeff of Marianela 13.2 Plt Count 225 MPV 9.5 Immature Gran % (Auto) 0.300 Neut % (Auto) 69.9 Lymph % (Auto) 14.8 L [place] % (Auto) 9.7 Eos % (Auto) 4.5 Baso % (Auto) 0.8 Absolute Neuts (auto) 5.5 Absolute Lymphs (auto) 1.16 Nucleated RBC % 0 Sodium 139 Potassium 4.4 Chloride 105 Carbon Dioxide 30.0 Anion Gap 4 L BUN 23 H Creatinine 1.34 H Estim Creat Clear Calc 56.97 Est GFR (MDRD) Af Amer 68 Est GFR (MDRD) Non-Af 57 L BUN/Creatinine Ratio 17.2 Glucose 115 H Calcium 9.4 Rhythm Strip Rhythm Strip: Sinus Rhythm Rate: 63 Ectopy: PVC(s) EKG Initial EKG: Attestation: I personally reviewed and interpreted this EKG as follows: Interpretation: Sinus Rhythm and No Acute Injury Pattern Comments: Normal sinus rhythm rate of 60... No acute signs of MS no ischemia. Occasional PVCs. Discharge Plan Triage Chief Complaint: Edema ED Provider: Ming Barry Dx/Rx/DC Orders Clinical Impression: Mild peripheral edema Instructions: ED Peripheral Edema, Bilateral Prescriptions: No Action amlodipine 5 MG tablet 10 mg PO DAILY RF: 0 metoprolol succinate 25 MG tablet 25 mg PO DAILY RF: 0 atorvastatin 80 mg tablet 80 mg PO DAILY RF: 0 Eliquis 5 mg tablet 5 mg PO BID RF: 0 Primary Care Provider: Eladia Corley Referrals: Eladia Corley DO [Primary Care Provider] - 1 Week if not improving Activity Restrictions/Additional Instructions: Elevate your legs to decrease swelling. Do not immerse salt does not make you retain water. Follow-up with your doctor in 1 week if not improving. Disposition Disposition: Home, Self Care
== END 2021-12-06 18:15 | disposition home or self-care (01) ==
PROVIDERS: Emergency Provider Emergency Medicine; PCP Internal Medicine; Visit Provider Emergency Medicine
DX: R60.0 Localized edema (principal); I10 Essential (primary) hypertension; E78.00 Pure hypercholesterolemia, unspecified; Z79.01 Long term (current) use of anticoagulants; Z86.711 Personal history of pulmonary embolism; Z79.899 Other long term (current) drug therapy
CPT/HCPCS: 80048; 85025; 93005; 99283; A4216

== ENCOUNTER 2021-12-11 14:33 | Outpatient (CLI) | payer MEDICARE, BC, SELFPAY ==
[2021-12-11 18:02] LABS: BNP,B-Type NATRIURETIC PEPTIDE 17.7 pg/mL (0-100)
== END 2021-12-11 23:59 | disposition home or self-care (01) ==
PROVIDERS: PCP Internal Medicine; Referring Provider Internal Medicine Pulmonary Disease; Visit Provider Internal Medicine Pulmonary Disease
DX: R06.02 Shortness of breath (principal); I27.20 Pulmonary hypertension, unspecified
CPT/HCPCS: 36415; 83880

== ENCOUNTER 2021-12-19 12:39 | Outpatient (CLI) | payer MEDICARE, BC, SELFPAY ==
--- NOTE | 2021-12-19 12:51 | VDLE_ITS ---
Reason For Study: Pain/Swelling RIGHT LEFT GSV is normal. CFV is compressible, spontaneous, phasic, CFV is compressible, spontaneous, phasic, competent, and demonstrates normal competent and demonstrates normal augmentation. augmentation. FV is compressible, spontaneous, phasic, FV is compressible, spontaneous, phasic, competent and demonstrates normal competent and demonstrates normal augmentation. augmentation. POP V is compressible, spontaneous, phasic, POP V is compressible, spontaneous, phasic, competent and demonstrates normal competent and demonstrates normal augmentation. augmentation. T/P Trunk is compressible. T/P Trunk is compressible. PTV is compressible. PTV is compressible. LT PerV is compressible. RT PerV is compressible. Lt GastrocV is partially compressible with Procedure intermediate thrombus noted This is a venous duplex using B-mode, color flow and spectral Doppler. Lt GSV is partially compressible with bright Exam performed in department. intraluminal echoes consistent with chronic A preliminary report was called and/or faxed SVT. to Nicolle MALONEY. 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 The remainder of the left lower extr emity deep venous system is patent and compressible. Deep veins of the right lower extremity are patent and compressible segmentally. There is no evidence of right lower extremity deep ve in thrombosis. Valvular competence appears intact within the proximal deep venous systems bila terally. The right great saphenous vein appears patent and compressible segmentally. Chronic venou s changes are noted in the left great saphenous vein, which is partially compressible and demonstra yas bright intraluminal echogenicity. Ordering Physician: Lowell Abdullahi Referring Physician: Eladia Corley Performed By: Romina Wei, JONAH, RVT
== END 2021-12-19 23:59 | disposition home or self-care (01) ==
LOC: CVS 12:40
PROVIDERS: PCP Internal Medicine; Visit Provider Internal Medicine Pulmonary Disease
DX: I26.09 Other pulmonary embolism with acute cor pulmonale (principal); M79.89 Other specified soft tissue disorders
CPT/HCPCS: 93970

== ENCOUNTER 2021-12-25 12:49 | Outpatient (CLI) | payer MEDICARE, BC, SELFPAY ==
--- NOTE | 2021-12-25 12:53 | ECHOD_ITS ---
Reason For Study: PHTN Procedure This was a 2D Doppler, Color Flow transthoracic echocardiogram. The exam was of adequate technical quality. Exam performed in department. Left Ventricle Normal LV size. Left ventricular systolic function is normal. The estimated ejection fraction is 70 %. Diastolic function is indeterminate. No regional wall motion abnormalities noted. Right Ventricle Normal RV size. Normal systolic function. Atria Normal left atrium. Normal right atrium. No doppler evidence for ASD. Mitral Valve There is no mitral annular calcification. Normal mitral valve. Trivial mitral valve insufficiency. Tricuspid Valve Normal tricuspid valve. Mild tricuspid valve insufficiency. Right ventricular systolic pressure estimated to be 38 mmHg. Aortic Valve Trisinus/trileaflet aortic valve. Mild focal aortic valve calcification. Pulmonic Valve The pulmonic valve is not well visualized. Mild (1+) pulmonic valve insufficiency. Great Vessels Normal sized aortic root. Pericardium/Pleural No pericardial effusion. MMode/2D Measurements & Calculations LVIDd: 5.1 cm IVSd: 1.2 cm Ao root diam: 3.5 cm LVIDs: 2.8 cm LVPWd: 1.1 cm RVDd: 3.9 cm FS: 44.8 % LAV(MOD-bp): 55.4 ml LVAd ap4: 28.3 cm2 LVAd ap2: 29.9 cm2 LAV(MOD-bp) Indexed: 25.1 ml/m2 LVLd ap4: 8.6 cm LVLd ap2: 9.0 cm LAV(MOD-sp2): 51.8 ml EDV(MOD-sp4): 78.2 ml EDV(MOD-sp2): 84.0 ml LAV(MOD-sp4): 59.1 ml EDV(sp4-el): 79.2 ml EDV(sp2-el): 84.1 ml LVAs ap4: 13.8 cm2 LVAs ap2: 14.4 cm2 LVLs ap4: 6.8 cm LVLs ap2: 7.0 cm ESV(MOD-sp4): 26.6 ml ESV(MOD-sp2): 27.4 ml ESV(sp4-el): 23.9 ml ESV(sp2-el): 25.0 ml EF(MOD-sp4): 66.0 % EF(MOD-sp2): 67.3 % EF(sp4-el): 69.9 % SV(MOD-sp4): 51.6 ml SV(MOD-sp2): 56.6 ml SV(sp4-el): 55.4 ml LA dimension(2D): 5.3 cm LA A4 area: 22.1 cm2 RA A4 area: 18.0 cm2 Time Measurements MV dec time: 0.20 sec Doppler Measurements & Calculations MV E max linwood: 68.1 cm/sec Lat Peak E' Linwood: 14.8 cm/sec Med Peak E' Linwood: 6.0 cm/sec MV A max linwood: 87.3 cm/sec E/E' lat: 4.6 E/E' med: 11.3 MV E/A: 0.78 Ao V2 max: 153.0 cm/sec LV V1 max: 96.2 cm/sec PA V2 max: 102.5 cm/sec Ao max P.4 mmHg LV V1 max P.7 mmHg TR max linwood: 296.1 cm/sec TR max P.1 mmHg ECHO/Echo Complete Interpretation Summary Left ventricular systolic function is normal. The estimated ejection fraction is 70 %. Trivial mitral valve insufficiency. Mild tricuspid valve insufficiency. Mild focal aortic valve calcification. Mild (1+) pulmonic valve insufficiency. Right ventricular systolic pressure estimated to be 38 mmHg. Diastolic function is indeterminate. Ordering Physician: Gómez Tipton Referring Physician: Lowell Abdullahi V Performed By: Saloni Crenshaw, JONAH, RVT
== END 2021-12-25 23:59 | disposition home or self-care (01) ==
LOC: CVS 12:51
PROVIDERS: PCP Internal Medicine; Referring Provider Internal Medicine Pulmonary Disease; Visit Provider Internal Medicine Pulmonary Disease
DX: Z01.810 Encounter for preprocedural cardiovascular examination (principal); I26.99 Other pulmonary embolism without acute cor pulmonale; I25.10 Atherosclerotic heart disease of native coronary artery without angina pectoris; I25.84 Coronary atherosclerosis due to calcified coronary lesion; E78.2 Mixed hyperlipidemia; I10 Essential (primary) hypertension; I45.10 Unspecified right bundle-branch block
CPT/HCPCS: 93306

== ENCOUNTER 2021-12-31 07:16 | Outpatient (CLI) | payer MEDICARE, BC, SELFPAY ==
--- NOTE | 2021-12-31 07:18 | CT_ITS ---
HISTORY: U.B. CANCER RECURRENCE AND PE. TECHNIQUE: Helically acquired images were obtained of the abdomen and pelvis with IV contrast. A radiation dose optimization technique was used for this scan. IV Contrast dosage and agent: 100 mL Isovue-300 IV. Oral contrast: None. # of images incl. paperwork: 539. COMPARISON: 10/31/2021, 02/19/2013. FINDINGS: LOWER CHEST: Chronic elevation of the right hemidiaphragm. Mild bibasilar atelectasis and scarring with a stable left lower lobe pleural-based nodules or scars measuring up to 10 mm. Chronic mild left pleural effusion with pleural thickening and calcification. BOWEL: Moderate hiatal hernia. Bowel including appendix nondilated. No pericolonic inflammation. LIVER: No enhancing mass. GALLBLADDER/BILIARY TREE: Gallbladder present. SPLEEN: 2.2 cm peripherally enhancing mass with central scar, previously 1.7 cm. KIDNEYS: No hydronephrosis or nephrolithiasis. Small right renal sinus cysts. 4 mm right renal calculus. PANCREAS/ADRENAL GLANDS: Unremarkable. PERITONEUM: No significant ascites. VESSELS: No abdominal aortic aneurysm. Mild atherosclerosis. PELVIC ORGANS: Prominent bladder wall with underdistention. Mildly enlarged prostate gland with impression on the bladder base. No pathologically enlarged lymph nodes in the pelvis. ABDOMINAL WALL: Fat-containing inguinal hernias. BONES: Chronic bilateral rib fractures. Degenerative changes without suspicious osteoblastic or osteolytic lesion. CT/Abdomen/Pelvis W IV Cont ONLY IMPRESSION: Mild bladder wall thickening, likely due to underdistention. Mildly enlarged prostate gland with impression on the bladder base. Nonobstructing right renal calculus. Small right renal sinus cysts. Mildly increased size of peripherally enhancing lesion in the spleen, which may represent a hemangioma or other vascular lesion. Chronic left pleural effusion with stable left lower lobe pleural-based scars and nodules. Moderate hiatal hernia. Individualized dose optimization techniques were used for this CT. at 1120 Reported and signed by: Ritika Medina MD Electronically Signed: Ritika Medina MD at 11:18 EDT Reading Location ID and State: [facility] / [place] Tel , Service support ,
== END 2021-12-31 23:59 | disposition home or self-care (01) ==
LOC: CT 07:16
PROVIDERS: PCP Internal Medicine; Referring Provider Internal Medicine Hematology & Oncology; Visit Provider Internal Medicine Hematology & Oncology
DX: C67.9 Malignant neoplasm of bladder, unspecified (principal)
CPT/HCPCS: 74177; Q9967

== ENCOUNTER 2022-01-03 06:42 | Outpatient (CLI) | payer MEDICARE, BC, SELFPAY ==
--- NOTE | 2022-01-03 09:58 | STRESSREP_ITS ---
Stress Test Report Date: 01-03-2022 Procedure: Pharmacologic stress nuclear imaging study Indications: Abnormal ECG; abnormal chest CT scan with coronary calcification; preoperative cardiovascular evaluation Consent: Per the patient Procedure: The patient underwent pharmacologic (Regadenoson 0.4mg ) evaluation with a peak heart rate of 79 beats per minute (51%predicted maximal heart rate) and a peak blood pressure of 136/78 mmHg. The baseline ECG demonstrated sinus bradycardia; right bundle branch block. The peak pharmacologic ECG demonstrated no obvious ECG changes. There were no cardiac dysrhythmias pretest, during pharmacologic infusion, or recovery. There was no complaint of chest discomfort during pharmacologic infusion or recovery. The examination was discontinued secondary to completion of protocol. Impression: 1. Pharmacologic (Regadenoson) evaluation 2. Peak pharmacologic ECG with continued right bundle branch block with no o bvious ECG changes. 3. There were no cardiac dysrhythmias pretest, during pharmacologic infusion, or recovery. 4. Nuclear images pending Myocardial perfusion imaging study: Technique: The patient was injected with 14.8 millicuries of technetium 99m Cardiolite and subsequently rest SPECT Cardiolite nuclear imaging was obtained in the horizontal long, vertical long, and short axis views. The patient underwent pharmacologic (Regadenoson) evaluation with a peak heart rate of 79 beats per minute (51% percent predicted maximal heart rate) and a peak blood pressure of 136/78 mmHg. The patient was injected with 44.4 millicuries of technetium 99m Cardiolite and subsequently stress SPECT Cardiolite nuclear imaging was obtained in the horizontal long, vertical long, and short axis views. A gated Cardiolite study at peak stress was obtained. Interpretation: Rest and stress SPECT Cardiolite nuclear imaging status post realignment, normalization, and attenuation correction demonstrate at rest the appearance of subtle diminished tracer uptake in the distal anterior/anteroapical segments which appears to improve/normalize following stress. There is end systolic thickening and brightening. The gated Cardiolite study demonstrates myocardial thickening and inward wall motion. The reported LVEF is 72%. Impression: 1. Rest and stress SPECT her nuclear imaging demonstrate resting myocardial perfusion changes which appear to improve/normalize following stress appearing compatible with shifting soft tissue attenuation/artifact with no myocardial perfusion changes considered diagnostic for associated stress-induced myocardial ischemia. 2. The gated Cardiolite study reports an LVEF of 72%. This note was generated with Dragon dictation software. It may contain incorrect words, spelling, and punctuation that were not noted in checking the note before signing.
== END 2022-01-03 23:59 | disposition home or self-care (01) ==
LOC: CVS 06:43
PROVIDERS: PCP Internal Medicine; Referring Provider Internal Medicine Cardiovascular Disease; Visit Provider Internal Medicine Cardiovascular Disease
DX: Z01.810 Encounter for preprocedural cardiovascular examination (principal); I25.10 Atherosclerotic heart disease of native coronary artery without angina pectoris; I25.84 Coronary atherosclerosis due to calcified coronary lesion; E78.2 Mixed hyperlipidemia; I10 Essential (primary) hypertension; I45.10 Unspecified right bundle-branch block
CPT/HCPCS: 78452; 93017; A9500; A4216; J2785

== ENCOUNTER 2022-01-21 13:21 | Outpatient (RCR) | payer MEDICARE, BC, SELFPAY ==
--- NOTE | 2022-01-21 14:46 | HP.PTEVAL_ITS ---
Patient's Visit Information GONZÁLEZ LOCK is a 66 year old M referred to Physical Therapy by Dr. Eladia Corley DO with a diagnosis of Lumbar Pain. Date of Evaluation: 01/21/22 Physical Therapist: Jenae Rajan DPT - Visit Plan Frequency: 2x /Week Duration: 4 Weeks Plan: 1x a week for 4 weeks. Focus on LE and core strength/stabilization- lifting mechanics. HEP Given IE: TA contraction, hip add, hip abd and bridge, lifting mechanics, SKTC - Subjective Last he was at band practice- he picked up his amp and set it down and had zinging pain in his low back. Went to see MD the next day- she gave him a pain injection and a muscle relaxer. He does not take the muscle relaxer as he doesn't like the way he feels. He now just has pain when he gets out of bed in the morning but other than that its been doing well. He feels that he is 85-90% back to normal. 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 MD explained proper lifting mechanics. The only time he has pain now is getting out of bed in the morning. Sleep: not disturbed- side and sometimes back sleeper. Once he is standing he is good to go. Went walking yesterday and the more he is moving the better he does. Worst in the last 24 hours: 10/25. Pain is located at the bottom of the lumbar spine in the middle. No pain that radiates down the legs at this point. Describes the pain as dull and achy. No N/T in the toes. Feb had a PE so he has been taking blood thinner and his feet do swell. His urologist wants him to do exploratory surgery so he has been to a bunch of doctors to be cleared. No change or bowel/bladder since the back issues started. His exercise is walking and biking. He plays the base- does not increase pain. He has had back pain on/off for years but this something new. X-ray- none, PMHx/Meds: no change since oncology progress note - Objective Posture: FH, RS- can correct with verbal cues but does not maintain. Gait: slightly antalgic- decreased stance on left LE. HR/TR: able. SLS: 3 sec then LOB. ROM: WFL in all planes without pain in lumbar region. Strength: Core: fair, Hip: 4+/5 throughout, Knee: 5/5 Ankle: 5/5. Reflex/Sensation: WFL bilateral LE. Flex: HS: severe, Gastroc: moderate - Special Tests L/S Slump test left side: Negative L/S Slump test right side: Negative L/S Left Straight Leg Raise: Negative L/S Right Straight Leg Raise: Negative - Balance/Special Test Scores Oswestry Low Back Score: 3 - Goals Goal 1:: Patient will be I with HEP and progression Goal Time Frame: 4-6 Weeks Goal 2:: Patient will maintain proper posture t/o tx session to demo increased core s/s. Goal Time Frame: 4-6 Weeks Goal 3:: Patient will demo proper lifting mechanics Goal Time Frame: 4-6 Weeks Goal 4:: Patient will report 80% improvement Goal Time Frame: 4-6 Weeks - Rehabilitation Potential Physical Therapy Diagnosis: Patient presents with hypomobility-he has decreased LE and core strength/stabilization, flex, proprioception and functional mobility leading to poor posture and increased pain with ADL's. Rehabilitation Potential: Fair - Anticipated Interventions Thank you for the opportunity to evaluate your patient. For Medicare and Medicare HMO plans, please review the plan of care and approve it. It will need to be FAXED BACK to us at [phone] for Medicare purposes. For Medicare only, by signing this I certify the plan of care. Please let me know if there are questions or concerns regarding this plan of care. Physician Signature: Date:
== END 2022-01-21 19:00 | disposition home or self-care (01) ==
LOC: PT 13:21
PROVIDERS: PCP Internal Medicine; Referring Provider Internal Medicine; Visit Provider Internal Medicine
DX: M54.50 Low back pain, unspecified (principal)
CPT/HCPCS: 97110; 97162

== ENCOUNTER 2022-02-27 07:30 | Day surgery (SDC) | payer MEDICARE, BC, SELFPAY ==
[2022-02-27] MEDS: Lactated Ringers 1,000 ML 15 ML IV (07:47)
[2022-02-27 07:48] VITALS: BP 134/77; PULSE 58; RESP 16; TEMP 36.8; O2SAT 95; BMI 30.1
[2022-02-27] MEDS: Cefazolin 2 GM in 0.9% Normal Saline 100 ML IV (08:29)
--- NOTE | 2022-02-27 08:35 | DCINST_ITS ---
Discharge Instructions Diet Discharge Diet: No restrictions Follow Up Care Please Follow Up With: Heath Fernandes MD Test Results: Test results from this visit will be discussed in further detail at your follow- up appointment, if applicable. Discharge Plan Admission Primary Reason for Your Visit: KIDNEY STONE, + CYTOLOGY Attending Provider: Heath Fernandes Primary Care Provider: Eladia Corley Discharge Orders/Prescriptions Prescriptions: Continued amlodipine 5 MG tablet 10 mg PO DAILY metoprolol succinate 25 MG tablet 25 mg PO DAILY atorvastatin 80 mg tablet 80 mg PO DAILY Eliquis 5 mg tablet 5 mg PO BID Label Comments: LAST DOSE 02/24/22 cholecalciferol (vitamin D3) [Vitamin D3] 25 mcg (1,000 unit) Capsule 25 mcg PO DAILY zinc 50 mg Capsule 50 mg PO DAILY Referrals / Follow Up: Heath Fernandes MD [STAFF PHYSICIAN] - Eladia Corley DO [Primary Care Provider] - Disposition Disposition (needs filled in before D/C Order can be placed): Home, Self Care
--- NOTE | 2022-02-27 08:35 | PCM.HP.STD ---
HPI - General HPI Narrative GONZÁLEZ LOCK, is a 66 M who presents for a work-up evaluation he had positive urine cytology with cancer cells seen in the urine he also has a right kidney stone so today we do a cystoscopy bilateral retrograde pyelograms diagnostic and also can do a right ureteroscopy laser lithotripsy of a right kidney stone. Possible stent on the right side. PFSH Medical History Acid reflux Anxiety Arthritis Bladder cancer Cancer Cardiology follow-up encounter Coronary artery calcification COVID-19 Depression DVT (deep venous thrombosis) Essential hypertension Excessive bleeding Gastric reflux Heart murmur High cholesterol History of echocardiogram History of edema History of IBS History of irregular heartbeat History of steroid therapy History of stress test Hx of retinal detachment Hypertension IBS (irritable bowel syndrome) Lung nodule Mixed hyperlipidemia Non-smoker On home oxygen therapy Preoperative cardiovascular examination Pulmonary embolism RBBB Subcutaneous mass Wears glasses Home Medications amlodipine 5 mg tablet 10 mg PO DAILY blood pressure 10/15/13 [History Last Taken 10/31/21] metoprolol succinate 25 mg tablet,extended release 24 hr 25 mg PO DAILY blood pressure 10/15/13 [History Last Taken 10/31/21] atorvastatin 80 mg tablet 80 mg PO DAILY CHOLESTEROL 10/31/21 [History Last Taken 10/31/21] apixaban 5 mg tablet (Eliquis) 5 mg PO BID 12/06/21 [History Last Taken Unknown] cholecalciferol (vitamin D3) 25 mcg (1,000 unit) capsule (Vitamin D3) 25 mcg PO DAILY 02/20/22 [History Last Taken Unknown] zinc 50 mg capsule 50 mg PO DAILY 02/20/22 [History Last Taken Unknown] Allergy/AdvReac Type Severity Reaction Status Date / Time No Known Allergies Allergy Verified 02/27/22 07:51 Family History Father Heart disease Grandfather Hypertension Surgical History History of cystoscopy History of surgical procedure on eye proper using laser Hx of colonoscopy Hx of sinus surgery Hx of surgical procedure Hx of tonsillectomy S/P bladder tumor excision with fulguration S/P nasal polypectomy S/P tonsillectomy Social History Smoking Status: Never smoker alcohol intake: never substance use type: does not use caffeine: Yes Vital Signs Vital Signs Vital Signs: 02/27/22 07:48 02/27/22 07:48 Temperature 98.3 F Temperature Source Temporal Pulse Rate 58 L Respiratory Rate 16 Respiratory Pattern Normal Blood Pressure 134/77 H Blood Pressure Mean 96 Blood Pressure Source Monitor Blood Pressure Position Semi-Fowlers Blood Pressure Location Right Arm Pulse Ox 95 Oxygen Delivery Method Room Air Weight Weight: 98 kg Body Mass Index (BMI) 30.1
--- NOTE | 2022-02-27 09:09 | PCM.OPRPT ---
Report of Operation Date of Procedure: 02/27/22 Pre-Operative Diagnosis: Positive urine cytology, microscopic hematuria, right kidney stone Post-Operative Diagnosis: The same Surgery/Procedure Performed:: Cystoscopy, left retrograde pyelogram, balloon dilation of the right ureter, right ureteroscopy laser lithotripsy of stone, no stent Description of Surgical Findings:: 66-year-old male who has a history of microscopic hematuria work-up in the office we did a cystoscopy that was clear we sent the urine for cytology which came back positive for very suspicious cells for transitional cell carcinoma recommended we complete the work-up with a cystoscopy in the operating room and bilateral retrograde pyelograms we did a CAT scan that demonstrated a stone in the right kidney and no filling defects or other lesions seen on the CAT scan so today we have taken the surgery to do it cystoscopy evaluate the lining of the bladder retrograde pyelogram the left side and the right side we can do a diagnostic ureteroscopy and laser lithotripsy of stone. Patient was taken back to the operating room, after induction of anesthesia he was placed in dorsolithotomy position. Penis and testicles were prepped and draped in usual sterile fashion. Went into the bladder with a 21 [place] rigid cystourethroscope and did a cystoscopy inspected the entire bladder mucosa there was no stones no tumors no papillary tumors the left and right uterus were identified, there is a few tiny floating stones in the bladder but nothing of significance. I then cannulated the left ureteral orifice with a Pollick catheter and performed a retrograde pyelogram this was completely normal with no filling defects clear filling of the renal pelvis and sharp calyces no filling defects on the left retrograde pyelogram I then pulled out the catheter and the the kidney drained normally I then went to the right side and cannulated the right ureteral orifice with the balloon dilator over a wire after balloon dilating the distal right ureter for about 5 minutes with a 12 [place] balloon dilator I then left the wire in place and then over the wire I went in with the flexible 8 [place] Olympus ureteroscope. I was able to get into the ureter quite easily worked my way all the way up the ureter I did not see any filling defects or tumors along the course of the ureter I looked up into the kidney inspected the upper pole midpole and lower pole the kidney there was no tumors redness no lesions in the kidney everything was clear I then identified the stone in the mid calyx then using a 270 ?m laser fiber laser lithotripsy was performed on the stone and the stone was lasered little tiny pieces and dusted using energy settings of 6 Hz and 6 0.6 J. After completing the treatment of the kidney stone I worked my way down the ureter the bladder was drained no stent was placed patient anesthetic was reversed and at this point no findings were found in the kidneys and the bladder regarding the cytology want to continue to monitor this and we were successfully able to treat the right kidney stone. Surgeon: Heath Fernandes Type of Anesthesia: General Admit VTE Documentation VTE Present on Admission: No VTE Mechan Device Prophylaxis: SCD's VTE Pharm Prophylaxis ordered?: No
[2022-02-27 09:19] VITALS: BP 112/74; BP 134/77; PULSE 65; RESP 14; TEMP 37.1; O2SAT 95
[2022-02-27 09:30] VITALS: BP 102/65; BP 134/77; PULSE 64; RESP 16; O2SAT 95
[2022-02-27 09:45] VITALS: BP 109/68; BP 134/77; PULSE 61; RESP 16; O2SAT 95
[2022-02-27 10:00] VITALS: BP 115/67; BP 134/77; PULSE 60; RESP 16; TEMP 36.7; O2SAT 95
[2022-02-27 10:20] VITALS: BP 116/60; BP 134/77; PULSE 60; RESP 16; TEMP 36.7; O2SAT 95
== END 2022-02-27 10:42 | disposition home or self-care (01) ==
LOC: SDC 07:31 → AC 07:32
PROVIDERS: PCP Internal Medicine; Visit Provider Urology
PROC: (CPT 52332; principal; 2022-02-27 09:25)
DX: N20.0 Calculus of kidney (principal); R31.29 Other microscopic hematuria; I25.10 Atherosclerotic heart disease of native coronary artery without angina pectoris; I10 Essential (primary) hypertension; E78.2 Mixed hyperlipidemia; N40.1 Benign prostatic hyperplasia with lower urinary tract symptoms; R35.1 Nocturia; Z79.01 Long term (current) use of anticoagulants; Z79.899 Other long term (current) drug therapy; Z85.51 Personal history of malignant neoplasm of bladder
CPT/HCPCS: 52353; 76000; J7120; C1769; J2405

== ENCOUNTER → 2022-05-02 | Outpatient (CLI) | payer MEDICARE, BC, SELFPAY ==
[2022-05-02 15:49] LABS: Anion Gap 5 (5-15); BUN 21 mg/dL (7-18); BUN/Creat Ratio 16.5 RATIO (10-20); Calcium,Total 9.7 mg/dL (8.5-10.1); Chloride 106 mmol/L (98-107); Creatinine, Serum 1.27 mg/dL (0.70-1.30); EST Glomerular Filtration Rate 60 mL/min (>60); Est Glom Filt Rate - Afr Amer 73 mL/min (>60); Glucose 96 mg/dL (74-106); Potassium 4.4 mmol/L (3.5-5.1); Sodium Level 141 mmol/L (136-145)
== END | disposition home or self-care (01) ==
LOC: LAB 14:46
PROVIDERS: Nurse Practitioner Family; PCP Internal Medicine; Visit Provider Internal Medicine Cardiovascular Disease
DX: I10 Essential (primary) hypertension (principal); I45.10 Unspecified right bundle-branch block
CPT/HCPCS: 36415; 80048

== ENCOUNTER → 2022-05-15 | Outpatient (CLI) | payer MEDICARE, BC, SELFPAY ==
[2022-05-15 13:17] LABS: Anion Gap 3 (5-15); BUN 24 mg/dL (7-18); BUN/Creat Ratio 17.6 RATIO (10-20); Calcium,Total 9.4 mg/dL (8.5-10.1); Chloride 101 mmol/L (98-107); Creatinine, Serum 1.36 mg/dL (0.70-1.30); EST Glomerular Filtration Rate 56 mL/min (>60); Est Glom Filt Rate - Afr Amer 67 mL/min (>60); Glucose 91 mg/dL (74-106); Potassium 4.2 mmol/L (3.5-5.1); Sodium Level 139 mmol/L (136-145)
== END | disposition home or self-care (01) ==
PROVIDERS: PCP Internal Medicine; Referring Provider Nurse Practitioner Family; Visit Provider Nurse Practitioner Family
DX: I10 Essential (primary) hypertension (principal)
CPT/HCPCS: 36415; 80048

== ENCOUNTER → 2023-07-04 | Outpatient (CLI) | payer MEDICARE, BC, SELFPAY ==
[2023-07-01 11:42] LABS: EGFR FINGERSTICK > 60.0000 mL/min (>60)
--- NOTE | 2023-07-04 14:19 | MRI_ITS ---
MR Pelvis WO/W Contrast 07/04/2023 2:31 PM COMPARISON: None CLINICAL HISTORY: 67 yo M w/ elevated PSA Most recent PSA = 6.6 ng/ml; PSA date = 06/11/2023 TECHNIQUE: Standard Prostate MR protocol was used before and after administration of 20 cc of IV Clariscan. FINDINGS: Prostate volume: 53 cc PSA density: 0.12 ng/ml2 Length of membranous urethra: 22 mm Post-biopsy hemorrhage: None Multiparametric MR evaluation: Heterogeneous appearance of the central gland is consistent with benign prostatic hyperplasia. There is diffuse T2 hypointensity of the peripheral gland consistent with prostatitis. Lesion 1: 1.4 x 1.6 x 2.2 cm smudgy moderately T2 hypointense area in the right anterior TZ near base. It is moderately bright on DWI and moderately dark on ADC map. T2 - 5 DWI - 3 DCE - inconclusive Overall PI-RADS v2 score = 5 Capsular margin and neurovascular bundle: Possible microcapsular extension into the right anterior/anterolateral fibromuscular stroma. Seminal vesicles: Normal Lymph nodes: No lymphadenopathy in the field of view. Bones: No suspicious lesions in the field of view. MRI/Pelvis W/WO Contrast IMPRESSION: Diffuse T2 hypointensity of the peripheral gland consistent with prostatitis. Benign prostatic hyperplasia. 2.2cm PI-RADS 5 lesion in the right anterior TZ near base. - Possible microcapsular extension into the right anterior/anterolateral fibromuscular stroma. - No evidence of seminal vesicle invasion. - No lymphadenopathy. - No suspicious bone lesions. Electronically Signed: Javier Pretty MD at 17:15 EDT ,
== END | disposition home or self-care (01) ==
LOC: MRI 13:58
PROVIDERS: PCP Internal Medicine; Referring Provider Urology; Visit Provider Urology
DX: R97.20 Elevated prostate specific antigen [PSA] (principal)
CPT/HCPCS: 72197; A9575

== ENCOUNTER → 2023-07-22 | Outpatient (CLI) | payer MEDICARE, BC, SELFPAY ==
--- NOTE | 2023-07-22 | PROSBIL_PTH ---
PATIENT: GONZÁLEZ LOCK LOC: [facility] U#:[id number] AGE/SX: 67/M ROOM: RE07/22/[address]: Dr. Heath Fernandes MD : 1955 BED: DIS: 07/22/2023 SPEC #: [id number] RECD: 07/23/23 11:30 STATUS: RAFA REKari #: [id number] JUAN: 07/22/23 00:[address]: Heath Fernandes DEPT: SURGICAL PATHOLOGY RECD BY: Liyah Enrique ENTERED: 07/23/23 11:54 SP TYPE: PROST BX OTTO DR: Dr. Eladia Corley DO Tissues: A - PROSTATE RIGHT B - PROSTATE RIGHT C - PROSTATE RIGHT D - PROSTATE LEFT E - PROSTATE LEFT F - PROSTATE LEFT Procedures: PROSTATE BX HEADER OPERATION: Prostate biopsy PRE-OP DIAGNOSIS: R97.20 TISSUE SUBMITTED: A-Right apex, B-Right mid, C-Right base, D-Left apex, E-Left mid, F-Left base MICROSCOPIC DIAGNOSIS A. Right prostate, apex, core biopsy: Prostatic tissue, negative for malignancy. Focal chronic inflammation. B. Right prostate, mid, core biopsy: Prostatic tissue, negative for malignancy. C. Right prostate, base, core biopsy: Prostatic tissue, negative for malignancy. Focal chronic inflammation. D. Left prostate, apex, core biopsy: Prostatic tissue, negative for malignancy. Focal chronic inflammation. E. Left prostate, mid, core biopsy: Focal high-grade prostatic intraepithelial neoplasia (HGPIN). Chronic inflammation. F. Left prostate, base, core biopsy: Prostatic adenocarcinoma. [place] grade: 3+4=7 Number of cores involved: 1/2 Proportion of tissue involved: 5-10 % Perineural invasion: Not identified. Greatest tumor length: 0.3cm See comment. COMMENT Immunohistochemistry ([id number]) supports the above diagnosis. MICROSCOPIC DESCRIPTION Slides are reviewed. GROSS DESCRIPTION A - Received is one container designated prostate, right apex. The specimen consists of two elongated fragments of light agee-white soft tissue each measuring 2.0 cm in length and 0.1 cm in diameter. The specimen is totally submitted in one cassette. B - Received is one container designated prostate, right mid. The specimen consists of two elongated fragments of light agee-white soft tissue each measuring 1.6 cm and 2.0 cm in length and 0.1 cm in diameter. The specimen is totally submitted in one cassette. C - Received is one container designated prostate, right base. The specimen consists of two elongated fragments of light agee-white soft tissue each measuring 1.5 cm and 2.0 cm in length and 0.1 cm in diameter. The specimen is totally submitted in one cassette. D - Received is one container designated prostate, left apex. The specimen consists of two elongated fragments of light agee-white soft tissue each measuring 1.2 cm and 2.0 in length and 0.1 cm in diameter. The specimen is totally submitted in one cassette. E - Received is one container designated prostate, left mid. The specimen consists of two elongated fragments of light agee-white soft tissue each measuring 2.0 cm in length and 0.1 cm in diameter. The specimen is totally submitted in one cassette. F - Received is one container designated prostate, left base. The specimen consists of two elongated fragments of light agee-white soft tissue each measuring 1.5 cm and 1.9cm in length and 0.1 cm in diameter. The specimen is totally submitted in one cassette. / SJ:cc 07/23/23 TC:0 CPT: 45010 x6 or [id number]
--- NOTE | 2023-07-22 | IMM_PTH ---
PATIENT: GONZÁLEZ LOCK LOC: [facility] U#:[id number] AGE/SX: 67/M ROOM: RE07/22/[address]: Dr. Heath Fernandes MD : 1955 BED: DIS: 07/22/2023 SPEC #: [id number] RECD: 07/24/23 11:43 STATUS: RAFA REQ #: [id number] JUAN: 07/22/23 00:[address]: Heath Fernandes DEPT: IMMUNOHISTOCHEMISTRY RECD BY: Dorothy Willard ENTERED: 07/24/23 11:44 SP TYPE: IMMUNO OTHR DR: Dr. Eladia Corley, Tissues: PROSTATE BIOPSY Procedures: P40 (add) 34BE12 (initial) PHYSICIAN & INSTITUTION [place] [id number] SPECIMEN INFORMATION: Tissue Source: Prostate, left base Clinical Info: R97.20 Specimen Number: [id number] CPT code: 27927, 59834 METHODOLOGY: Deparaffinized sections of prefer/formalin-fixed tissue or PAP/DQ stained slides are incubated with monoclonal/polyclonal antibodies/oligonucleotide probes. Localization is made via biotin free immunoperoxidase method. Appropriate controls are performed and reacted as expected. Results on target cell population are indicated in the following table: RESULTS: ANTIBODY / CLONE RESULT P40 (BC28) negative 34BE12 (34BE12) negative These tests were developed and their performance characteristics determined by [facility]. They may not have been cleared or approved by the U.S. Food and Drug Administration. The FDA has determined that such clearance or approval is not necessary. The above immunohistochemical/dualISH markers are ordered and reviewed by the Pathologist. INTERPRETATION: Prostate, left base, core biopsy: Adenocarcinoma. RIC:schuyler 07/25/2023
== END | disposition home or self-care (01) ==
LOC: LABSPEC 07-23 11:28
PROVIDERS: PCP Internal Medicine; Visit Provider Urology
DX: R97.20 Elevated prostate specific antigen [PSA] (principal)
CPT/HCPCS: 88305; 88341; 88342; G0416

== ENCOUNTER 2023-10-29 16:00 | Outpatient (RCR) | payer MEDICARE, BC, SELFPAY ==
--- NOTE | 2023-10-20 14:41 | HP.PTEVAL ---
Patient's Visit Information Visit Information Visit Information: GONZÁLEZ LOCK is a 67 year old M referred to Physical Therapy by Dr. Eladia Corley DO with a diagnosis of R hip pain. Date of Evaluation: 10/14/23 Physical Therapist: Hua Hampton DPT Visit Plan Frequency: 2x /Week Duration: 4 Weeks Plan: Start with REIL, hip flexor stretching, and glute/hip strengthening. May mobilize hip and lumbar spine to assist with ROM as well. Subjective Subjective: Pt. is here today for his initial evaluation with diagnosis of R hip pain. Pt. reports having previous bout of pain, but this time started ~10 days ago. Pt. reports standing for longer periods of time. Sitting and lying down tend to do better. No issues with sleeping. Decreases pain: lying down. It feels like I need to give it a rest at time. Massage has been helping. No N/T in either LE, potentially occasionally at lateral leg. Occasionally wants to give out on him. Pt. reports just fatiguing easily. Pt. denies N/T. Pt. is hopeful to get back to all work activities without limitations. Pain R posterior hip: Pain Intensity (Out of 10): 3 Pain Intensity Range: 4 Objective Objective: POSTURE: Pt. had increased thoracic kyphosis, possible increased scoliosis. PALPATION: Pt. has no pain with palpation of gluteal, IT band, piriformis muscle bellies. Pt. did have some pain with palpation of R SI joint. NO issues with spring testing. No increase in pain, but very stiff. NEURO: Normal throughout BLEs. Normal sensation and normal DTR of BLEs. Pt. is able to rise on heels and toes without issues. ROM: R hip: Pt. has good ROM throughout R hip. He had 120deg of flexion, 15deg of extension. ER 70deg mild increase in posterior hip pain, IR 30deg NE. Pt. has some tightness in his HS and IT band. Lumbar spine: flexion nil/min loss NE, ext min/mod loss increase NW, SB min loss NE bilat, rotation min loss bilat NE. MMT: PT. has good 5/5 strength throughout BLEs. No increase in symptoms with trials. GAIT: Pt. has normal gait pattern, but is generally fwrd flexed. Balance/Special Test Scores Lower Extremity Functional Score: 49 Goals Goal 1:: LTG: Pt. have no pain in his LBP and hip region. Goal Time Frame: 2-4 Weeks Goal 2:: LTG: pt. to have increased ROM throughout B hips and lumbar spine. Goal Time Frame: 4-6 Weeks Goal 3:: LTG: pt. to be able to complete all work releated activities without increase in R posterior hip pain. Goal Time Frame: 4-6 Weeks Goal 4:: LTG: PT. to have negative joaquin test bilaterally. Goal Time Frame: 4-6 Weeks Rehabilitation Potential Physical Therapy Diagnosis: Pt. has some R hip pain, but might be more associated with hip back and pelvic positioning. He is very stiff in general and has some marked hip extensor weakness. Pt. would benefit from PT to address the above limitations progressing back to all work activities without limitations.f Rehabilitation Potential: Good Anticipated Interventions Patient/Client Instruction: Educate patient on: Condition, Plan of Care, Risk Factors and Benefits of Fitness Program For the Purpose of:: To improve health and function, To foster healthy habits, To improve decision making, To facilitate caregiver knowledge, To improve self management, To prevent re-injury and To improve ability to perform tasks related to life management Therapeutic Exercise to Include: Strength training, Power training, Postural training, Flexibilty training, Passive ROM and Active ROM For the Purpose of:: To decrease pain, To increase ROM, To improve nutrient delivery to tissue, To increase oxygenation perfusion, To improve ability to perform ADL's and To increase tolerance to activity/condition/position Manual Therapy Techniques to Include: Soft tissue mobilization For the Purpose of:: To decrease pain, To increase ROM, To improve nutrient delivery to tissue and To increase oxygenation perfusion Text: Thank you for the opportunity to evaluate your patient. For Medicare and Medicare HMO plans, please review the plan of care and approve it. It will need to be FAXED BACK to us at [phone] for Medicare purposes. For Medicare only, by signing this I certify the plan of care. Please let me know if there are questions or concerns regarding this plan of care. Physician Signature: Date:
--- NOTE | 2023-12-25 10:27 | HP.PT.NRP ---
Patient Information Patient Information: GONZÁLEZ LOCK was seen in my office for initial evaluation on 10/14/23. The following Plan of Care was established for this patient: POC Established Initial Frequency: 2x /Week Initial Duration: 4 Weeks Anticipated Interventions Patient/Client Instruction: Educate patient on: Condition, Plan of Care, Risk Factors and Benefits of Fitness Program For the Purpose of:: To improve health and function, To foster healthy habits, To improve decision making, To facilitate caregiver knowledge, To improve self management, To prevent re-injury and To improve ability to perform tasks related to life management Therapeutic Exercise to Include: Strength training, Power training, Postural training, Flexibilty training, Passive ROM and Active ROM For the Purpose of:: To decrease pain, To increase ROM, To improve nutrient delivery to tissue, To increase oxygenation perfusion, To improve ability to perform ADL's and To increase tolerance to activity/condition/position Manual Therapy Techniques to Include: Soft tissue mobilization For the Purpose of:: To decrease pain, To increase ROM, To improve nutrient delivery to tissue and To increase oxygenation perfusion Last Seen Last Seen: This patient was last seen in our office 10/29/23. Pertinent comments regarding their Physical therapy will appear below: Pt. was seen for his hip pain. He was doing well at his last visit. He was to follow up if needed. Pt. has not been seen in several weeks and will be DC from PT at this point in time. At this point I will be discontinuing this patient from physical therapy. I would be happy to see this patient again in the future if found appropriate by the physician. Thank you! Hua Hampton, DPT Balance/Gait/Functional tests Balance/Special Test Scores Lower Extremity Functional Score: 49
== END 2023-10-29 19:00 | disposition home or self-care (01) ==
LOC: PT 16:00
PROVIDERS: PCP Internal Medicine; Referring Provider Internal Medicine; Visit Provider Internal Medicine
DX: M25.551 Pain in right hip (principal)
CPT/HCPCS: 97110; 97161

== ENCOUNTER → 2023-12-08 | Outpatient (CLI) | payer MEDICARE, BC, SELFPAY | END | disposition home or self-care (01) | LOC: LAB 10:59 | PROVIDERS: PCP Internal Medicine; Referring Provider Urology; Visit Provider Urology | DX: C61 Malignant neoplasm of prostate (principal) | CPT/HCPCS: 36415; 84153 ==

== ENCOUNTER 2024-01-28 05:24 | Day surgery (SDC) | payer MEDICARE, BC, SELFPAY ==
--- NOTE | 2024-01-20 12:37 | EKG12_ITS ---
Test Reason : PRE-OP Blood Pressure : / mmHG Vent. Rate : 073 BPM Atrial Rate : 073 BPM P-R Int : 166 ms QRS Dur : 140 ms QT Int : 416 ms P-R-T Axes : 020 -52 013 degrees QTc Int : 458 ms Normal sinus rhythm Left axis deviation Right bundle branch block Inferior infarct , age undetermined Abnormal ECG Confirmed by MEL BALTAZAR, AMADOU ([id number]), tape editor JOYCE HILL ([id number]) on 01/21/2024 6:56:21 AM Referred By: Heath Fernandes Confirmed By:AMADOU LEAL MD
[2024-01-20 13:26] LABS: Hemoglobin 15.5 g/dL (13.0-16.5); Mean Corpuscular Hgb 31.2 pg (27.0-32.0); Mean Corpuscular Volume 94.6 fL (80-94); Mean Platelet Vol. 9.4 fl (6.2-12.0); Platelet Count 215 K/mm3 (150-450); RBC Distribution Width CV 13.5 % (11.6-14.6); RBC Distribution Width SD 46.5 fl (35.1-43.9); Red Blood Count 4.97 M/mm3 (4.6-6.2); White Blood Count 7.6 K/mm3 (4.4-11.0)
[2024-01-28] VITALS (17 sets, daily range): BP systolic 121–150; BP diastolic 56–90; PULSE 60–93; RESP 15–18; TEMP 36.3–37.1; O2SAT 86–98; BMI 30.1
[2024-01-28] MEDS: Lactated Ringers 1,000 ML 15 ML IV (06:11)
[2024-01-28] MEDS: Cefazolin 2 GM in 0.9% Normal Saline (100mL Bag) 100 ML IV (07:27)
--- NOTE | 2024-01-28 07:30 | PROST_PTH ---
PATIENT: GONZÁLEZ LOCK [place] [facility] [facility] [place][id number] AGE/SX: 68/M ROOM: RE01/28/[address]: Dr. Heath Fernandes MD : 1955 BED: DIS: 01/29/2024 SPEC #: [id number] RECD: 01/28/24 13:04 STATUS: RAFA RE #: [id number] JUAN: 01/28/24 07:[address]: Heath Fernandes DEPT: SURGICAL PATHOLOGY RECD BY: Dorothy Willard ENTERED: 01/29/24 08:32 SP TYPE: PROSTATE OTHR DR: Dr. Eladia Corley DO Tissues: A - Lymph node of pelvis, NOS B - Lymph node of pelvis, NOS C - PROSTATE BIOPSY D - Prostate, NOS Procedures: Special Stain Group I Surgery Specimen Level IV Surgery Specimen Level V Surgery Specimen Level AFB Stain (control) GMS Stain (control) HEADER OPERATION: Laparoscopic radical robotic prostatectomy PRE-OP DIAGNOSIS: Malignant neoplasm of prostate TISSUE SUBMITTED: A- Left pelvic lymph node, B- Right pelvic lymph node, C- Prostate, D- Left lateral margin of prostate MICROSCOPIC DIAGNOSIS A. Left pelvic lymph nodes, regional lymphadenectomy: Five out of five lymph nodes are negative for carcinoma. B. Right pelvic lymph node, regional lymphadenectomy: Three out of three lymph nodes are negative for carcinoma. C. Prostate, radical prostatectomy: Prostatic adenocarcinoma. Necrotizing granulomatous inflammation. Chronic prostatitis. Benign nodule hyperplasia. Focal high-grade prostatic intraepithelial neoplasia (HGPIN). Negative for acid fast bacilli and fungal organisms. See cancer synoptic report below. D. Left lateral margin of prostate, biopsy: Fibrofatty and fibrovascular tissue. No evidence of malignancy. PILLO/ 02/02/2024 COMMENT C. AFB and GMS stains with matched controls were used in the evaluation of this case. PROSTATE CANCER (RADICAL) SUMMARY: Procedure: Radical Prostatectomy Prostate Size: 5.0 x 4.0 x 4.0cm; Weight: 79.2 grams Histologic Type: Adenocarcinoma Histologic Grade: 3+4 (Isabel grade 7) Percent of Pattern 4: 15% Percent of Pattern 5: 0% Intraductal Carcinoma: Not identified Tumor Quantitation: 1.2 x 1.0 x 0.4cm (from glass slides) Extraprostatic Extension: Not identified Urinary Bladder Neck Invasion: Not identified Seminal Vesicle Invasion: Not identified Lymphvascular Invasion: Not identified Perineural Invasion: Not identified Margins: Free of carcinoma Regional Lymph Nodes: Number of lymph nodes involved by carcinoma: None Total number of lymph nodes examined: 8 Treatment Effect: Unknown Additional Pathologic Findings: High-grade pin, benign nodular hyperplasia, chronic prostatitis Focal necrotizing granulomatous inflammation Clinical History: prostate cancer PATHOLOGIC STAGE: T2 N0 Mx The above summary is in compliance with [employer] [place] (CAP) Cancer Protocols Checklist and [place] [employer] Committee on Cancer (AJCC), Staging Manual, 8th Ed. MICROSCOPIC DESCRIPTION Slides are reviewed. GROSS DESCRIPTION A. Received in fixative is one container labeled with the patient's name and designated Left pelvic lymph node. The specimen consists of a piece of adipose tissue measuring 3 x 3 x 1 cm. Multiple lymph nodes are identified, largest measuring 1.5cm in greatest dimension. The entire specimen is submitted in three cassettes as follows: 1- multiple lymph node, 2&3- rest of the specimen. B. Received in fixative is one container labeled with the patient's name and designated Right pelvic lymph node. The specimen consists of a piece of adipose tissue measuring 3.0 x 3.0 x 1.0cm. Two nodules consistent with lymph nodes are identified measuring 1.0 and 1.5cm in greatest dimension. The entire specimen is submitted in three cassettes as follows: 1- bisected lymph node, 2- bisected lymph node, 3- rest of the specimen. C. Received in fixative is one container labeled with the patient's name and designated prostate. The specimen consists of a radical prostatectomy specimen consisting of prostate and bilateral seminal vesicles and vas deferens. The specimen weighs 79.2 gm. The prostate measures 5.0 cm transversely, 4.5 cm anterior-posteriorly and 4.0 cm craniocaudally. The right seminal vesicle measures 2.0 x 1.0 x 0.6 cm and right vas deferens measures 2.0 cm in length and 0.3 cm in diameter. Left vas deferens measures 1.5cm in length and 0.3cm in greatest dimension. Only a small portion of left seminal vesicle is noted which measures 1.0 x 0.5 x 0.2cm. The prostate is inked as follows: anterior surface prostate - yellow, posterior surface of prostate, right seminal vesicle and vas deferens and left seminal vesicle and vas deferens - black, right lateral surface prostate and anterior surface right seminal vesicle and right vas deferens - blue and left lateral surface prostate and anterior surface left vas deferens and vas deferens - green. Serial sections do not reveal any mass lesions. Butadiene Converter Operator sections are submitted in 23 cassettes as follows: 1 - right seminal vesicle and vas deferens, 2 - left seminal vesicle and vas deferens, entirely submitted, 3&4 - apical (urethral) margin, enface, 5&6 - bladder neck and basal portion of prostate margin, enface, 7-10 - apical portion prostate, 11-16- middle portion prostate, 17-23 - basal portion prostate. Sections will be submitted after additional fixation. D. Received in fixative is one container labeled with the patient's name and designated Left lateral margin of prostate. The specimen consists of a piece of agee congested soft tissue measuring 2.0 x 1.0 x 0.2cm. The entire specimen is submitted in one cassette. RIC/ 01/29/2024 TC:0 CPT:56190,76317V1,72674
[2024-01-28] MEDS: Bupivacaine Mpf 0.5% 30 ML VIAL (11:30)
--- NOTE | 2024-01-28 11:50 | PCM.HP.STD ---
HPI - General General Date of Service: 01/28/24 Chief Complaint: Prostate cancer HPI Narrative OGNZÁLEZ LOCK, is a 68 M who presents for a radical prostatectomy for prostate cancer PFSH Medical History (Updated 01/28/24 @ 11:[address] Heath Fernandes MD) History of pain when walking Kidney stone Wears glasses Cancer History of steroid therapy Arthritis DVT (deep venous thrombosis) Excessive bleeding Pulmonary embolism History of IBS Gastric reflux Non-smoker On home oxygen therapy COVID-19 History of edema History of echocardiogram History of stress test Hypertension Cardiology follow-up encounter History of irregular heartbeat Hx of retinal detachment Coronary artery calcification Preoperative cardiovascular examination IBS (irritable bowel syndrome) Lung nodule Mixed hyperlipidemia Essential hypertension RBBB Subcutaneous mass Bladder cancer Anxiety Depression Heart murmur Acid reflux High cholesterol Home Medications ?Medication ?Instructions ?Recorded ?Last Taken ?Type metoprolol succinate 25 mg 25 mg PO DAILY blood pressure 10/15/13 01/28/24 04:30 History tablet,extended release 24 hr atorvastatin 80 mg tablet 80 mg PO DAILY CHOLESTEROL 10/31/21 01/27/24 History apixaban 5 mg tablet (Eliquis) 5 mg PO BID 12/06/21 01/24/24 History losartan 50 mg tablet 50 mg PO DAILY #30 tabs 06/09/23 01/28/24 04:30 Rx cephalexin 500 mg capsule 500 mg PO BID #20 caps 01/28/24 Unknown Rx docusate sodium 100 mg capsule 100 mg PO BID #20 caps 01/28/24 Unknown Rx (Colace) oxycodone 5 mg tablet 5 mg PO Q6H PRN pain 7 days #14 01/28/24 Unknown Rx tabs Allergy/AdvReac Type Severity Reaction Status Date / Time No Known Allergies Allergy Verified 01/28/24 05:51 Family History Father Heart disease Grandfather Hypertension Surgical History (Updated 01/15/24 @ 13:34 by Theresa Llanes) Hx of colonoscopy History of cystoscopy Hx of colonoscopy Hx of tonsillectomy Hx of surgical procedure Hx of sinus surgery S/P bladder tumor excision with fulguration S/P nasal polypectomy History of surgical procedure on eye proper using laser S/P tonsillectomy Social History Smoking Status: Never smoker alcohol intake: current alcohol intake frequency: holidays/special occasions only substance use type: does not use caffeine: Yes Type: carbonated beverages Number of servings: 1 Vital Signs Vital Signs Vital Signs: 01/28/24 05:53 01/28/24 05:53 Temperature 98.3 F Temperature Source Temporal Pulse Rate 60 Respiratory Rate 16 Respiratory Pattern Normal Blood Pressure 139/84 H Blood Pressure Mean 102 Blood Pressure Source Monitor Blood Pressure Position Semi-Fowlers Blood Pressure Location Left Arm Pulse Ox 96 Oxygen Delivery Method Room Air Weight Weight: 97.976 kg Body Mass Index (BMI) 30.1 Results Lab / Micro Data 01/20/24 12:52
--- NOTE | 2024-01-28 11:51 | PCM.DC ---
Discharge Instructions Diet Discharge Diet: No restrictions, Light diet - advance as tolerated and Soft diet Activity Discharge Activity: May Not Drive Return to work on:: 02/25/24 May shower in (days): 1 Dressing / Incision Suture Line Care: Avoid Pulling/Pushing and Avoid Pinching/Bending Cleanse incision/area with: Soap & Water Catheter: Galvan to leg bag and Galvan to large bag Drain: [place] Follow Up Care Please Follow Up With: Heath Fernandes MD When: call for appt Test Results: Test results from this visit will be discussed in further detail at your follow-up appointment, if applicable. Discharge Plan Admission Primary Reason for Your Visit: prostate cancer Attending Provider: Heath Fernandes Primary Care Provider: Eladia Corley Instructions Print Language: Portuguese Discharge Orders/Prescriptions Prescriptions: New oxycodone 5 mg tablet 5 mg PO Q6H PRN (Reason: pain) 7 Days Qty: 14 0RF docusate sodium [Colace] 100 mg capsule 100 mg PO BID Qty: 20 0RF cephalexin 500 mg capsule 500 mg PO BID Qty: 20 0RF Continued metoprolol succinate 25 MG tablet 25 mg PO DAILY atorvastatin 80 mg tablet 80 mg PO DAILY losartan 50 mg tablet 50 mg PO DAILY Qty: 30 11RF Held Eliquis 5 mg tablet 5 mg PO BID Hold Instructions: Resume on 02/11/24. Patient Comments: STOP 7 DAYS PRE-OP Referrals / Follow Up: Eladia Corley DO [Primary Care Provider] - Disposition Disposition (needs filled in before D/C Order can be placed): Home, Self Care
--- NOTE | 2024-01-28 11:52 | OP.PCM_ITS ---
Report of Operation Date of Procedure: 01/28/24 Pre-Operative Diagnosis: Prostate cancer Post-Operative Diagnosis: The same Surgery/Procedure Performed:: Laparoscopic robotic assisted radical prostatectomy pelvic lymph node dissection Description of Surgical Findings:: Patient presented to the hospital for treatment of his prostate cancer with radical prostatectomy. In the preoperative setting we discussed the options of management for his prostate cancer including active surveillance, radiation treatments, radioactive seeds, and radical robotic prostatectomy. We discussed the side effects of surgery including the potential to lose erections. We discussed the potential to have bladder control problems with stress incontinence which can be temporary or permanent. We discussed the risk of the surgery including the risk of general anesthetic, risk of bleeding, risk of infection, and risk of formation of hernia either incisional hernia or inguinal hernia. After long discussion with the patient the preoperative setting and als o reviewed this in the preop area patient signed the consent form and we proceeded with a radical prostatectomy. Patient was taken back to the operating room he was identified, time out procedure was performed and he was placed supine on the table he underwent general anesthesia with intubation. The abdomen was shaved prepped and draped in usual sterile fashion as well as the penis and testicles. A 16 [place] catheter was placed into the bladder with clear return of urine. I then made an incision in the umbilicus and dissected down to the fascia advance a Veress needle into the peritoneal cavity and insufflated the peritoneal cavity with CO2 gas. I then placed a 12 mm trocar above the umbilicus. I then visualized the placement of the rest of the trochars, I placed a right arm robotic trocar, and air seal trocar, a suction port 5 mm trocar. And on the left side I placed 2 robotic arms. Once all the trochars were in placed the patient was put in steep Trendelenburg. And the robot was docked the arms were docked and then I placed the 0 degree camera through the robotic arm and also used a 30 degree camera during certain parts of the case. I used scissors in the right arm, prograsp in the third arm, and a bipolar in the second arm. Initial dissection was to free the sigmoid colon off the lateral wall this was done by meticulously dissecting off the peritoneum and the sigmoid colon off the left lateral wall. This then allowed the prograsp to retract the sigmoid colon out of the pelvis. I then went below the bladder and identified the vas deferens incised the peritoneum over the vas deferens and traced the vas deferens below the bladder to the prostate and identified the right and left vasa deferens. Below behind the vas deferens then the seminal vesicles were identified. I then dissected the seminal vesicle free using pinpoint electrocautery and then we identified the other seminal vesicle and then dissected this using pinpoint electrocautery I then elevated the vas deferens and several vesicles off the prostate and was able to sweep the Denonvilliers' fascia off the prostate posteriorly all the way up to the apex of the prostate. Working laterally I made sure I went as lateral as possible to sweep the Denonilliers' fascia off the posterior aspect of the prostate and worked my way back, I then transected the vas deferens and the left and right side the seminal vesicles were then dissected free. And then I pulled out of the pelvis. At this point the bladder was dropped creating the space of Retzius with the bladder on traction with the fourth arm. Using electrocautery I dissected in the anterior peritoneal fascia and then created the space of Retzius dissecting towards the prostate. The pelvic lymph node dissection was then performed both side. Rhe right pelvic lymph nodes the nodes that were taken on the right side extended from the right iliac artery lateral pelvic sidewall up to the junction of the artery and the lymph nodes and down to the obturator nerve and then also below the french folding machine operator nerve all the lymph nodes were removed during to remove those lymph nodes we used clips and electrocautery to control small blood vessels and also the control lymphatic. I then went to the left side and again did an extensive lymph node dissection starting of the left iliac artery extending the left iliac vein on the lateral sidewall down to the obturator nerve and the left side beyond the french folding machine operator nerve down further behind it cleaning out all the lymphatic tissue all this tissue was sent off as a specimen we use clips and electrocaute ry during the dissection. At the end we cleaned out all the lymphatic tissue on the right pelvic wall and all the lymphatic tissue in the left pelvic wall. The prostate was then cleaned of the fat over the prostate and the fourth arm was used to retract the bladder and place traction. I then identified the endopelvic fascia that was overlying the prostate on the right side I incised endopelvic fascia and wwept the levator muscles off the prostate all the way to the apex on the right side, I then worked my way anterior to the prostate then transected to the puboprostatic ligament and the underlying dorsal vein complex was not injured. I then went to the other side and identified the endopelvic fascia in the left side incised in a fashion the left side and swept the levator muscles off the prostate on the left side all the way up to the apex the puboprostatic ligament on the left side was then dissected and transected I then freed up the fascia overlying the dorsal vein complex. I then used the prograsp to encircled the dorsal vein complex with the prograsp and then switched over to the right and left needle driver supervisor and suture ligated the dorsal vein complex above the prograsp. The prograsp was then placed back in the bladder and put back on traction I then identified the junction between the bladder and the prostate and dissected down between the bladder and the prostate untilI came across the catheter we then dissected posteriorly to the bladder and prostate to free the prostate and the bladder off each other and the muscles between the bladder and the prostate was then cauterized to free up the bladder. I then went on top of the prostate and identified the endopelvic fascia on top of the prostate this was incised all the way to the apex and then we swept the en dopelvic fascia off the prostate laterally and then identified the plane between endopelvic fascia and the prosthetic pseudocapsule and swept the fascia laterally until reaching the course of the neurovascular bundles and then released the neurovascular bundles off the prostate laterally all the way back in a retrograde fashion back to the junction of the pedicles then the prostate was placed on traction with the fourth arm pulling the prostate laterally identified the pedicle to the prostate between the seminal vesicles and the and the neurovascular bundle and this was taken using sequential small hemolocks. After the pedicle was taken the I then dissected underneath the prostate sweeping the neurovascular bundle off the prostate we able to follow the nice smooth plane between the neurovascular bundle and the pseudocapsule all the way to the apex once this was identified we swept this up all the way up to the apex and there was perfect nerve sparing on the right side. Then went to the left side the prostate identified the endopelvic fascia over the left side of the prostate I incised the endopelvic fascia all the way to the apex and then swept this off laterally I then released the neurovascular bundles on the left side of the prostate sweeping him off the prostate laterally I then elevated the prostate up up with the prostate and traction identified the pedicle to the prostate on the left side and then the pedicles taken with sequential Hem-o-jaxon clips I then was able to dissected the neurovascular bundle off the left posterior aspect the prostate this was a perfect dissection all the way up on the left side following the pseudocapsule all the way up the left side until we reached the apex of the prostate. After the both the neurovascular bundles has been swept off the posterior to the prostate I then went above and transected the dorsal vein complex there was minimal to no bleeding but then dissected down to the urethra and circumfencial dissected around the urethra I then switched the right and left arm with the needle drivers and I suture-ligated the dorsal vein complex again just to ensure that there was no bleeding from the dorsal vein complex. I then transected through the urethra with scissors and the prostate was then freed and released off the prostate bed and put an Endo Catch bag. At this point the bladder neck was reconstructed and then an anastomosis was performed between the prostate and the bladder with a 3 oh V-Loc stitch in a running fashion starting from the bladder neck at the 6 o'clock position working to the 12 o'clock position with continuous stitches to complete a perfect anastomosis between the bladder and the prostate. I then placed a new catheter into the bladder, an 18 [place] coeur d'alene tip catheter flushed the bladder and there was no leakage from the anastomosis I put 10 cc in the balloon and pulled it up pulled back gently. I then ensured that there was no bleeding from the dorsal vein complex no bleeding from the neurovascular bundles FloSeal was placed as necessary once hemostasis was ensured and adequate then I placed the bladder back in position in the pelvis the prostate was exchanged to the camera port I closed the air seal port with a 10 12 Amos Shah stitch. And the extracted the prostate through the umbilicus. The robot was undocked all the ports were removed under direct visualization then closed the extraction site with 0 Vicryl with a CT1 needle once the extraction site was closed. I then closed all the incision with subcuticular stitches with 4-0 Monocryl and then bandages were placed on the incisions catheter was flushed to make sure it was draining well there was no clots and it was crystal clear patient's anesthetic was reversed he was extubated and taken back to the PACU in stable condition all the needles and sponges and instruments were accounted for. Blood loss was minimal and the drain was a 18 [place] Aburto catheter. No other surgical drain was left. I was present during the entire case. Surgeon: Heath Fernandes Type of Anesthesia: General Drains: aburto Estimated Blood Loss (mL): 160 Admit VTE Documentation VTE Present on Admission: No VTE Mechan Device Prophylaxis: SCD's VTE Pharm Prophylaxis ordered?: No
[2024-01-28] MEDS: Gentamicin Sulfate 1 OPTH.BTL 2 DRP RIGHT EYE ×2 (17:54→23:04)
[2024-01-28] MEDS: Ketorolac 15 MG/ML Vial IV ×2 (17:54→23:08)
[2024-01-28] MEDS: 0.9% Normal Saline (1000mL) 1,000 ML 125 ML IV ×2 (17:55→18:02)
[2024-01-28] MEDS: Cefazolin 1 GM/50 ML BAG IV (21:00)
[2024-01-28] MEDS: Atorvastatin Calcium 80 MG Tablet PO (21:03)
[2024-01-28] MEDS: Docusate Sodium 100 MG Capsule 200 MG PO (21:03)
[2024-01-29] VITALS (7 sets, daily range): BP systolic 126–137; BP diastolic 69–80; PULSE 63–82; RESP 15–18; TEMP 36.4–37.2; O2SAT 91–100; BMI 30.1
[2024-01-29] MEDS: Cefazolin 1 GM/50 ML BAG IV (03:56)
[2024-01-29] MEDS: 0.9% Normal Saline (1000mL) 1,000 ML 125 ML IV (03:56)
[2024-01-29] MEDS: Ketorolac 15 MG/ML Vial IV ×2 (06:32→11:38)
[2024-01-29] MEDS: Gentamicin Sulfate 1 OPTH.BTL 2 DRP RIGHT EYE ×2 (06:34→11:58)
--- NOTE | 2024-01-29 07:28 | PCM.PN.GU ---
Subjective Subjective Status post radical prostatectomy doing well he does have a little bit of scratch cornea in the left eye was given gentamicin eyedrops we can continue with this. But as long as he tolerates regular diet breakfast and lunch is able to ambulate he is having minimal pain at this point he can go home with a Galvan catheter and follow-up in my office in 2 weeks for catheter removal he will use antibiotic eyedrops at home that he has. Objective Data Objective Data Vital Signs: Vital Signs Temp Pulse Resp BP Pulse Ox O2 Del Method O2 Flow Rate 97.6 F L 70 15 132/77 H 100 Room Air 2 01/29/24 02:18 01/29/24 02:18 01/29/24 05:36 01/29/24 02:18 01/29/24 02:18 01/29/24 05:36 01/28/24 17:46 Oxygen Flow Rate (L/min) 2 Oxygen Delivery Method Room Air Weight: 97.976 kg Body Mass Index (BMI) 30.1 Intake & Output: Intake and Output for Last 24 Hours 01/27/24 01/28/24 01/29/24 23:59 23:59 23:59 Intake Total 3074.58 / 3174.58 1150 / 1150 Output Total 800 / 1050 250 / 250 Balance 2274.58 / 2124.58 900 / 900 Lab / Micro Data 01/20/24 12:52
[2024-01-29] MEDS: Docusate Sodium 100 MG Capsule 200 MG PO (09:04)
[2024-01-29] MEDS: Losartan Potassium 50 MG Tablet PO (09:04)
[2024-01-29] MEDS: Metoprolol(XL)Succ 25 MG Tablet PO (09:05)
--- NOTE | 2024-01-29 09:29 | CASEMGMT ---
RN CM into pt room, pt sitting up in chair in no distress. at bedside. Pt stated he feels comfortable with going home with aburto, nurse went over aburto instructions with him and he understands. Denied any concerns at this time.
--- NOTE | 2024-01-29 09:52 | NURSING ---
This RN gave Aburto and leg bag care instructions for home. Written instructions will be given. and patient both were educated. Mrs. Pettit was able to return correct demonstration on how to empty the aburto, switch the aburto bag to the leg bag and the leg bag back to the aburto.
--- NOTE | 2024-01-29 09:56 | NURSING ---
Pt walked in the room and now sitting in the chair. Pt will go for a walk in the [place] before lunch.
[2024-01-29] MEDS: 0.9% Saline Lock 10 ML Syringe IV (11:39)
--- NOTE | 2024-01-29 12:38 | NURSING ---
This RN entered room and of patient informed this RN that she called Dr. Villalba office to ask what medication he needed to be on since Eliquis was on hold. Mrs. Pettit stated he ordered lovenox. This RN asked both pt and if they had ever given a SQ shot, both answered no. This RN also told Kae MALONEY CM about this and that medication was not on discharge instructions since Dr. Fernandes had called it in from his office.
--- NOTE | 2024-01-29 13:42 | CASEMGMT ---
Addendum entered by Justine Walter 01/29/24 14:21: Pt stated family friend able to assist with first dose of Lovenox, pt denies any further concerns going home. Original Note: AMARA HAWTHORNE into pt room, pt lying in bed in no distress, at bedside. Pt confirmed received a text for Lovenox and cost is $30, pt confirmed cost is affordable. Pt confirmed nurse provided pt education but still not comfortable with giving injection. Stated she reached out to family friend to see if they can assist, pt is waiting to hear back from her. AMARA HAWTHORNE will also see if possible to do first dose here at the hospital before DC.
--- NOTE | 2024-01-29 14:11 | NURSING ---
Pt was not sure when Lovenox should start as Dr. Fernandes did not tell her. This RN called Dr. Fernandes to ask and he said tomorrow FridayJanuary 29 (2023). This RN also asked Dr. Fernandes if he could add lovenox to the discharge med list so we have it on his discharge instructions. No, No I can not. Dr. Fernandes raised his voice when he said that. I'm in the office and no I can not do that, I already called it in. This RN responded with okay. This RN did write lovenox 30mg SQ daily to start tomorrow Friday.
== END 2024-01-29 02:28 | disposition home or self-care (01) ==
LOC: SDC 05:24 → AC 05:25 → MS3 13:16
PROVIDERS: Anesthesiology; PCP Internal Medicine; Referring Provider Urology; Visit Provider Urology
PROC: 0VT04ZZ Resection of Prostate, Percutaneous Endoscopic Approach (ICD-10-PCS; CPT 55866; principal; 2024-01-28 07:10)
DX: C61 Malignant neoplasm of prostate (principal); N41.1 Chronic prostatitis; E78.2 Mixed hyperlipidemia; I45.10 Unspecified right bundle-branch block; I25.10 Atherosclerotic heart disease of native coronary artery without angina pectoris; I10 Essential (primary) hypertension; Z79.01 Long term (current) use of anticoagulants; Z79.899 Other long term (current) drug therapy; Z86.16 Personal history of COVID-19; Z86.711 Personal history of pulmonary embolism; Z86.718 Personal history of other venous thrombosis and embolism
CPT/HCPCS: 55866; 38571; 00840; 36415; 85027; 86850; 86900; 86901; 88305; 88307; 88309; 88312; 93005; 94668; 99252; J7030; J7120; A4216; G0463; J2405

== ENCOUNTER → 2024-03-22 | Outpatient (CLI) | payer MEDICARE, BC, SELFPAY ==
[2024-03-22 15:07] LABS: PSA,Total- Diagnostic < 0.01 ng/mL (0.0-4.0)
== END | disposition home or self-care (01) ==
LOC: LAB 13:35
PROVIDERS: PCP Internal Medicine; Referring Provider Urology; Visit Provider Urology
DX: C61 Malignant neoplasm of prostate (principal)
CPT/HCPCS: 36415; 84153

== ENCOUNTER → 2024-06-24 | Outpatient (CLI) | payer MEDICARE, BC, SELFPAY ==
[2024-06-24 13:04] LABS: PSA,Total- Diagnostic < 0.01 ng/mL (0.0-4.0)
== END | disposition home or self-care (01) ==
LOC: LAB 11:59
PROVIDERS: PCP Internal Medicine; Referring Provider Urology; Visit Provider Urology
DX: C61 Malignant neoplasm of prostate (principal)
CPT/HCPCS: 36415; 84153

== ENCOUNTER → 2024-08-02 | Outpatient (CLI) | payer MEDICARE, BC, SELFPAY ==
[2024-08-02 08:49] LABS: ALB/GLOB Ratio 1.1 RATIO (0.9-2.4); AST(SGOT) 15 U/L (15-37); Alanine Aminotransfer ALT/SGPT 17 U/L (16-61); Albumin, Serum 3.8 g/dL (3.2-5.0); Alkaline Phosphatase 97 U/L (45-117); Anion Gap 3 (5-15); BUN 21 mg/dL (7-18); BUN/Creat Ratio 16.8 RATIO (10-20); Calcium,Total 9.3 mg/dL (8.5-10.1); Chloride 105 mmol/L (98-107); Cholesterol 155 mg/dL (200); Creatinine, Serum 1.25 mg/dL (0.70-1.30); EST Glomerular Filtration Rate 61 mL/min (>60); Est Glom Filt Rate - Afr Amer 74 mL/min (>60); Globulin 3.6 g/dL (2.2-4.2); Glucose 103 mg/dL (74-106); High Density Lipoprotein 58 mg/dL; Potassium 4.5 mmol/L (3.5-5.1); Protein, Total 7.4 g/dL (6.4-8.2); Sodium Level 139 mmol/L (136-145); Triglycerides 90 mg/dL; Very Low Density Lipoprotein 18 mg/dL (5-40)
== END | disposition home or self-care (01) ==
LOC: LAB 07:59
PROVIDERS: PCP Internal Medicine; Referring Provider Internal Medicine Cardiovascular Disease; Visit Provider Internal Medicine Cardiovascular Disease
DX: I25.10 Atherosclerotic heart disease of native coronary artery without angina pectoris (principal); R94.31 Abnormal electrocardiogram [ECG] [EKG]; I10 Essential (primary) hypertension; E78.2 Mixed hyperlipidemia
CPT/HCPCS: 36415; 80053; 80061

== ENCOUNTER → 2024-10-25 | Outpatient (CLI) | payer MEDICARE, BC, SELFPAY ==
[2024-10-25 11:15] LABS: PSA,Total- Diagnostic < 0.01 ng/mL (0.0-4.0)
== END | disposition home or self-care (01) ==
LOC: LAB 10:25
PROVIDERS: PCP Internal Medicine; Referring Provider Urology; Visit Provider Urology
DX: C61 Malignant neoplasm of prostate (principal)
CPT/HCPCS: 36415; 84153

== ENCOUNTER → 2025-04-25 | Outpatient (CLI) | payer MEDICARE, BC, SELFPAY ==
[2025-04-25 12:27] LABS: PSA,Total- Diagnostic < 0.02 ng/mL (0.00-4.00)
== END | disposition home or self-care (01) ==
LOC: LAB 11:36
PROVIDERS: PCP Internal Medicine; Referring Provider Urology; Visit Provider Urology
DX: C61 Malignant neoplasm of prostate (principal)
CPT/HCPCS: 36415; 84153

== ENCOUNTER → 2025-07-26 | Outpatient (CLI) | payer MEDICARE, BC, SELFPAY ==
[2025-07-26 10:22] LABS: AST(SGOT) 22 U/L (<=37); Alanine Aminotransfer ALT/SGPT 22 U/L (<=46); Albumin, Serum 4.5 g/dL (3.4-4.8); Alkaline Phosphatase 81 U/L (40-129); Bilirubin, Direct 0.33 mg/dL (0.00-0.30); Globulin 3.1 g/dL (2.2-4.2)
[2025-07-26 10:29] LABS: AST(SGOT) 24 U/L (<=37); Alanine Aminotransfer ALT/SGPT 21 U/L (<=46); Albumin, Serum 4.5 g/dL (3.4-4.8); Alkaline Phosphatase 82 U/L (40-129); Anion Gap 8 (5-15); BUN 19 mg/dL (4-19); BUN/Creat Ratio 14.7 RATIO (10-20); Calcium,Total 9.8 mg/dL (7.6-11.0); Carbon Dioxide 29.3 mmol/L (21.0-32.0); Chloride 103 mmol/L (98-108); Cholesterol 159 mg/dL (<=200); Globulin 3.0 g/dL (2.2-4.2); Glucose 114 mg/dL (70-99); Low Density Lipoprotein Calc. 84 mg/dL; Potassium 5.0 mmol/L (3.3-5.1); Triglycerides 99 mg/dL; Very Low Density Lipoprotein 20 mg/dL (5-40); cholesterol:hdl ratio screen 2.81
== END | disposition home or self-care (01) ==
PROVIDERS: Nurse Practitioner Family; PCP Internal Medicine; Referring Provider Internal Medicine Cardiovascular Disease; Visit Provider Internal Medicine Cardiovascular Disease
DX: E78.2 Mixed hyperlipidemia (principal); I10 Essential (primary) hypertension
CPT/HCPCS: 36415; 80053; 80061; 80076

== ENCOUNTER → 2025-08-16 | Outpatient (CLI) | payer MEDICARE, BC, SELFPAY ==
--- NOTE | 2025-08-16 14:41 | ECHOD_ITS ---
Reason For Study Reason For Study: Dyspnea/SOB Procedure This was a 2D Doppler, Color Flow transthoracic echocardiogram. Exam performed in department. Left Ventricle Normal LV size. Mild concentric left ventricular hypertrophy. The left ventricular ejection fraction is 65 %. Stage 1 diastolic dysfunction. Right Ventricle Moderately dilated right ventricular cavity with mild to moderate RV systolic dysfunction. Atria The left atrium is mildly enlarged. Normal right atrium. Mitral Valve Trivial mitral valve insufficiency. Tricuspid Valve Trivial tricuspid valve insufficiency. Right ventricular systolic pressure estimated to be 41 mmHg. Aortic Valve Aortic sclerosis, no stenosis. Trivial aortic valve insufficiency. Pulmonic Valve Mild-Moderate (1-2+) pulmonic valve insufficiency. Great Vessels Normal sized aortic root. Pericardium/Pleural No pericardial effusion. MMode/2D Measurements & Calculations LVIDd: 4.3 cm IVSd: 1.3 cm Ao root diam: 3.5 cm LVIDs: 2.4 cm LVPWd: 1.1 cm RVDd: 4.3 cm FS: 43.8 % LAV(MOD-bp): 61.4 ml LVAd ap4: 27.5 cm2 SV(MOD-sp4): 48.8 ml LAV(MOD-bp) Indexed: 27.8 ml/m2 LVLd ap4: 8.5 cm SI(MOD-sp4): 22.1 ml/m2 LAV(MOD-sp2): 55.0 ml EDV(MOD-sp4): 76.9 ml LAV(MOD-sp4): 66.4 ml EDV(sp4-el): 75.9 ml LVAs ap4: 15.1 cm2 LVLs ap4: 6.9 cm ESV(MOD-sp4): 28.1 ml ESV(sp4-el): 27.8 ml EF(MOD-sp4): 63.5 % EF(sp4-el): 63.4 % SV(sp4-el): 48.1 ml LA A4 area: 23.4 cm2 LA dimension(2D): 4.4 cm RA A4 area: 14.6 cm2 TAPSE: 1.7 cm Time Measurements MV dec time: 0.27 sec Doppler Measurements & Calculations MV E max linwood: 50.0 cm/sec Lat Peak E' Linwood: 15.6 cm/sec Med Peak E' Linwood: 7.2 cm/sec MV A max linwood: 85.0 cm/sec E/E' lat: 3.2 E/E' med: 7.0 MV E/A: 0.59 MV V2 max: 104.2 cm/sec MV P1/2t max linwood: 57.4 cm/sec Ao V2 max: 138.4 cm/sec MV max P.3 mmHg MV P1/2t: 98.2 msec Ao max P.7 mmHg MV V2 mean: 44.8 cm/sec Ao V2 mean: 101.3 cm/sec MV mean P.98 mmHg MV dec slope: 171.1 cm/sec2 Ao mean P.6 mmHg MV V2 VTI: 26.6 cm MVA(P1/2t): 2.2 cm2 Ao V2 VTI: 31.8 cm AV (velocity ratio): 0.81 LV V1 max: 134.8 cm/sec PA V2 max: 123.1 cm/sec LV V1 max P.3 mmHg PI dec slope: 92.0 cm/sec2 LV V1 mean P.0 mmHg LV V1 mean: 80.8 cm/sec LV V1 VTI: 25.6 cm TR max linwood: 299.4 cm/sec TR max P.9 mmHg ECHO/Echo Complete Interpretation Summary Mild concentric left ventricular hypertrophy. The left ventricular ejection fraction is 65 %. Stage 1 diastolic dysfunction. Moderately dilated right ventricular cavity with mild to moderate RV systolic d ysfunction The left atrium is mildly enlarged. Right ventricular systolic pressure estimated to be 41 mmHg. Aortic sclerosis, no stenosis. Mild-Moderate (1-2+) pulmonic valve insufficiency. Ordering Physician: Ben Smith Referring Physician: Ben Smith Performed By: Moe De Leon [facility]
== END | disposition home or self-care (01) ==
LOC: CVS 14:40
PROVIDERS: PCP Internal Medicine; Referring Provider Internal Medicine Cardiovascular Disease; Visit Provider Internal Medicine Cardiovascular Disease
DX: I25.10 Atherosclerotic heart disease of native coronary artery without angina pectoris (principal); I10 Essential (primary) hypertension; E78.5 Hyperlipidemia, unspecified; Z86.711 Personal history of pulmonary embolism; R06.09 Other forms of dyspnea
CPT/HCPCS: 93306